=== PATIENT | female | born 1945 ===

== ENCOUNTER 2020-08-03 17:28 | Inpatient (IN) | payer OTHER, SELFPAY ==
[2020-08-03 17:53] VITALS: BP 141/88; PULSE 83; RESP 16; TEMP 37.1; O2SAT 96; BMI 37.5
--- NOTE | 2020-08-03 18:33 | CT_ITS ---
EXAMINATION: CT ABDOMEN AND PELVIS WITHOUT CONTRAST CLINICAL INFORMATION: Bilateral abdominal pain. History of small bowel obstruction, hernias, diverticulitis with perforation. COMPARISON: No recent priors. CT from 01/25/2009. TECHNIQUE: Multidetector volumetric imaging was performed from the superior aspect of the liver through the pubic symphysis. Sagittal and coronal reformatted images were obtained on the technologist's workstation. This CT examination was performed using dose optimization techniques as appropriate, variously including the following: *Automated exposure control *Adjustment of mA and/or kV according to patient size (this includes techniques or standardized protocols for targeted exams where dose is matched to indication/reason for exam; i.e. extremities or head) *Use of iterative reconstruction technique DLP: 839 mGy-cm FINDINGS: LUNG BASES: The lung bases are clear. The visualized cardiac structures are unremarkable. Small to moderate hiatal hernia. LIVER, GALLBLADDER, AND BILIARY TREE: The liver is normal in size, shape, and attenuation. No focal hepatic lesion or biliary ductal dilatation is present. The gallbladder is unremarkable with no evidence of radiopaque gallstones, gallbladder wall thickening, or obvious pericholecystic inflammatory changes. PANCREAS: Mild fatty atrophy of the pancreatic parenchyma. No focal abnormality. SPLEEN: Unremarkable. ADRENAL GLANDS: Unremarkable. KIDNEYS AND URETERS: The kidneys are normal in size, shape, and attenuation. No hydronephrosis, hydroureter, or calculi seen. No perinephric stranding. Lower pole exophytic renal cyst which measures 5.4 cm. BLADDER: Decompressed with no gross abnormality. GASTROINTESTINAL TRACT: Small to moderate hiatal hernia. There is mild fluid-filled prominence of the proximal small bowel. Dilated small bowel extends into the pelvis and right lower quadrant with gradual transition to decompressed small bowel in the right lower quadrant. The distal small bowel is normal in caliber. No colonic wall thickening or inflammatory change. Colonic diverticulosis noted without diverticulitis. There is a normal volume of stool throughout the colon. No free air. No free fluid. ABDOMINAL WALL: Multiple abdominal wall hernia repairs are noted. Small area of fluid at the ventral abdominal wall as seen on series 3 image 46 measuring 3.6 x 1.2 x 2 cm. LYMPH NODES: Normal. VASCULAR: Normal caliber aorta with mild atherosclerotic calcification. PELVIC VISCERA: The uterus and adnexa are unremarkable. OSSEOUS STRUCTURES: No acute or suspicious osseous abnormality. Mild degenerative changes in the hips. There is grade 1 anterolisthesis of L5 on S1 with disc space narrowing. Diffuse vacuum disc phenomenon with endplate osteophyte formation. CT/CT abdomen pelvis wo con IMPRESSION: Small bowel fluid-filled dilatation involving the proximal small bowel through the right lower quadrant where there is gradual transition to normal caliber small bowel. With this appearance this could represent a partial obstruction or ileus. This is not the appearance for high-grade obstruction. Small to moderate hiatal hernia.
--- NOTE | 2020-08-03 18:53 | ED_ITS ---
HPI - Abdominal Pain General Chief Complaint: Abdominal Pain Stated Complaint: abdominal pain,vomiting Time Seen by Provider: 08/03/20 18:23 Source: patient Mode of arrival: ambulatory Limitations: no limitations History of Present Illness HPI narrative: Patient comes to emergency room complaining of abdominal pain and vomiting and diarrhea. Patient states it has been ongoing for approximately 20 hours now. Yesterday, patient ate a salad that had been for a few days, patient ate it anyways. The patient states that soon after she started feeling abdominal pain, had 2 episodes of vomiting, and has been having loose stool. Patient states most of the pain is in the bilateral upper part of her abdomen. Patient states that she has history of small-bowel obstructions and is concerned that she may have a small bowel obstruction Related Data Allergies Allergy/AdvReac Type Severity Reaction Status Date / Time sulfamethoxazole Allergy Mild RASH Unverified 05/03/20 14:49 [From Bactrim] trimethoprim [From Bactrim] Allergy Mild RASH Unverified 05/03/20 14:49 Sulfa (Sulfonamide Allergy Unknown rash Verified 04/05/20 00:00 Antibiotics) amoxicillin AdvReac Unknown nausea and Verified 04/05/20 00:00 vomiting lisinopril AdvReac Unknown cough Verified 04/05/20 00:00 bactrim Allergy Unknown hives Uncoded 04/20/12 00:00 Review of Systems Review of Systems Constitutional : No Weight loss, No Fever, No Chills, No Night Sweats, No Fatigue, No Malaise ENT/Mouth : No Hearing loss, No Ear Pain, No Nasal Congestion, No Sinus Pain, No Hoarseness, No sore throat, No Rhinorrhea, No Swallowing Difficulty Eyes: No Eye Pain, No Swelling, No Redness, No Foreign Body, No Discharge, No Vision Changes Cardiovascular : No Chest Pain, No SOB, No Dyspnea on Exertion, No Orthopnea, No Edema, No Palpitations Respiratory : No Cough, No Sputum, No Wheezing, No Smoke Exposure, No Dyspnea Gastrointestinal : Patient complaining of nausea, vomiting, loose stools No Constipation, complaining of right upper and left upper abdominal pain, No Hematochezia, No Melena Genitourinary : no irregular bleeding, No Dysuria, No Urinary Frequency, No Hematuria, No Urinary Incontinence, No Urgency, No Flank Pain, No Urinary Flow Changes, No Hesitancy Musculoskeletal : No joint pain, No Myalgias, No Joint Swelling Skin : No Skin Lesions, No rash Neuro : No Weakness, No Numbness, No Paresthesias, No Loss of Consciousness, No Dizziness, No Headache Psych : No Anxiety/Panic, No Depression, No SI/HI/AH/VH, No Social Issues, Heme/Lymph: No Bruising, No Bleeding,No Lymphadenopathy Endocrine : No Polyuria, No Polydipsia, No Temperature Intolerance Physical Exam Vital Signs: Vital Signs: Last Vital Signs Temp 98.7 F 08/03/20 17:53 Pulse 83 08/03/20 17:53 Resp 16 08/03/20 17:53 BP 141/88 H 08/03/20 17:53 Pulse Ox 96 08/03/20 17:53 Body Mass Index 37.5 Appearance: Alert. Oriented X3. No acute distress. Well-appearing Eyes: Pupils equal, round and reactive to light. ENT: Pharynx normal. Neck: Normal inspection. Neck supple. No lymph nodes noted. No crepitus CVS: Normal heart rate and rhythm. Pulses normal. Normal S1 and S2 Respiratory: No respiratory distress. Breath sounds normal. No Wheezing. No rales Abdomen: Soft and mildly tender to palpation in bilateral upper quadrant, No rigidity. No distention. Skin: Skin warm and dry. Normal skin color. Normal skin turgor. Extremities: No lower extremity edema. No lower extremity edema. No Lacerations. No Rash Neuro: Oriented X 3. No motor deficit. No sensory deficit. Moving all extermities. No slurred speech. Course Course Course Narrative: I discussed the CT scan with Dr. Castro, at this time it does not seem that the patient will need surgery, he will be the consulting physician. Dr. Anurag Shaffer will be admitting the patient. At this time, unclear if this is ileus versus SBO. MDM - Abdominal Pain Lab Data Result diagrams: 08/03/20 19:08 08/03/20 19:08 Labs: Lab Results 08/03/20 08/03/20 08/03/20 Range/Units 19:08 19:08 19:08 WBC 11.5 H (4.8-10.8) X10*3/uL RBC 5.12 (4.20-5.50) X10*6/uL Hgb 15.8 (12.0-16.0) g/dl Hct 47.8 H (37-47) % MCV 93.4 (80-98) fL MCH 30.9 (27.0-33.0) pg MCHC 33.1 (31.0-35.0) g/dl RDW 13.4 (11.0-16.0) % Plt Count 266 (160-400) X10*3/uL MPV 11.4 (9.4-12.3) fL Immature Gran % (Auto) 0.3 (0.0-0.4) % Neut % (Auto) 79.4 H (45-73) % Lymph % (Auto) 12.2 L (20-40) % [place] % (Auto) 6.4 (2-11) % Eos % (Auto) 1.4 (0-4) % Baso % (Auto) 0.3 (0-2) % Lymph # (Auto) 1.4 (1.2-4.9) X10*3/uL [place] # (Auto) 0.7 (0.1-1.2) X10*3/uL Eos # (Auto) 0.2 (0.0-0.4) X10*3/uL Baso # (Auto) 0.0 (0.0-0.2) X10*3/uL Abs Immat Gran (auto) 0.04 H (0.00-0.03) X10*3/uL Absolute Neuts (auto) 9.1 H (2.0-8.3) X10*3/uL Absolute Nucleated RBC 0.000 (0.0-0.012) X10*3/uL Nucleated RBC % (auto) 0.0 (0.0-0.2) /100WBC Sodium 141 (135-145) mmol/L Potassium 4.1 (3.3-5.1) mmol/l Chloride 104 (96-108) mmol/L Carbon Dioxide 30 H (22-29) mmol/L Anion Gap 11 L (12-20) BUN 14 (9-16) mg/dL Creatinine 0.79 (0.5-1.4) mg/dL Estim Creat Clear Calc 72.6 Estimated GFR > 60 Random Glucose 117 H (60-115) mg/dL Calcium 9.4 (8.4-10.2) mg/dL Total Bilirubin 0.8 Cancelled (0.0-1.0) mg/dL Direct Bilirubin 0.3 Cancelled (0.0-0.5) mg/dL AST 16 Cancelled (5-31) U/L ALT 17 Cancelled (0-31) U/L Alkaline Phosphatase 93 Cancelled (39-117) U/L Total Protein 6.4 L Cancelled (6.5-8.0) g/dL Albumin 3.8 Cancelled (3.5-5.0) g/dL Lipase 20 Cancelled (8-78) U/L Imaging Data CT scan - abdomen: Radiologist's impression: FINDINGS: LUNG BASES: The lung bases are clear. The visualized cardiac structures are unremarkable. Small to moderate hiatal hernia. LIVER, GALLBLADDER, AND BILIARY TREE: The liver is normal in size, shape, and attenuation. No focal hepatic lesion or biliary ductal dilatation is present. The gallbladder is unremarkable with no evidence of radiopaque gallstones, gallbladder wall thickening, or obvious pericholecystic inflammatory changes. PANCREAS: Mild fatty atrophy of the pancreatic parenchyma. No focal abnormality. SPLEEN: Unremarkable. ADRENAL GLANDS: Unremarkable. KIDNEYS AND URETERS: The kidneys are normal in size, shape, and attenuation. No hydronephrosis, hydroureter, or calculi seen. No perinephric stranding. Lower pole exophytic renal cyst which measures 5.4 cm. BLADDER: Decompressed with no gross abnormality. GASTROINTESTINAL TRACT: Small to moderate hiatal hernia. There is mild fluid-filled prominence of the proximal small bowel. Dilated small bowel extends into the pelvis and right lower quadrant with gradual transition to decompressed small bowel in the right lower quadrant. The distal small bowel is normal in caliber. No colonic wall thickening or inflammatory change. Colonic diverticulosis noted without diverticulitis. There is a normal volume of stool throughout the colon. No free air. No free fluid. ABDOMINAL WALL: Multiple abdominal wall hernia repairs are noted. Small area of fluid at the ventral abdominal wall as seen on series 3 image 46 measuring 3.6 x 1.2 x 2 cm. LYMPH NODES: Normal. VASCULAR: Normal caliber aorta with mild atherosclerotic calcification. PELVIC VISCERA: The uterus and adnexa are unremarkable. OSSEOUS STRUCTURES: No acute or suspicious osseous abnormality. Mild degenerative changes in the hips. There is grade 1 anterolisthesis of L5 on S1 with disc space narrowing. Diffuse vacuum disc phenomenon with endplate osteophyte formation. CT/CT abdomen pelvis wo con IMPRESSION: Small bowel fluid-filled dilatation involving the proximal small bowel through the right lower quadrant where there is gradual transition to normal caliber small bowel. With this appearance this could represent a partial obstruction or ileus. This is not the appearance for high-grade obstruction. Small to moderate hiatal hernia. Discharge Plan Discharge Clinical Impression: Ileus Patient Disposition: Admitted As Inpatient [facility] Past Medical History Medical History Atrial fibrillation COPD, mild Migraine Morbid obesity Social History Social History Alcohol intake: never Use of substances other than those prescribed or required for medical reasons: No Advance Directives: No Advance Directives Information Provided: No
[2020-08-03] MEDS: 0.9 % Sodium Chloride 1,000 ML 999 ML IVCONT (19:10)
[2020-08-03] MEDS: ondansetron HCL 4 MG/2 ML VIAL IVPUSH (19:11)
[2020-08-03 19:14] LABS: MANUAL DIFF FLAG NO
[2020-08-03 19:17] LABS: Basophils Percent Auto 0.3 % (0-2); Eosinophils Absolute Auto 0.2 X10*3/uL (0.0-0.4); Eosinophils Percent Auto 1.4 % (0-4); Hematocrit 47.8 % (37-47); Hemoglobin 15.8 g/dl (12.0-16.0); Imm Gran Abs Auto 0.04 X10*3/uL (0.00-0.03); Imm Gran Pct Auto 0.3 % (0.0-0.4); Lymphocytes Absolute Auto 1.4 X10*3/uL (1.2-4.9); Lymphocytes Percent Auto 12.2 % (20-40); Mean Corpuscular HGB Conc 33.1 g/dl (31.0-35.0); Mean Corpuscular Hemoglobin 30.9 pg (27.0-33.0); Mean Corpuscular Volume 93.4 fL (80-98); Mean Platelet Volume 11.4 fL (9.4-12.3); Monocytes Absolute Auto 0.7 X10*3/uL (0.1-1.2); Monocytes Percent Auto 6.4 % (2-11); Neutrophils Absolute Auto 9.1 X10*3/uL (2.0-8.3); Neutrophils Percent Auto 79.4 % (45-73); Platelet Count 266 X10*3/uL (160-400); Red Blood Count 5.12 X10*6/uL (4.20-5.50); Red Cell Distribution Width 13.4 % (11.0-16.0); White Blood Count 11.5 X10*3/uL (4.8-10.8)
[2020-08-03 20:16] LABS: Alanine Aminotransferase 17 U/L (0-31); Albumin Level 3.8 g/dL (3.5-5.0); Alkaline Phosphatase 93 U/L (39-117); Anion Gap 11 (12-20); Aspartate Amino Transferase 16 U/L (5-31); Bilirubin Direct 0.3 mg/dL (0.0-0.5); Bilirubin Total 0.8 mg/dL (0.0-1.0); Blood Urea Nitrogen 14 mg/dL (9-16); Calcium 9.4 mg/dL (8.4-10.2); Carbon Dioxide 30 mmol/L (22-29); Chloride 104 mmol/L (96-108); Creatinine Clr Calc Pharmacy 72.6; Estimated Glomerular Filt Rate > 60; Glucose Random 117 mg/dL (60-115); Lipase 20 U/L (8-78); Potassium 4.1 mmol/l (3.3-5.1); Sodium 141 mmol/L (135-145); Total Protein 6.4 g/dL (6.5-8.0)
[2020-08-03] MEDS: Ketorolac Tromethamine 30 MG/ML VIAL IVPUSH (21:13)
[2020-08-03 22:07] VITALS: PULSE 73; RESP 16; TEMP 37.1; O2SAT 95
--- NOTE | 2020-08-03 23:51 | PM.IMHP ---
History of Present Illness Date of Service: 08/03/20 Chief Complaint: Abdominal pain 74 y/o with PmHX of HTN, Asthma, afib? and multiple intrabadominal surgeries who presented from home due to abdominal pain/Nausea/Vomiting. Per history provided by the patient, yesterday afternoon had an epigastric discomfort lasting several minutes associated with nausea and vomiting x 1. Today patient reports that symptoms returned for what decided to come to the ED. Patient has a strong hx of multiple intra abdominal surgeries including Large bowel perforation repair and hernia repair. On presentation to the ED patient is found to be hemodynamically stable, WBC of 11.5, CT abdomen showing partial obstruction or ileus. General surgery was made aware and Decision was given to medicine for admission. Patient seen and examined at the bedside, laying down in bed in no acute distress. ROS as above otherwise negative. Physical exam unremarkable. PMHX; HTN, Asthma, Large bowel perforation s/p repair and Hernia repair, Afib? PSX: as above Toxic habits: No hx of alcohol abuse, smoking or IVDA Review of Systems Constitutional: Constitutional: Reports as per [facility] Medical History Atrial fibrillation COPD, mild Migraine Morbid obesity Functional capacity: independent ambulation Social History Alcohol intake: never Use of substances other than those prescribed or required for medical reasons: No Advance Directives: No Advance Directives Information Provided: No Meds Allergies Allergy/AdvReac Type Severity Reaction Status Date / Time sulfamethoxazole Allergy Mild RASH Unverified 05/03/20 14:49 [From Bactrim] trimethoprim [From Bactrim] Allergy Mild RASH Unverified 05/03/20 14:49 Sulfa (Sulfonamide Allergy Unknown rash Verified 04/05/20 00:00 Antibiotics) amoxicillin AdvReac Unknown nausea and Verified 04/05/20 00:00 vomiting lisinopril AdvReac Unknown cough Verified 04/05/20 00:00 bactrim Allergy Unknown hives Uncoded 04/20/12 00:00 Home Medications Medication Instructions Recorded Confirmed Type Vitamin D (with calcium) 1 tab PO DAILY 08/03/20 08/03/20 History fluticasone furoate-vilanterol 2 inh INHALATION DAILY 08/03/20 08/03/20 History [Juanjo Parrish] metoprolol succinate 1 tab PO DAILY 08/03/20 08/03/20 History Physical Exam Vital Signs and Narrative: Vital Signs: Last Vital Signs Temp 98.8 F 08/03/20 22:07 Pulse 73 08/03/20 22:07 Resp 16 08/03/20 22:07 BP 141/88 H 08/03/20 17:53 Pulse Ox 95 08/03/20 22:07 Body Mass Index 37.5 Const: General: cooperative, comfortable and no acute distress HENMT: Head: Yes normal to inspection Eyes: General: appearance normal, both eyes and all related structures Neck: Yes normal visual inspection Chest: Chest palpation & inspection: normal inspection of the chest Resp: Effort & Inspection: normal respiratory effort Auscultation: clear to auscultation bilaterally Cardio: Jugular venous distension: no JVD Rate: regular rate Rhythm: regular rhythm Heart sounds: S1 normal heart sound present and S2 normal heart sound present GI: Inspection: Yes normal to inspection Percussion: Yes normal to percussion Skin: General skin exam: no rashes or lesions noted Results Labs CBC and Chem 7: 08/03/20 19:08 08/03/20 19:08 Labs: Laboratory Results - last 24 hr 08/03/20 08/03/20 08/03/20 19:08 19:08 19:08 MCV 93.4 MCH 30.9 MCHC 33.1 RDW 13.4 Plt Count 266 MPV 11.4 Immature Gran % (Auto) 0.3 Neut % (Auto) 79.4 H Lymph % (Auto) 12.2 L [place] % (Auto) 6.4 Eos % (Auto) 1.4 Baso % (Auto) 0.3 Lymph # (Auto) 1.4 [place] # (Auto) 0.7 Eos # (Auto) 0.2 Baso # (Auto) 0.0 Abs Immat Gran (auto) 0.04 H Absolute Neuts (auto) 9.1 H Absolute Nucleated RBC 0.000 Nucleated RBC % (auto) 0.0 Anion Gap 11 L Estim Creat Clear Calc 72.6 Estimated GFR > 60 Random Glucose 117 H Calcium 9.4 Total Bilirubin 0.8 Cancelled Direct Bilirubin 0.3 Cancelled AST 16 Cancelled ALT 17 Cancelled Alkaline Phosphatase 93 Cancelled Total Protein 6.4 L Cancelled Albumin 3.8 Cancelled Lipase 20 Cancelled Imaging Radiologist's Impressions: Impressions Abdomen/Pelvis CT 08/03/20 18:33 IMPRESSION: Small bowel fluid-filled dilatation involving the proximal small bowel through the right lower quadrant where there is gradual transition to normal caliber small bowel. With this appearance this could represent a partial obstruction or ileus. This is not the appearance for high-grade obstruction. Small to moderate hiatal hernia. Assessment and Plan (1) SBO (small bowel obstruction): Status: Acute Serial abdominal exams Keep K >4 and Mg >2 IV hydration Pain control General Surgery (2) Hypertension: Status: Acute continue with home BP meds (3) Asthma: Status: Acute continue with inhaler home dose
[2020-08-04] VITALS: BP 164/89; PULSE 75; RESP 15; TEMP 36.3; O2SAT 95
[2020-08-04 00:37] LABS: COVID-19 Test Negative (Negative)
[2020-08-04] MEDS: 0.9 % Sodium Chloride 1,000 ML 75 ML IVCONT (01:56)
[2020-08-04] MEDS: 0.9 % Sodium Chloride Flush 3 ML SYRINGE IVFLUSH (01:57)
[2020-08-04 06:30] LABS: MANUAL DIFF FLAG NO
[2020-08-04 06:55] LABS: Basophils Percent Auto 0.4 % (0-2); Eosinophils Absolute Auto 0.4 X10*3/uL (0.0-0.4); Hematocrit 40.4 % (37-47); Hemoglobin 12.9 g/dl (12.0-16.0); Imm Gran Abs Auto 0.04 X10*3/uL (0.00-0.03); Imm Gran Pct Auto 0.6 % (0.0-0.4); Lymphocytes Absolute Auto 1.9 X10*3/uL (1.2-4.9); Mean Corpuscular HGB Conc 31.9 g/dl (31.0-35.0); Mean Corpuscular Hemoglobin 30.4 pg (27.0-33.0); Mean Corpuscular Volume 95.3 fL (80-98); Mean Platelet Volume 11.8 fL (9.4-12.3); Monocytes Absolute Auto 0.6 X10*3/uL (0.1-1.2); Monocytes Percent Auto 8.6 % (2-11); Neutrophils Absolute Auto 3.8 X10*3/uL (2.0-8.3); Neutrophils Percent Auto 56.4 % (45-73); Platelet Count 220 X10*3/uL (160-400); Red Blood Count 4.24 X10*6/uL (4.20-5.50); Red Cell Distribution Width 13.5 % (11.0-16.0); White Blood Count 6.7 X10*3/uL (4.8-10.8)
[2020-08-04 07:11] LABS: Anion Gap 11 (12-20); Blood Urea Nitrogen 14 mg/dL (9-16); Calcium 8.5 mg/dL (8.4-10.2); Carbon Dioxide 26 mmol/L (22-29); Chloride 108 mmol/L (96-108); Creatinine Clr Calc Pharmacy 72.6; Estimated Glomerular Filt Rate > 60; Glucose Random 90 mg/dL (60-115); Potassium 4.2 mmol/l (3.3-5.1); Sodium 141 mmol/L (135-145)
[2020-08-04 08:00] VITALS: BP 129/80; PULSE 74; RESP 20; TEMP 36.9; O2SAT 95
[2020-08-04] MEDS: Fluticasone/Vilanterol 100/25 BLST.W.DEV 2 PUFF INHALE (08:02)
--- NOTE | 2020-08-04 09:58 | P.CONGS_ITS ---
History of Present Illness Consult details Consult date: 08/04/20 Narrative: 74F admitted last night for abdominal pain. She describes having upper abdominal pain starting the evening of . This persisted yesterday, become diffuse. She says she had 2 episodes of emesis at home. She says she had a lot of reflux as well. She came to the ED last night. A CT scan done showed some dilated small bowel loops suggesting partinal SBO vs. ileus. She feels much better today and stated she wants to sign out. She has had multiple abdl surgeries, including colon resection for perforated d iverticulitis(?), and incisional hernia repairs with mesh. Review of Systems Constitutional: Constitutional: Denies chills and Denies fever(s) Cardiovascular: Cardiovascular: Denies chest pain, Denies dyspnea and Denies dyspnea on exertion Respiratory: Respiratory: Denies cough, Denies dyspnea and Denies dyspnea on exertion Gastrointestinal: Gastrointestinal: Denies hematochezia and Denies change in bowel habits Genitourinary: Genitourinary: Denies hematuria Musculoskeletal: Musculoskeletal: Denies back pain and Denies limited range of motion Neurologic: Denies focal weakness and Denies convulsions Psychiatric: Psychiatric: Denies depression and Denies mood swings PMFSH Past Medical History Medical History Atrial fibrillation COPD, mild Migraine Morbid obesity Functional capacity: independent ambulation Surgical History Surgical History (Updated 08/04/20 @ 10:02 by Bertrand Castro MD) History of incisional hernia repair S/P colon resection Social History Social History Household Members: Other Housing: House Do you presently have visiting nurse or other home services: No Alcohol intake: never Smoking Status: Former smoker Tobacco Type: Cigarette Use of substances other than those prescribed or required for medical reasons: No Have you been hit, kicked, punched, or otherwise hurt by someone within the past year? If so, by whom?: No Do you feel safe in your current relationship?: Yes Is there a partner from a previous relationship who is making you feel unsafe now?: No Are you made to feel afraid or neglected: No Advance Directives: No Advance Directives Information Provided: No Do you have thoughts of harming others: None Do you have a plan to hurt others: No Plan Recently lost weight without trying: Yes Meds Allergies Allergy/AdvReac Type Severity Reaction Status Date / Time sulfamethoxazole Allergy Mild RASH Verified 08/04/20 01:46 [From Bactrim] trimethoprim [From Bactrim] Allergy Mild RASH Verified 08/04/20 01:46 Sulfa (Sulfonamide Allergy Unknown rash Verified 08/04/20 01:46 Antibiotics) amoxicillin AdvReac Unknown nausea and Verified 08/04/20 01:46 vomiting lisinopril AdvReac Unknown cough Verified 08/04/20 01:46 bactrim Allergy Unknown hives Uncoded 08/04/20 01:46 Home Medications Medication Instructions Recorded Confirmed Type Vitamin D (with calcium) 1 tab PO DAILY 08/03/20 08/03/20 History fluticasone furoate-vilanterol 2 inh INHALATION DAILY 08/03/20 08/03/20 History [Breo Ellipta] metoprolol succinate 1 tab PO DAILY 08/03/20 08/03/20 History Physical Exam Vital Signs: Vital Signs: Last Vital Signs Temp 98.4 F 08/04/20 08:00 Pulse 74 08/04/20 08:00 Resp 20 08/04/20 08:00 BP 129/80 08/04/20 08:00 Pulse Ox 95 08/04/20 08:00 Body Mass Index 37.5 Const: Other: obese General: comfortable and no acute distress Orientation/consciousness: patient oriented x3 Neck: Neck: Yes no lymphadenopathy Resp: Auscultation: clear to auscultation bilaterally Cardio: Rhythm: regular rhythm GI: Palpation (GI): Soft to palpation, nontender and no guarding Neuro: General: patient oriented x3 Results Labs Result diagrams: 08/04/20 05:56 08/04/20 05:56 Labs: Abnormal lab results 08/03/20 08/03/20 08/04/20 Range/Units 19:08 19:08 05:56 WBC 11.5 H (4.8-10.8) X10*3/uL Hct 47.8 H (37-47) % Immature Gran % (Auto) 0.6 H (0.0-0.4) % Neut % (Auto) 79.4 H (45-73) % Lymph % (Auto) 12.2 L (20-40) % Eos % (Auto) 6.0 H (0-4) % Abs Immat Gran (auto) 0.04 H 0.04 H (0.00-0.03) X10*3/uL Absolute Neuts (auto) 9.1 H (2.0-8.3) X10*3/uL Carbon Dioxide 30 H (22-29) mmol/L Anion Gap 11 L (12-20) Random Glucose 117 H (60-115) mg/dL Total Protein 6.4 L (6.5-8.0) g/dL 08/04/20 Range/Units 05:56 WBC (4.8-10.8) X10*3/uL Hct (37-47) % Immature Gran % (Auto) (0.0-0.4) % Neut % (Auto) (45-73) % Lymph % (Auto) (20-40) % Eos % (Auto) (0-4) % Abs Immat Gran (auto) (0.00-0.03) X10*3/uL Absolute Neuts (auto) (2.0-8.3) X10*3/uL Carbon Dioxide (22-29) mmol/L Anion Gap 11 L (12-20) Random Glucose (60-115) mg/dL Total Protein (6.5-8.0) g/dL Short CBC 08/03/20 08/04/20 Range/Units 19:08 05:56 WBC 11.5 H 6.7 (4.8-10.8) X10*3/uL Hgb 15.8 12.9 (12.0-16.0) g/dl Hct 47.8 H 40.4 (37-47) % Plt Count 266 220 (160-400) X10*3/uL BMP 08/03/20 08/04/20 19:08 05:56 Sodium 141 141 Potassium 4.1 4.2 Chloride 104 108 Carbon Dioxide 30 H 26 BUN 14 14 Creatinine 0.79 0.79 Calcium 9.4 8.5 D Liver Function 08/03/20 08/03/20 Range/Units 19:08 19:08 Total Bilirubin 0.8 Cancelled (0.0-1.0) mg/dL Direct Bilirubin 0.3 Cancelled (0.0-0.5) mg/dL AST 16 Cancelled (5-31) U/L ALT 17 Cancelled (0-31) U/L Alkaline Phosphatase 93 Cancelled (39-117) U/L Albumin 3.8 Cancelled (3.5-5.0) g/dL All other labs normal. Assessment and Plan (1) SBO (small bowel obstruction): Status: Acute I have reviewed her CT scan images and this shows mild small bowel dilatation proximally, tapering in the pelvis. In view of her multiple surgeries, this likely represents early partial SBO, although an ileus is also a differential. She feels much better and states she is passing flatus. She has had no vomitting overnight. I explained to her that I would recommend starting her on clear liquids and we can advance her diet as tolerated. She says she is signing out against medical advice. She understands the possible consequences, including recurrence of symptoms, and even aspiration with vomitting. She does have a very benign exam.
--- NOTE | 2020-08-04 10:50 | MHC.CM.PN ---
PATIENT IS LEAVING AMA. SHE DOES NOT WISH TO PARTICIPATE IN CASE MANAGEMENT ASSESSMENT. PATIENT DENIES NEED FOR HCP COMPLETION. RN AWARE OF PLAN.
--- NOTE | 2020-08-04 11:11 | PC.NURSE ---
PT ADAMANT ABOUT LEAVING SINCE LAST NIGHT. SEEN BY BOTH DR GARCIAS AND DR PULIDO. IV REMOVED, SIGNED SELF OUT AMA
--- NOTE | 2020-08-04 11:42 | PM.DS ---
DS: Providers Provider Date of admission: 08/03/20 23:49 Primary care physician: Gogo Grier MD Consults: 08/03/20 23:49 Consult to General Surgery Routine Consulting Provider: [facility] General Surgeons Reason for consultation: SBO Has provider been notified: No DS: Diagnosis Discharge Diagnosis (1) SBO (small bowel obstruction): Status: Acute DS: Medications Discharge Medications Home Medications: Home Medications Medication Instructions Recorded Confirmed Vitamin D (with calcium) 1 tab PO DAILY 08/03/20 08/03/20 fluticasone furoate-vilanterol 2 inh INHALATION DAILY 08/03/20 08/03/20 [Breo Ellipta] metoprolol succinate 1 tab PO DAILY 08/03/20 08/03/20 DS: Summary Hospital Course Hospital Course: 74-year-old female with history of previous abdominal surgeries admitted with partial obstruction versus ileus , patient was kept NPO, General surgery was consulted, patient refused to stay in the hospital and refused further treatment, explained to patient risk of not getting treatment including worsening obstruction and patient understands the risk but still refused to stay and left against medical advice Time Spent with Patient Time attestation: Total time spent providing and/or coordinating discharge services: Physical Exam Vital Signs: Vital Signs: Last Vital Signs Temp 98.4 F 08/04/20 08:00 Pulse 74 08/04/20 08:00 Resp 20 08/04/20 08:00 BP 129/80 08/04/20 08:00 Pulse Ox 95 08/04/20 08:00 Body Mass Index 37.5 DS: Data Data Completed and Pending Labs on day of discharge: 08/03/20 18:33 CT abdomen pelvis wo con Stat 08/03/20 18:34 ondansetron HCL [Zofran] 4 mg IVPUSH ONCE ONE 08/03/20 18:35 0.9 % Sodium Chloride [Ns] 1,000 ml IVCONT 999 mls/hr 08/03/20 19:08 Basic Metabolic Panel Stat Complete Blood Count Auto Diff Stat Lipase Stat Liver Panel Stat 08/03/20 20:54 Ketorolac Tromethamine [Toradol] 30 mg IVPUSH ONCE ONE 08/03/20 23:47 Code Status Routine Transfer Order Routine 08/03/20 23:49 0.9 % Sodium Chloride [Ns] 1,000 ml IVCONT 75 mls/hr Heparin Sodium,Porcine 5,000 unit SUBCUT Q8H 08/03/20 23:49 Ambulate QSHIFT WHILE AWAKE IV insert/maintain Q4HR Intake and Output QSHIFTE Vital Signs QSHIFT 08/04/20 00:00 COVID-19 ID NOW (Mathew) Stat 0.9 % Sodium Chloride Flush [NS Flush] 3 ml IVFLUSH QSHIFT 08/04/20 05:56 Basic Metabolic Panel Routine Complete Blood Count Auto Diff Routine 08/04/20 09:00 Fluticasone/Vilanterol 100/25 [Breo Ellipta 100/25] 2 puff INHALE DAILY Metoprolol Succinate ER [Toprol XL] 100 mg PO DAILY Laboratory Last Values WBC 6.7 X10*3/uL (4.8-10.8) 08/04/20 05:56 RBC 4.24 X10*6/uL (4.20-5.50) 08/04/20 05:56 Hgb 12.9 g/dl (12.0-16.0) 08/04/20 05:56 Hct 40.4 % (37-47) 08/04/20 05:56 MCV 95.3 fL (80-98) 08/04/20 05:56 MCH 30.4 pg (27.0-33.0) 08/04/20 05:56 MCHC 31.9 g/dl (31.0-35.0) 08/04/20 05:56 RDW 13.5 % (11.0-16.0) 08/04/20 05:56 Plt Count 220 X10*3/uL (160-400) 08/04/20 05:56 MPV 11.8 fL (9.4-12.3) 08/04/20 05:56 Immature Gran % (Auto) 0.6 % (0.0-0.4) H 08/04/20 05:56 Neut % (Auto) 56.4 % (45-73) 08/04/20 05:56 Lymph % (Auto) 28.0 % (20-40) 08/04/20 05:56 [place] % (Auto) 8.6 % (2-11) 08/04/20 05:56 Eos % (Auto) 6.0 % (0-4) H 08/04/20 05:56 Baso % (Auto) 0.4 % (0-2) 08/04/20 05:56 Lymph # (Auto) 1.9 X10*3/uL (1.2-4.9) 08/04/20 05:56 [place] # (Auto) 0.6 X10*3/uL (0.1-1.2) 08/04/20 05:56 Eos # (Auto) 0.4 X10*3/uL (0.0-0.4) 08/04/20 05:56 Baso # (Auto) 0.0 X10*3/uL (0.0-0.2) 08/04/20 05:56 Abs Immat Gran (auto) 0.04 X10*3/uL (0.00-0.03) H 08/04/20 05:56 Absolute Neuts (auto) 3.8 X10*3/uL (2.0-8.3) 08/04/20 05:56 Absolute Nucleated RBC 0.000 X10*3/uL (0.0-0.012) 08/04/20 05:56 Nucleated RBC % (auto) 0.0 /100WBC (0.0-0.2) 08/04/20 05:56 Sodium 141 mmol/L (135-145) 08/04/20 05:56 Potassium 4.2 mmol/l (3.3-5.1) 08/04/20 05:56 Chloride 108 mmol/L (96-108) 08/04/20 05:56 Carbon Dioxide 26 mmol/L (22-29) 08/04/20 05:56 Anion Gap 11 (12-20) L 08/04/20 05:56 BUN 14 mg/dL (9-16) 08/04/20 05:56 Creatinine 0.79 mg/dL (0.5-1.4) 08/04/20 05:56 Estim Creat Clear Calc 72.6 08/04/20 05:56 Estimated GFR > 60 08/04/20 05:56 Random Glucose 90 mg/dL (60-115) 08/04/20 05:56 Calcium 8.5 mg/dL (8.4-10.2) D 08/04/20 05:56 Total Bilirubin 0.8 mg/dL (0.0-1.0) 08/03/20 19:08 Total Bilirubin Cancelled 08/03/20 19:08 Direct Bilirubin 0.3 mg/dL (0.0-0.5) 08/03/20 19:08 Direct Bilirubin Cancelled 08/03/20 19:08 AST 16 U/L (5-31) 08/03/20 19:08 AST Cancelled 08/03/20 19:08 ALT 17 U/L (0-31) 08/03/20 19:08 ALT Cancelled 08/03/20 19:08 Alkaline Phosphatase 93 U/L (39-117) 08/03/20 19:08 Alkaline Phosphatase Cancelled 08/03/20 19:08 Total Protein 6.4 g/dL (6.5-8.0) L 08/03/20 19:08 Total Protein Cancelled 08/03/20 19:08 Albumin 3.8 g/dL (3.5-5.0) 08/03/20 19:08 Albumin Cancelled 08/03/20 19:08 Lipase 20 U/L (8-78) 08/03/20 19:08 Lipase Cancelled 08/03/20 19:08 COVID-19 (BILL) Negative (Negative) 08/04/20 00:00 COVID-19 Clin Com See Note 08/04/20 00:00 Discharge Plan Discharge Patient Disposition: Left Against Medical Advice Referrals: Gogo Grier MD [Primary Care Provider] - Discharge Medications: No Action metoprolol succinate 100 mg tablet extended release 24 hr 1 tab PO DAILY RF: 0 Breo Ellipta 100-25 mcg/dose blister with device 2 inh inhalation DAILY RF: 0 Vitamin D (with calcium) 1 tab PO DAILY RF: 0 Discharge Orders: Discharge Order (Routine); Ordered 08/24/20 Ordered By: Hector Reeder Discharge Date/Time: 08/04/20 11:03
== END 2020-08-04 11:03 | disposition left against medical advice (07) | DRG 247 ==
LOC: HO.ED 21:53 → HO.S3 08-04 00:50
PROVIDERS: Admitting Provider Internal Medicine; Emergency Provider Emergency Medicine; PCP Internal Medicine; Visit Provider Internal Medicine
DX: K56.609 Unspecified intestinal obstruction, unspecified as to partial versus complete obstruction (principal); E66.01 Morbid (severe) obesity due to excess calories; I48.91 Unspecified atrial fibrillation; I10 Essential (primary) hypertension; J45.909 Unspecified asthma, uncomplicated; Z20.828 Contact with and (suspected) exposure to other viral communicable diseases; Z68.37 Body mass index [BMI] 37.0-37.9, adult; Z88.0 Allergy status to penicillin; Z88.2 Allergy status to sulfonamides; Z79.51 Long term (current) use of inhaled steroids; Z79.899 Other long term (current) drug therapy
CPT/HCPCS: 36415; 74176; 80048; 80076; 83690; 85025; 87635; 96361; 96374; 96375; 99285; J1885; J2405

== ENCOUNTER 2021-02-16 08:55 | Outpatient (REF) | payer OTHER, SELFPAY ==
[2021-02-16 10:08] LABS: Alanine Aminotransferase 19 U/L (0-31); Albumin Level 4.1 g/dL (3.5-5.0); Alkaline Phosphatase 100 U/L (39-117); Anion Gap 16 (12-20); Aspartate Amino Transferase 19 U/L (5-31); Bilirubin Total 0.6 mg/dL (0.0-1.0); Blood Urea Nitrogen 21 mg/dL (9-16); Calcium 9.7 mg/dL (8.4-10.2); Carbon Dioxide 24 mmol/L (22-29); Chloride 107 mmol/L (96-108); Cholesterol 224 mg/dL; Estimated Glomerular Filt Rate > 60; Glucose Fasting 100 mg/dL (60-99); HDL Cholesterol 47 mg/dL; LDL Cholesterol Calculated 145 mg/dl; Potassium 4.7 mmol/L (3.3-5.1); Sodium 142 mmol/L (135-145); Total Protein 7.1 g/dL (6.5-8.0); Triglycerides 162 mg/dL
== END 2021-02-16 08:56 | disposition home or self-care (01) ==
LOC: HO.LAB 08:55
PROVIDERS: PCP Internal Medicine; Visit Provider Internal Medicine
DX: Z00.00 Encounter for general adult medical examination without abnormal findings (principal); R73.9 Hyperglycemia, unspecified; J45.909 Unspecified asthma, uncomplicated; E78.5 Hyperlipidemia, unspecified; I10 Essential (primary) hypertension
CPT/HCPCS: 36415; 80053; 80061

== ENCOUNTER 2022-02-04 10:34 | Outpatient (REF) | payer OTHER, SELFPAY ==
[2022-02-04 10:49] LABS: MANUAL DIFF FLAG NO
[2022-02-04 11:50] LABS: Basophils Absolute Auto 0.1 X10*3/uL (0.0-0.2); Basophils Percent Auto 0.9 % (0-2); Eosinophils Absolute Auto 0.6 X10*3/uL (0.0-0.4); Eosinophils Percent Auto 9.1 % (0-4); Hematocrit 45.2 % (37.0-47.0); Hemoglobin 14.4 g/dl (12.0-16.0); Imm Gran Abs Auto 0.08 X10*3/uL (0.00-0.03); Imm Gran Pct Auto 1.3 % (0.0-0.4); Lymphocytes Absolute Auto 1.4 X10*3/uL (1.2-4.9); Lymphocytes Percent Auto 21.6 % (20-40); Mean Corpuscular HGB Conc 31.9 g/dl (31.0-35.0); Mean Corpuscular Hemoglobin 30.4 pg (27.0-33.0); Mean Corpuscular Volume 95.6 fL (80.0-98.0); Mean Platelet Volume 11.5 fL (9.4-12.3); Monocytes Absolute Auto 0.5 X10*3/uL (0.1-1.2); Monocytes Percent Auto 7.2 % (2-11); Neutrophils Absolute Auto 3.8 x10*3/uL (2.0-8.3); Neutrophils Percent Auto 59.9 % (45-73); Platelet Count 280 X10*3/uL (160-400); Red Blood Count 4.73 X10*6/uL (4.20-5.50); Red Cell Distribution Width 13.7 % (11.0-16.0); White Blood Count 6.4 X10*3/uL (4.8-10.8)
[2022-02-04 12:33] LABS: TSH reflex Free T4 2.73 uIU/mL (0.32-4.0); Vitamin D 25-OH Total 31.9 ng/mL (>30)
[2022-02-04 13:18] LABS: Alanine Aminotransferase 19 U/L (0-31); Alkaline Phosphatase 101 U/L (39-117); Anion Gap 15 (12-20); Aspartate Amino Transferase 19 U/L (5-31); Bilirubin Total 0.7 mg/dL (0.0-1.0); Blood Urea Nitrogen 17 mg/dL (9-16); Calcium 9.3 mg/dL (8.4-10.2); Carbon Dioxide 24 mmol/L (22-29); Chloride 106 mmol/L (96-108); Cholesterol 211 mg/dL; Estimated Glomerular Filt Rate > 60; Glucose Fasting 97 mg/dL (60-99); HDL Cholesterol 49 mg/dL; LDL Cholesterol Calculated 137 mg/dl; Potassium 4.7 mmol/L (3.3-5.1); Sodium 140 mmol/L (135-145); Triglycerides 126 mg/dL
[2022-02-04 13:22] LABS: Folate 9.7 ng/mL (> or = 4.0); Vitamin B12 168 pg/mL (200-900)
== END 2022-02-04 10:35 | disposition home or self-care (01) ==
LOC: HO.LAB 10:34
PROVIDERS: Absent Provider Internal Medicine Cardiovascular Disease; PCP Internal Medicine; Visit Provider Internal Medicine
DX: I48.91 Unspecified atrial fibrillation (principal); E78.5 Hyperlipidemia, unspecified; R73.9 Hyperglycemia, unspecified; I10 Essential (primary) hypertension
CPT/HCPCS: 36415; 80053; 80061; 82306; 82607; 82746; 84443; 85025

== ENCOUNTER 2022-10-23 09:44 | Outpatient (REF) | payer OTHER, SELFPAY ==
--- NOTE | ~2022-10-23 | XR_ITS ---
EXAMINATION: XR CHEST CLINICAL INFORMATION: Cough COMPARISON: 08/29/2019 TECHNIQUE: 2 views of the chest were obtained. FINDINGS: Heart size normal. No evidence of CHF. There is a new area of consolidation present in the right mid lung. Heart size normal. Again noted is a hiatal hernia. The left lung is clear. No pleural effusions. There is evidence of prior abdominal wall/hernia repairs. XR/XR chest 2V IMPRESSION: New area of consolidation right midlung consistent with pneumonia. Repeat imaging after treatment is recommended to document clearing.
[2022-10-23 14:22] LABS: Influenza A PCR NEGATIVE (Negative); Influenza B PCR NEGATIVE (Negative); Resp Syncy Virus RNA Qual PCR NEGATIVE (Negative); SARS COV2 PCR INHOUSE NEGATIVE (Negative)
== END 2022-10-23 09:45 | disposition home or self-care (01) ==
LOC: HO.HMGCX 09:44
PROVIDERS: PCP Internal Medicine; Visit Provider Nurse Practitioner Family
DX: Z20.822 Contact with and (suspected) exposure to COVID-19 (principal); R05.9 Cough, unspecified; R09.89 Other specified symptoms and signs involving the circulatory and respiratory systems; J06.9 Acute upper respiratory infection, unspecified
CPT/HCPCS: 0241U; 71046

== ENCOUNTER → 2022-12-17 15:01 | Outpatient (BNVA) | payer OTHER, SELFPAY | PROVIDERS: PCP Internal Medicine; Visit Provider Physician Assistant Medical | DX: S76.311A Strain of muscle, fascia and tendon of the posterior muscle group at thigh level, right thigh, initial encounter (principal); S80.212A Abrasion, left knee, initial encounter; W18.30XA Fall on same level, unspecified, initial encounter | CPT/HCPCS: 73502; 99204 ==

== ENCOUNTER → 2022-12-24 14:59 | Outpatient (BNVA) | payer OTHER, SELFPAY | PROVIDERS: PCP Internal Medicine; Visit Provider Physician Assistant | DX: S76.311A Strain of muscle, fascia and tendon of the posterior muscle group at thigh level, right thigh, initial encounter (principal); S80.212A Abrasion, left knee, initial encounter; W18.30XA Fall on same level, unspecified, initial encounter | CPT/HCPCS: 99214 ==

== ENCOUNTER → 2023-01-01 15:00 | Outpatient (BNVA) | payer OTHER, SELFPAY | PROVIDERS: PCP Internal Medicine; Visit Provider Physician Assistant | DX: S76.311A Strain of muscle, fascia and tendon of the posterior muscle group at thigh level, right thigh, initial encounter (principal); W18.30XA Fall on same level, unspecified, initial encounter; R60.0 Localized edema | CPT/HCPCS: 99214 ==

== ENCOUNTER 2023-01-01 15:28 | Emergency (ER) | payer OTHER, SELFPAY ==
--- NOTE | ~2023-01-01 | US_ITS ---
EXAMINATION: US VENOUS ULTRASOUND WITH DOPPLER LOWER EXTREMITY, RIGHT CLINICAL INFORMATION: Right lower extremity edema COMPARISON: None available. TECHNIQUE: Ultrasound of the deep veins is performed from the hip to the calf with compression sonography and color and pulse Doppler assessment. Spectral analysis with color-flow imaging is performed. FINDINGS: There is normal venous compression and respiratory variation and augmented flow. The visualized common femoral vein, superficial femoral vein, profunda femoral vein, popliteal vein, and the trifurcation region shows no evidence of deep venous thrombosis. The proximal posterior tibial veins and peroneal veins are not well visualized. There is no significant popliteal fossa cyst. If the patient's symptoms persist, followup ultrasound in 5 days 7 days might be of value to exclude proximal propagation from a non-visualized calf vein. US/US venous duplex LE RT IMPRESSION: No DVT demonstrated in the right lower extremity.
--- NOTE | 2023-01-01 15:35 | ED_ITS ---
HPI - General Adult General Chief complaint: Extremity Problem Stated complaint: Possible blood clot inner side of right knee Time Seen by Provider: 01/01/23 16:55 Source: patient Limitations: no limitations History of Present Illness HPI narrative: 77-year-old female who states she tore her right hamstring on December 19 after a fall at work. Patient was seen by [employer] had multiple x-rays done that were all negative. Patient has longstanding history of peripheral vascular lesion lower extremities and has been seen by vascular surgeon in the past. Patient has history of hyperlipidemia, hypertension, asthma vitamin B12 defici ency. Patient seen by Dr. Belcher views done vein work on the right lower leg in the past. Patient presented the ER today with worsening swelling and ecchymosis to the right lower leg into the calf region. There were concerns for DVT so was sent in for duplex ultrasound. Patient states she usually wears compression stockings but has had difficulty putting them on. Patient denies shortness of breath fever chills. Related Data Home Medications Medication Instructions Recorded Confirmed Vitamin D (with calcium) 1 tab PO DAILY 08/03/20 10/29/22 metoprolol succinate 100 mg 1 tab PO DAILY 08/03/20 10/29/22 tablet,extended release 24 hr Previous Rx's Medication Instructions Recorded sumatriptan 20 mg/actuation nasal 20 mg intranasal Q2H PRN migraine 11/15/20 spray (Imitrex) headache #1 ea estradiol 0.01% (0.1 mg/gram) 0.25 appful vaginal 3XW #42.5 grams 02/22/21 vaginal cream (Estrace) cyanocobalamin (vitamin B-12) 1,000 mcg PO DAILY #90 caps 02/05/22 1,000 mcg capsule fluticasone furoate 100 2 inh inhalation DAILY #180 ea 09/24/22 mcg-vilanterol 25 mcg/dose inhalation powder (Breo Ellipta) hydrocodone 10 mg-chlorpheniramine 5 ml PO Q12H PRN cold symptoms #70 10/24/22 8 mg/5 mL oral susp extend.rel 12hr mL ibuprofen 800 mg tablet 800 mg PO Q8H PRN pain #30 tabs 01/01/23 Allergies Allergy/AdvReac Type Severity Reaction Status Date / Time sulfamethoxazole Allergy Mild RASH Verified 10/29/22 11:35 [From Bactrim] trimethoprim [From Bactrim] Allergy Mild RASH Verified 10/29/22 11:35 Sulfa (Sulfonamide Allergy Unknown rash Verified 10/29/22 11:35 Antibiotics) amoxicillin AdvReac Unknown nausea and Verified 10/29/22 11:35 vomiting lisinopril AdvReac Unknown cough Verified 10/29/22 11:35 Review of Systems Review of Systems: General: No fever, no chills ENT: No sore throat, no ear pain Cardiovascular: No chest pain, no peripheral edema, no shortness of breath Respiratory: No dyspnea, no sputum production, no cough Muscle skeletal: Right leg pain GI: No abdominal pain: no nausea vomiting, no diarrhea Psychiatric: No depression, no suicidal ideation, no homicidal ideation Skin: Positive swelling ecchymosis erythema right lower extremity Immunology: No immunocompromised Hematology: No bleeding, no bruising PMFSH Past Medical History Attestation statement: The following information was validated with the patient. Medical History Annual physical exam Atrial fibrillation COPD, mild Hyperglycemia Hyperlipidemia Migraine Morbid obesity Surgical History History of section History of incisional hernia repair S/P colon resection Family History Family History Father CHF (congestive heart failure) Mother No problems noted. Son No problems noted. Son No problems noted. Social History Social History Household Members: Other Housing: House Do you presently have visiting nurse or other home services: No Alcohol intake: never Patient Tobacco Use Status: Former Tobacco user Quit Date: 40 years ago e-Cigarette/Vaping Use: Never Used Advance Directives: No Advance Directives Information Provided: No service: No Current occupational status: employed Cognitive needs: No Hearing needs: No Vision needs: Yes Physical Exam ED Vital Signs: Vital Signs - 24 hr 01/01/23 15:36 Temperature 98.1 F Pulse Rate 81 Respiratory Rate 18 Blood Pressure 174/92 H Pulse Oximetry 97 Oxygen Delivery Method Room Air BMI result Body Mass Index 41.2 General appearance: Awake, alert, cooperative, in no acute distress Skin: Right lower extremity areas of erythema ecchymosis upper calf medial aspect versus hematoma positive tenderness Eyes: PERRL, EOMI, no icterus ENT: Oropharynx normal, uvula midline Neck: Soft supple full range of motion Pulmonary: Breath sounds clear to auscultation bilaterally, no accessory muscle use Cardiovascular: Regular rate and rhythm, no murmurs and rub Extremities: Positive edema in tenderness the right lower leg extending into the calf and hamstring. Sensations intact pulses intact Neuro: Alert oriented x3, no focal deficit Psych: Normal affect Course Course Course Narrative: 77-year-old female presents with concerns blood clot to right lower extremity, reports injury of torn hamstring few weeks ago, and now think she has a clot reports pain to R. lateral knee region. Was sent here from the [facility]. Hx of clots. Not on blood thinners. PE benign Plan- venous duplex Medical Decision Making Medical Decision Making [facility] Narrative: Right leg DVT Peripheral vascular disease Right leg hematoma Dependent swelling right lower extremity Compartment syndrome 77-year-old female with extensive past medical history known venous deficiency peripheral vascular disease Injury originally occurred on December 19 swelling ecchymosis has continued she was told that she tore her hamstring muscle. Case discussed with Dr. Holcomb who recommends a CT scan of the lower extremity with IV contrast to evaluate for hematoma versus large amounts of blood in the right lower extremity. Patient has refused CT scan of the lower extremity and IV contrast would rather go home at this time. Plans to continue to follow up labs and ultrasound reviewed at length with patient. The concerns for compartment syndrome explained at length to the patient patient is still refusing CT scan at this time. Positive pulses in the right lower extremity Patient requests a prescription strength Motrin at this time. Lab Data 01/01/23 15:53 01/01/23 15:53 Labs: Lab Results 01/01/23 01/01/23 01/01/23 Range/Units 15:53 15:53 15:53 WBC 6.5 (4.8-10.8) X10*3/uL RBC 4.01 L (4.20-5.50) X10*6/uL Hgb 12.2 (12.0-16.0) g/dl Hct 38.7 (37.0-47.0) % MCV 96.5 (80.0-98.0) fL MCH 30.4 (27.0-33.0) pg MCHC 31.5 (31.0-35.0) g/dl RDW 15.2 (11.0-16.0) % Plt Count 327 (160-400) X10*3/uL MPV 10.6 (9.4-12.3) fL Immature Gran % (Auto) 0.5 H (0.0-0.4) % Neut % (Auto) 59.5 (45-73) % Lymph % (Auto) 20.5 (20-40) % [place] % (Auto) 8.3 (2-11) % Eos % (Auto) 10.3 H (0-4) % Baso % (Auto) 0.9 (0-2) % Lymph # (Auto) 1.3 (1.2-4.9) X10*3/uL [place] # (Auto) 0.5 (0.1-1.2) X10*3/uL Eos # (Auto) 0.7 H (0.0-0.4) X10*3/uL Baso # (Auto) 0.1 (0.0-0.2) X10*3/uL Abs Immat Gran (auto) 0.03 (0.00-0.03) X10*3/uL Absolute Neuts (auto) 3.9 (2.0-8.3) x10*3/uL Absolute Nucleated RBC 0.000 (0.0-0.012) X10*3/uL Nucleated RBC % (auto) 0.0 (0.0-0.2) /100WBC PT 11.1 (10.0-13.1) SEC INR 1.0 (0.9-1.1) Sodium 144 (135-145) mmol/L Potassium 4.4 (3.3-5.1) mmol/L Chloride 107 (96-108) mmol/L Carbon Dioxide 26 (22-29) mmol/L Anion Gap 15 (12-20) BUN 18 H (9-16) mg/dL Creatinine 0.82 (0.5-1.4) mg/dL Estim Creat Clear Calc 70.3 Estimated GFR > 60 Random Glucose 93 (60-115) mg/dL Calcium 9.7 (8.4-10.2) mg/dL Magnesium 2.3 (1.6-2.6) mg/dL Total Bilirubin 0.7 (0.0-1.0) mg/dL AST 15 (5-31) U/L ALT 12 (0-31) U/L Alkaline Phosphatase 102 (39-117) U/L Total Protein 6.5 (6.5-8.0) g/dL Albumin 3.7 (3.5-5.0) g/dL Radiology Impression Discussion of test interpretation with radiology: I have reviewed the radiologist's reading. Radiologist Impression: [address] [id number] ReportSigned Patient: Marija Tompkins FMR#: [id number]: 7Acct:[id number]/Sex: 77 / FADM Date: 01/01/23Loc: EDAttending Dr: Ordering Physician: Mckinley Oliveira Date of Service: 01/01/23 Procedure(s): US venous duplex LE RT Accession Number(s): [id number] cc: Mckinley Oliveira~ EXAMINATION: US VENOUS ULTRASOUND WITH DOPPLER LOWER EXTREMITY, RIGHT CLINICAL INFORMATION: Right lower extremity edema COMPARISON: None available. TECHNIQUE: Ultrasound of the deep veins is performed from the hip to the calf with compression sonography and color and pulse Doppler assessment. Spectral analysis with color-flow imaging is performed. FINDINGS: There is normal venous compression and respiratory variation and augmented flow. The visualized common femoral vein, superficial femoral vein, profunda femoral vein, popliteal vein, and the trifurcation region shows no evidence of deep venous thrombosis. The proximal posterior tibial veins and peroneal veins are not well visualized. There is no significant popliteal fossa cyst. If the patient's symptoms persist, followup ultrasound in 5 days 7 days might be of value to exclude proximal propagation from a non-visualized calf vein. US/US venous duplex LE RT IMPRESSION: No DVT demonstrated in the right lower extremity. Dictated By:Zac Moore MDSigned By:<Electronically signed by Zac Moore MD in [place]>01/01/23 1647 DD/ 1621TD/TT: Tile Grinder: Discharge Plan Discharge Clinical Impression: Hematoma of right lower extremity, Hamstring tear Patient Disposition: Home, Self-Care Instructions: Hamstring Injury (ED) Additional Instructions: Ultrasound of the right lower leg showed no signs of a DVT Do your best to elevate extremity use compression stockings Motrin for pain return if symptoms worsen Patient may return to work tomorrow Prescriptions: New ibuprofen 800 mg tablet 800 mg PO Q8H PRN (Reason: pain) Qty: 30 0RF No Action estradiol [Estrace] 0.01 % (0.1 mg/gram) cream 0.25 appful vaginal 3XW Qty: 42.5 3RF cyanocobalamin (vitamin B-12) 1,000 mcg capsule 1,000 mcg PO DAILY Qty: 90 1RF Breo Ellipta 100-25 mcg/dose blister with device 2 inh inhalation DAILY Qty: 180 3RF hydrocodone-chlorpheniramine 10-8 mg/5 mL suspension,extended rel 12 hr 5 ml PO Q12H PRN (Reason: cold symptoms) Qty: 70 0RF Rx Instructions: Partial Fill upon patient request. metoprolol succinate 100 mg tablet extended release 24 hr 1 tab PO DAILY Vitamin D (with calcium) 1 tab PO DAILY sumatriptan [Imitrex] 20 mg/actuation spray,non-aerosol 20 mg intranasal Q2H PRN (Reason: migraine headache) Qty: 1 0RF Rx Instructions: administer into one nostril as a single dose; if 2nd dose needed,administer into other nostril after at least 2 hrs, NTE 2 doses (40 mg) per episode Stand Alone Forms: Work/School Release
[2023-01-01 15:36] VITALS: BP 174/92; PULSE 81; RESP 18; TEMP 36.7; O2SAT 97; BMI 41.2
[2023-01-01 15:58] LABS: MANUAL DIFF FLAG NO
[2023-01-01 15:59] LABS: Basophils Absolute Auto 0.1 X10*3/uL (0.0-0.2); Basophils Percent Auto 0.9 % (0-2); Eosinophils Absolute Auto 0.7 X10*3/uL (0.0-0.4); Eosinophils Percent Auto 10.3 % (0-4); Hematocrit 38.7 % (37.0-47.0); Hemoglobin 12.2 g/dl (12.0-16.0); Imm Gran Abs Auto 0.03 X10*3/uL (0.00-0.03); Imm Gran Pct Auto 0.5 % (0.0-0.4); Lymphocytes Absolute Auto 1.3 X10*3/uL (1.2-4.9); Lymphocytes Percent Auto 20.5 % (20-40); Mean Corpuscular HGB Conc 31.5 g/dl (31.0-35.0); Mean Corpuscular Hemoglobin 30.4 pg (27.0-33.0); Mean Corpuscular Volume 96.5 fL (80.0-98.0); Mean Platelet Volume 10.6 fL (9.4-12.3); Monocytes Absolute Auto 0.5 X10*3/uL (0.1-1.2); Monocytes Percent Auto 8.3 % (2-11); Neutrophils Absolute Auto 3.9 x10*3/uL (2.0-8.3); Neutrophils Percent Auto 59.5 % (45-73); Platelet Count 327 X10*3/uL (160-400); Red Blood Count 4.01 X10*6/uL (4.20-5.50); Red Cell Distribution Width 15.2 % (11.0-16.0); White Blood Count 6.5 X10*3/uL (4.8-10.8)
[2023-01-01 16:07] LABS: Prothrombin Time 11.1 SEC (10.0-13.1)
[2023-01-01 16:16] LABS: Alanine Aminotransferase 12 U/L (0-31); Albumin Level 3.7 g/dL (3.5-5.0); Alkaline Phosphatase 102 U/L (39-117); Anion Gap 15 (12-20); Aspartate Amino Transferase 15 U/L (5-31); Bilirubin Total 0.7 mg/dL (0.0-1.0); Blood Urea Nitrogen 18 mg/dL (9-16); Calcium 9.7 mg/dL (8.4-10.2); Carbon Dioxide 26 mmol/L (22-29); Chloride 107 mmol/L (96-108); Creatinine Clr Calc Pharmacy 70.3; Estimated Glomerular Filt Rate > 60; Glucose Random 93 mg/dL (60-115); Magnesium 2.3 mg/dL (1.6-2.6); Potassium 4.4 mmol/L (3.3-5.1); Sodium 144 mmol/L (135-145); Total Protein 6.5 g/dL (6.5-8.0)
--- NOTE | 2023-01-01 17:23 | PC.NURSE ---
Provider at bedside explaining to patient the need for a CT with with IV contrast and indications for it- patient refusing CT.
--- NOTE | 2023-01-01 17:40 | PC.NURSE ---
pedal pulses palpable bilaterally as well as audible bilaterally via doppler.
[2023-01-01 17:51] VITALS: BP 214/97; PULSE 80; RESP 18; TEMP 37.1; O2SAT 97
--- NOTE | 2023-01-01 17:56 | MHC.EDTECH ---
I obtained patients blood pressure, Left arm was 201/100, right arm 214/97. I spoke with the Dr. the patient stated to the , Nurse, and myself she is on Metoprolol for A fib for years and does not want her medication adjusted for blood pressure. 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 SG
--- NOTE | 2023-01-01 17:58 | PC.NURSE ---
patient noted to be hypertensive- provider aware. patient refusing meds, states she is ready to leave and that she will follow up with her PCP and have the school nurse check her BP. Patient aware of reasons to seek prompt medical attention
== END 2023-01-01 18:00 | disposition home or self-care (01) ==
PROVIDERS: Physician Assistant; Emergency Provider Emergency Medicine
DX: Z04.2 Encounter for examination and observation following work accident (principal); S76.311A Strain of muscle, fascia and tendon of the posterior muscle group at thigh level, right thigh, initial encounter; S80.11XD Contusion of right lower leg, subsequent encounter; W19.XXXD Unspecified fall, subsequent encounter; M79.604 Pain in right leg; I10 Essential (primary) hypertension; E78.5 Hyperlipidemia, unspecified; R60.0 Localized edema
CPT/HCPCS: 36415; 80053; 83735; 85025; 85610; 93971; 99283; 99284

== ENCOUNTER → 2023-01-07 15:20 | Outpatient (BNVA) | payer OTHER, SELFPAY | PROVIDERS: Visit Provider Physician Assistant | DX: S86.111A Strain of other muscle(s) and tendon(s) of posterior muscle group at lower leg level, right leg, initial encounter (principal); S80.212A Abrasion, left knee, initial encounter; W18.30XA Fall on same level, unspecified, initial encounter; R60.1 Generalized edema | CPT/HCPCS: 99214 ==

== ENCOUNTER 2023-02-12 09:00 | Outpatient (RCR) | payer OTHER, SELFPAY ==
--- NOTE | 2023-01-02 11:52 | MHC.PT.EP ---
[facility] [place] Office [place] Office [place] Office [address] Rima Naqvi [address] [phone] F: [phone] F: [phone] F: [phone] F: [phone] Physical Therapy Plan of Care Date of Evaluation: Date of Surgery: n/a Diagnosis: R hamstring tear, LBP Assessment: Patient is a 77 year old female presenting to PT with complaints of pain in her low back and R hamstring. Pt reports onset of pain began 12/19/2022 due to slipping and falling on water at work. She presents today with impairments in pain, swelling, knee ROM, strength, gait. 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 Pt expresses terminal carman goal of returning to [employer], and is motivated to work towards this in PT. Clinical presentation today is most consistent with signs and sx associated with R hamstring tear however she is demonstrating sx of compartment syndrome although this has not been ruled out at this time as pt refused CT scan in ED yesterday. Pt will benefit from skilled PT 1 week x 4 weeks to address the following problems and impairments noted upon evaluation: pain, swelling, knee ROM, strength, gait. These problems limit the patient with the following functional activities: ADLs, ambulating, sitting, work. The prescribed treatment plan of care is medically necessary. Co-morbidities of afib, hx DVT, vascular disease, ED concern for compartment syndrome which was not ruled out as pt refused CT were identified and taken into considerations of plan of care. Pt was educated on HEP, role of PT, prognosis, POC. Educated her on elevating with legs above the heart to help with swelling in leg vs with leg below the hear. Extensive discussion today regarding ED concern for compartment syndrome. She is demonstrating sx of compartment syndrome here today as outlined above (tingling, pain, swelling, redness, shininess). Educated her that if CT was recommended it was for a good reason and she should consider having this completed due to the dangers of compartment syndrome and the fact that she is currently demonstrating multiple sx of this. She is seeing her vascular doctor next week so recommend not following up with us in PT until after that appointment. Advised pt that I feel a CT scan is a good idea as well. Frequency and Duration: The patient will be seen 1 x week x 4 weeks Short Term Goals: Pt will attend appointment with vascular doctor next week. Pt will be compliant with elevating her leg above the heart to help with swelling in 1 week. Pt will demonstrate improved knee ROM to equal B in 2 weeks. Pt will demonstrate improved RLE swelling by 2 cm in 2 weeks. Gluer Machine Setup Operator Goals: Pt will demonstrate improved LEFI score by 9 points in 4 weeks for improved functional mobility. Pt will demonstrate ability to ambulate with min to no pain in 4 weeks for improved tolerance to ADLs and work. Treatment Plan: Modalities to reduce pain, spasms and effusion. Manual therapy to restore motion and function. Therapeutic exercise to improve strength and flexibility. Neuromuscular re-education for posture and balance. Therapeutic activities to return to functional activities of daily living. Electronically signed by: Palma Rodríguez, PT, DPT, ATC Please sign and return to therapist. Thank you for your referral.
--- NOTE | 2023-02-12 09:50 | MHC.PT.DC ---
[facility] [place] Office [place] Office [place] Office [address] Rima Naqvi [address] [phone] F: [phone] F: [phone] F: [phone] F: [phone] Physical Therapy Discharge Report Diagnosis: R hamstring tear, LBP Date of Surgery: n/a Date of Evaluation: 01/02/23 Date of Discharge: 02/12/23 Treatments to Date: 7 Cancellations to Date: 1 No Shows to Date: 0 Discharge Status: Achieved Goals Improved Function Independent with HEP Discharge Summary: 02/12/2023: Pt has made progress in her hs pain and limitations since start of care. Her continued impairments are in relation to the continued excessive swelling in her RLE since the injury. She does have vascular problems and this is likely correlated to those issues. She has seen and will be following up with the vascular doctor to monitor this. At this point we have maximized all we can for her hs and really her only continued limitation is swelling below the knee. We discussed that this will likely take quite some time to resolve and discussed ways she can assist it with things like elevating and her current HEP. She demonstrates understanding. Skilled PT is no longer indicated at this time and pt is in agreement with d/c today. Electronically signed by: Palma Rodríguez, PT, DPT, ATC Please sign and return to therapist. Thank you for your referral.
== END 2023-02-12 09:50 | disposition home or self-care (01) ==
LOC: HO.PTCHIC 09:00
PROVIDERS: PCP Internal Medicine; Visit Provider Physician Assistant
DX: S76.911D Strain of unspecified muscles, fascia and tendons at thigh level, right thigh, subsequent encounter (principal); M54.50 Low back pain, unspecified
CPT/HCPCS: 97110; 97162

== ENCOUNTER 2024-01-08 11:56 | Outpatient (AMB) | payer OTHER, SELFPAY ==
--- NOTE | 2024-01-08 12:06 | A.OFFPC_ITS ---
Vital Signs 01/08/24 12:07 Height 5 ft 4 in BMI Reason not done Patient refused/unable BP 134/82 Blood Pressure Location Lt brachial Position Sitting Pulse 69 Pulse Source Pulse Oximeter Pulse Oximetry (%) 96 Oxygen Delivery Method Room Air Intake Visit Reasons: Annual PE Over due Intake Note: Pt is here today for PE. Allergies sulfamethoxazole [From Bactrim] Allergy (Mild, Verified 01/08/24 12:09) RASH trimethoprim [From Bactrim] Allergy (Mild, Verified 01/08/24 12:09) RASH Sulfa (Sulfonamide Antibiotics) Allergy (Unknown, Verified 01/08/24 12:09) rash amoxicillin Adverse Reaction (Unknown, Verified 01/08/24 12:09) nausea and vomiting lisinopril Adverse Reaction (Unknown, Verified 01/08/24 12:09) cough Medication List - Last Reconciled 01/08/24 by Gogo Grier MD cyanocobalamin (vitamin B-12) 1,000 mcg PO DAILY estradiol 0.01%(0.1mg/gram) (Estrace) 0.25 appful vaginal 3XW fluticasone furoate-vilanterol 100-25 mcg/dose (Breo Ellipta) 2 inhalations inhalation DAILY hydrocodone-chlorpheniramine 10-8 mg/5 mL 5 mL PO Q12H PRN ibuprofen 800 mg PO Q8H PRN metoprolol succinate ER 1 tab PO DAILY sumatriptan 20 mg/actuation (Imitrex) 20 mg intranasal Q2H PRN [Vitamin D (with calcium) 1 tab PO DAILY] Tobacco use date assessed: 01/08/24 Fall risk assessment: No Falls in past year Last assessed Fall Risk: 01/08/24 Dental Screening Dental Screen Date: 01/08/24 Did you have a dental visit in the last 12 months?: Yes Did you have a dental problem in the last 6 months where you did not have access to dental care?: No Was dental information given to patient?: Patient has dentist HPI Annual PE Over due HPI Details Pt presents for PE. [facility] Medical History (Updated 01/08/24 @ 12:59 by Gogo Grier MD) Annual physical exam Hyperglycemia Hyperlipidemia Morbid obesity Atrial fibrillation Migraine Surgical History History of section History of incisional hernia repair S/P colon resection Family History Father CHF (congestive heart failure) Mother No problems noted. Son No problems noted. Son No problems noted. Social History Household Members: Other Housing: House Do you presently have visiting nurse or other home services: No Alcohol intake: never Patient Tobacco Use Status: Never used Tobacco e-Cigarette/Vaping Use: Never Used service: No Current occupational status: employed Cognitive needs: No Hearing needs: No Vision needs: Yes Questionnaire PHQ-9 Over the last 2 weeks, how often have you been bothered by any of the following problems? 1. Little interest or pleasure in doing things: not at all 2. Feeling down, depressed, or hopeless: not at all 3. Trouble falling or staying asleep, or sleeping too much: not at all 4. Feeling tired or having little energy: not at all 5. Poor appetite or overeating: not at all 6. Feeling bad about yourself - or that you are a failure or have let yourself or your family down: not at all 7. Trouble concentrating on things, such as reading the newspaper or watching television: not at all 8. Moving or speaking so slowly that other people could have noticed. Or the opposite - being so fidgety or restless that you have been moving around a lot more than usual: not at all 9. Thoughts that you would be better off or of hurting yourself in some way: not at all Total score: 0 Depression Screening Interpretation: Negative Depression Screening Done: Yes Source: Developed by Drs. González Rubi, Tuyet Cabello, Constantine Bernal and colleagues, with an educational yesica from [employer]. Thrive Questionnaire Date Thrive assessed: 01/08/24 I am a: Patient What is your living situation today?: I have a steady place to live Within the past 12 months, did the food you bought not last and you didn't have the money to get more?: Never true Within the past 12 months, did you worry whether your food would run out before you got money to buy more?: Never true Do you have trouble paying for medicines?: No Do you have trouble getting transportation to medical appointments?: No Do you have trouble paying your heating and electricity bill?: No Do you have trouble taking care of your child, family member or friend?: No Do you have trouble with day-to-day activities such as bathing, preparing meals, shopping, managing finances, etc.?: No Are you currently unemployed and looking for a job?: No Are you interested in more education?: No Please select the resources that you would like help with: None THRIVE Score: 0 AUDIT C Alcohol Use Questionnaire (AUDIT-C) 1. How often do you have a drink containing alcohol?: 2-4 times a month 2. How many drinks containing alcohol do you have on a typical day when you are drinking?: 1 or 2 3. How often do you have six or more drinks on one occasion?: Never Total Score: 2 HE-7 AMB Questionnaire HE-7 Date HE - 7 assessed: 01/08/24 Feeling nervous, anxious, or on edge: 0 = Not at all Not being able to stop or control worryin = Not at all Worrying too much about different things: 0 = Not at all Trouble relaxin = Not at all Being so restless that it is hard to sit still: 0 = Not at all Becoming easily annoyed or irritable: 0 = Not at all Feeling afraid as if something awful might happen: 0 = Not at all Total HE-7 score (0-4 normal; 5-9 mild; 10-14 moderate; 15-21 severe): 0 Source: Developed by Drs. González Rubi, Tuyet Cabello, Constantine Bernal and colleagues, with an educational yesica from [employer]. Review of Systems Const All systems reviewed & are unremarkable except as noted in HPI and below Eyes Reports no additional complaints ENT Reports no additional complaints Card Reports no additional complaints Resp Reports no additional complaints GI Reports no additional complaints Reports no additional complaints Musc Reports no additional complaints Physical exam (Primary Care) Vital Signs: Last Vital Signs Pulse 69 01/08/24 12:07 BP 134/82 01/08/24 12:07 Pulse Ox 96 01/08/24 12:07 Oxygen Delivery Method Room Air 01/08/24 12:07 Tobacco/Smoking Status: Tobacco use Status Tobacco use date assessed 01/08/24 01/08/24 12:15 Patient Tobacco Use Status Never used Tobacco 01/08/24 12:15 e-Cigarette/Vaping Use Never Used 01/08/24 12:07 PHQ-9: PHQ-9 Score PHQ-9: Total score 0 01/08/24 12:27 Depression Screening Interpretation: Negative Thrive Assessment: Date of Thrive Assessment Date Thrive assessed 01/08/24 01/08/24 12:19 Const General: no acute distress HENMT Ears: hearing grossly normal bilaterally Face and sinus: Yes normal facial exam Mouth: Normal oral and palatal mucosa present Throat: Yes posterior oropharynx normal Eyes General: appearance normal, both eyes and all related structures Neck Neck: Yes supple Resp Effort & Inspection: normal respiratory effort Auscultation: clear to auscultation bilaterally Cardio Rhythm: regular rhythm Heart sounds: S1 normal heart sound present and S2 normal heart sound present GI Inspection: Yes normal to inspection Palpation (GI): Soft to palpation Percussion: Yes normal to percussion Auscultation: normal bowel sounds Results AMB Hemoglobin A1c AMB Hemoglobin A1c 5.6 % Last Edit by OBDULIA Barreto on 01/08/24 12:2 7 Results Reviewed Results Reviewed: Laboratory Last Values Hgb A1c (Clinic) 5.6 % (4.0-6.0) 01/08/24 12:19 Assessment and Plan Assessment & Plan (1) Hyperglycemia: Code(s): R73.9 - Hyperglycemia, unspecified Plan: A1C is 5.6, ADA diet, increase exercise, discussed (2) Hyperlipidemia: Comment: refuses meds 01/2022 Code(s): E78.5 - Hyperlipidemia, unspecified Plan: cont low cholesterol diet (3) Hypertension: Code(s): I10 - Essential (primary) hypertension Plan: cont Metoprolol (4) Annual physical exam: Comment: Patient refused colonoscopy mammogram and Pap smear Code(s): Z00.00 - Encounter for general adult medical examination without abnormal findings Plan: well balanced diet, regular exercise, weight loss discussed. (5) Atrial fibrillation: Comment: f/u Dr. Mandujano, pt declined anticoagulation Code(s): I48.91 - Unspecified atrial fibrillation Plan: cont Metoprolol (6) Asthma: Code(s): J45.909 - Unspecified asthma, uncomplicated Plan: cont Breo Ellipta (7) Morbid obesity: Code(s): E66.01 - Morbid (severe) obesity due to excess calories Plan: Weight loss discussed with the patient Orders: Orders AMB Hemoglobin A1c Today Z13.9 - Encounter for screening, unspecified Comprehensive [place]. Panel Fast Today E78.5 - Hyperlipidemia, unspecified, I10 - Essential (primary) hypertension, R73.9 - Hyperglycemia, unspecified TSH reflex Free T4 Today E78.5 - Hyperlipidemia, unspecified, I10 - Essential (primary) hypertension, R73.9 - Hyperglycemia, unspecified Vitamin D 25-OH (D2 and D3) Today E78.5 - Hyperlipidemia, unspecified, I10 - Essential (primary) hypertension, R73.9 - Hyperglycemia, unspecified Complete Blood Count Auto Diff Today E78.5 - Hyperlipidemia, unspecified, I10 - Essential (primary) hypertension, R73.9 - Hyperglycemia, unspecified Lipid Panel Today E78.5 - Hyperlipidemia, unspecified, I10 - Essential (primary) hypertension, R73.9 - Hyperglycemia, unspecified UA w Microscopic Today E78.5 - Hyperlipidemia, unspecified, I10 - Essential (primary) hypertension, R73.9 - Hyperglycemia, unspecified Medications: Changed From metoprolol succinate ER 1 tab PO DAILY To metoprolol succinate ER 100 mg PO DAILY 90 tabs 0RF Refilled hydrocodone-chlorpheniramine 10-8 mg/5 mL Partial Fill upon patient request. 5 mL PO Q12H PRN 70 mL 0RF cold symptoms fluticasone furoate-vilanterol 100-25 mcg/dose (Breo Ellipta) 2 inhalations inhalation DAILY 180 ea 3RF sumatriptan 20 mg/actuation (Imitrex) administer into one nostril as a single dose; if 2nd dose needed,administer into other nostril after at least 2 hrs, NTE 2 doses (40 mg) per episode 20 mg intranasal Q2H PRN 1 ea 0RF migraine headache Discontinued estradiol 0.01%(0.1mg/gram) (Estrace) Discontinued Reason: Doctor's Order 0.25 appful vaginal 3XW 42.5 grams 3RF cyanocobalamin (vitamin B-12) Discontinued Reason: Doctor's Order 1,000 mcg PO DAILY 90 caps 1RF Coding Level of Care Code Est Pt Prev Care >65y(58058) Diagnoses Hyperglycemia R73.9 Hyperlipidemia E78.5 Hypertension I10 Annual physical exam Z00.00 Atrial fibrillation I48.91 Asthma J45.909 Morbid obesity E66.01
[2024-01-08 12:07] VITALS: BP 134/82; PULSE 69; O2SAT 96
== END 2024-01-08 13:00 | disposition home or self-care (01) ==
PROVIDERS: PCP Internal Medicine; Visit Provider Internal Medicine
DX: Z00.00 Encounter for general adult medical examination without abnormal findings (principal); I48.91 Unspecified atrial fibrillation; E66.01 Morbid (severe) obesity due to excess calories; R73.9 Hyperglycemia, unspecified; E78.5 Hyperlipidemia, unspecified; I10 Essential (primary) hypertension; J45.909 Unspecified asthma, uncomplicated
CPT/HCPCS: 83036; 99397

== ENCOUNTER 2024-01-09 10:54 | Outpatient (REF) | payer OTHER, SELFPAY ==
[2024-01-09 13:39] LABS: MANUAL DIFF FLAG NO
[2024-01-09 13:42] LABS: Basophils Absolute Auto 0.1 X10*3/uL (0.0-0.2); Basophils Percent Auto 0.9 % (0-2); Eosinophils Absolute Auto 0.5 X10*3/uL (0.0-0.4); Eosinophils Percent Auto 7.7 % (0-4); Hematocrit 44.4 % (37.0-47.0); Hemoglobin 14.5 g/dl (12.0-16.0); Imm Gran Abs Auto 0.04 X10*3/uL (0.00-0.03); Imm Gran Pct Auto 0.7 % (0.0-0.4); Lymphocytes Absolute Auto 1.4 X10*3/uL (1.2-4.9); Lymphocytes Percent Auto 23.8 % (20-40); Mean Corpuscular HGB Conc 32.7 g/dl (31.0-35.0); Mean Corpuscular Hemoglobin 31.2 pg (27.0-33.0); Mean Corpuscular Volume 95.5 fL (80.0-98.0); Mean Platelet Volume 11.7 fL (9.4-12.3); Monocytes Absolute Auto 0.4 X10*3/uL (0.1-1.2); Monocytes Percent Auto 6.7 % (2-11); Neutrophils Absolute Auto 3.5 x10*3/uL (2.0-8.3); Neutrophils Percent Auto 60.2 % (45-73); Platelet Count 234 X10*3/uL (160-400); Red Blood Count 4.65 X10*6/uL (4.20-5.50); Red Cell Distribution Width 13.7 % (11.0-16.0); White Blood Count 5.8 X10*3/uL (4.8-10.8)
[2024-01-09 13:45] LABS: Appearance Urine Cloudy; Color Urine Yellow; Glucose Urine UA Negative (Negative); Leukocyte Esterase Urine Moderate (2+) (Negative); Nitrite Urine Negative (Negative); PH 8.5 (5.0-9.0); Specific Gravity - Urine 1.015 (1.005-1.025); UMIC TRIGGER UA YES; Urine Blood Negative (Negative); Urine Ketones Negative (Negative); Urine Protein Negative (Neg-Trace)
[2024-01-09 13:48] LABS: Bacteria Urine 3+ (None Seen); Hyaline Casts Urine 0-2 /LPF (0-2); RBC Urine 0-2 /HPF (0-2); WBC Urine 21-50 /HPF (0-5)
[2024-01-09 14:10] LABS: Alanine Aminotransferase 18 U/L (0-31); Albumin Level 3.9 g/dL (3.5-5.0); Alkaline Phosphatase 93 U/L (39-117); Anion Gap 14 (12-20); Aspartate Amino Transferase 18 U/L (5-31); Bilirubin Total 0.7 mg/dL (0.0-1.0); Blood Urea Nitrogen 18 mg/dL (9-16); Carbon Dioxide 29 mmol/L (22-29); Chloride 105 mmol/L (96-108); Cholesterol 203 mg/dL (<200); Estimated Glomerular Filt Rate > 60; Glucose Fasting 92 mg/dL (60-99); HDL Cholesterol 48 mg/dL (>40); LDL Cholesterol Calculated 130 mg/dL (<100); Potassium 4.2 mmol/L (3.3-5.1); Sodium 144 mmol/L (135-145); Triglycerides 129 mg/dL (<150)
[2024-01-09 14:24] LABS: TSH reflex Free T4 1.43 uIU/mL (0.32-4.0)
[2024-01-14 15:34] LABS: Vitamin D 25-OH, D2 <4 ng/mL; Vitamin D 25-OH, D3 30 ng/mL; Vitamin D 25-OH, Total 30 ng/mL (30-100)
== END 2024-01-09 10:55 | disposition home or self-care (01) ==
LOC: HO.HMGCLDS 10:54
PROVIDERS: PCP Internal Medicine; Visit Provider Internal Medicine
DX: R73.9 Hyperglycemia, unspecified (principal); E78.5 Hyperlipidemia, unspecified; I10 Essential (primary) hypertension
CPT/HCPCS: 36415; 80053; 80061; 81001; 82306; 84443; 85025

== ENCOUNTER 2024-03-15 14:31 | Outpatient (REF) | payer BC, SELFPAY ==
[2024-03-15 16:04] LABS: Appearance Urine Clear; Color Urine Yellow; Glucose Urine UA Negative (Negative); Leukocyte Esterase Urine Small (1+) (Negative); Nitrite Urine Negative (Negative); PH 5.5 (5.0-9.0); UMIC TRIGGER UA YES; Urine Blood Negative (Negative); Urine Ketones Negative (Negative); Urine Protein Negative (Neg-Trace)
[2024-03-15 16:11] LABS: Bacteria Urine 3+ (None Seen); Hyaline Casts Urine 0-2 /LPF (0-2); RBC Urine 0-2 /HPF (0-2)
== END 2024-03-15 14:32 | disposition home or self-care (01) ==
LOC: HO.HMGCLDS 14:31
PROVIDERS: PCP Internal Medicine; Visit Provider Internal Medicine
DX: R30.0 Dysuria (principal)
CPT/HCPCS: 81001; 87086

== ENCOUNTER 2024-03-23 12:34 | Outpatient (AMB) | payer BC, SELFPAY ==
[2024-03-23 12:36] VITALS: BP 126/80; PULSE 64; O2SAT 96
--- NOTE | 2024-03-23 12:36 | MHC.PC.OV ---
Vital Signs 03/23/24 12:36 Height 5 ft 4 in BMI Reason not done Patient refused/unable BP 126/80 Blood Pressure Location Lt brachial Position Sitting Pulse 64 Pulse Source Pulse Oximeter Pulse Oximetry (%) 96 Oxygen Delivery Method Room Air Intake Visit Reasons: Talk to PCP Allergies sulfamethoxazole [From Bactrim] Allergy (Mild, Verified 03/23/24 12:47) RASH trimethoprim [From Bactrim] Allergy (Mild, Verified 03/23/24 12:47) RASH Sulfa (Sulfonamide Antibiotics) Allergy (Unknown, Verified 03/23/24 12:47) rash amoxicillin Adverse Reaction (Unknown, Verified 03/23/24 12:47) nausea and vomiting lisinopril Adverse Reaction (Unknown, Verified 03/23/24 12:47) cough Medication List - Last Reconciled 03/23/24 by Gogo Grier MD fluticasone furoate-vilanterol 100-25 mcg/dose (Breo Ellipta) 2 inhalations inhalation DAILY hydrocodone-chlorpheniramine 10-8 mg/5 mL 5 mL PO Q12H PRN ibuprofen 800 mg PO Q8H PRN metoprolol succinate ER 100 mg PO DAILY sumatriptan 20 mg/actuation (Imitrex) 20 mg intranasal Q2H PRN [Vitamin D (with calcium) 1 tab PO DAILY] Tobacco use date assessed: 03/23/24 Dental Screening Dental Screen Date: 01/08/24 HPI Talk to PCP HPI Details Pt presents c/o BLANCHARD after walking up stairs for 10 years getting worse over the last year. Pt denies palp, exertional CP, PND, orthopnea. Pt f/u with Dr. Mandujano for hx of A fib and has not episodes for a few years. Pt has been using Breo with good relief for a few years but her insurance doesn't cover it. Pt reports postnasal drip but no coughing or wheezing. [facility] Medical History Annual physical exam Hyperglycemia Hyperlipidemia Morbid obesity Atrial fibrillation Migraine Surgical History History of section History of incisional hernia repair S/P colon resection Family History Father CHF (congestive heart failure) Mother No problems noted. Son No problems noted. Son No problems noted. Social History Household Members: Other Housing: House Do you presently have visiting nurse or other home services: No Alcohol intake: never Patient Tobacco Use Status: Never used Tobacco e-Cigarette/Vaping Use: Never Used service: No Current occupational status: employed Cognitive needs: No Hearing needs: No Vision needs: Yes Questionnaire Thrive Questionnaire Date Thrive assessed: 01/08/24 HE-7 AMB Questionnaire HE-7 Date HE - 7 assessed: 01/08/24 Source: Developed by Drs. González Rubi, Tuyet Cabello, Constantine Bernal and colleagues, with an educational yesica from [employer]. Review of Systems Const All systems reviewed & are unremarkable except as noted in HPI and below Eyes Reports no additional complaints ENT Reports no additional complaints Card Reports no additional complaints Resp Reports no additional complaints GI Reports no additional complaints Reports no additional complaints Physical exam (Primary Care) Vital Signs: Last Vital Signs Pulse 64 03/23/24 12:36 BP 126/80 03/23/24 12:36 Pulse Ox 96 03/23/24 12:36 Oxygen Delivery Method Room Air 03/23/24 12:36 Tobacco/Smoking Status: Tobacco use Status Tobacco use date assessed 03/23/24 03/23/24 12:49 Patient Tobacco Use Status Never used Tobacco 03/23/24 12:37 e-Cigarette/Vaping Use Never Used 03/23/24 12:37 Thrive Assessment: Date of Thrive Assessment Date Thrive assessed 01/08/24 03/23/24 12:37 Const General: no acute distress HENMT Head: Yes normal to inspection Face and sinus: Yes normal facial exam Mouth: Normal oral and palatal mucosa present Throat: Yes posterior oropharynx normal Neck Neck: Yes supple Resp Effort & Inspection: normal respiratory effort Auscultation: clear to auscultation bilaterally Cardio Rhythm: regular rhythm Heart sounds: S1 normal heart sound present and S2 normal heart sound present Results AMB Hemoglobin A1c AMB Hemoglobin A1c 5.6 % Last Edit by OBDULIA Barreto on 03/23/24 13:21 Results Reviewed Results Reviewed: Laboratory Last Values Hgb A1c (Clinic) 5.6 % (4.0-6.0) 03/23/24 12:59 Assessment and Plan Assessment & Plan (1) BLANCHARD (dyspnea on exertion): Code(s): R06.09 - Other forms of dyspnea Plan: For chronic dyspnea on exertion pulmonary function test echocardiogram Holter monitor to rule out paroxysmal AFib will be obtained. (2) Asthma: Comment: Patient's insurance does not cover Breo inhaler Code(s): J45.909 - Unspecified asthma, uncomplicated Plan: Flovent 100 mcg 2 puffs twice a day will be tried instead of Breo (3) Atrial fibrillation: Comment: f/u Dr. Mandujano, pt declined anticoagulation Code(s): I48.91 - Unspecified atrial fibrillation Plan: Controlled on metoprolol follow-up with Cardiology, obtain Holter monitor Orders: Orders CA echo transthoracic complete Today I48.91 - Unspecified atrial fibrillation, R06.09 - Other forms of dyspnea PFT pulmonary function test Today J45.909 - Unspecified asthma, uncomplicated, R06.09 - Other forms of dyspnea AMB Hemoglobin A1c Today Z13.9 - Encounter for screening, unspecified XR chest 1V Today R06.09 - Other forms of dyspnea ECG holter monitor 48 hour Today I48.91 - Unspecified atrial fibrillation, R06.09 - Other forms of dyspnea Medications: New fluticasone propionate 100 mcg/actuation 2 inhalations inhalation BID 60 ea 0RF Discontinued hydrocodone-chlorpheniramine 10-8 mg/5 mL Partial Fill upon patient request. Discontinued Reason: Doctor's Order 5 mL PO Q12H PRN 70 mL 0RF cold symptoms Coding Level of Care Code Est Pt Level 4 (31231) Diagnoses BLANCHARD (dyspnea on exertion) R06.09 Asthma J45.909 Atrial fibrillation I48.91
== END 2024-03-23 14:36 | disposition home or self-care (01) ==
PROVIDERS: PCP Internal Medicine; Visit Provider Internal Medicine
DX: R06.09 Other forms of dyspnea (principal); J45.909 Unspecified asthma, uncomplicated; I48.91 Unspecified atrial fibrillation; R73.9 Hyperglycemia, unspecified
CPT/HCPCS: 83036; 99214

== ENCOUNTER 2024-03-23 13:54 | Outpatient (REF) | payer BC, SELFPAY ==
--- NOTE | ~2024-03-23 | XR_ITS ---
EXAMINATION: XR CHEST CLINICAL INFORMATION: Dyspnea COMPARISON: Chest radiograph 10/23/2022 TECHNIQUE: Frontal view of the chest was obtained. FINDINGS: The lungs are adequately expanded. No focal consolidation. No pleural effusions, overt edema or pneumothorax. The cardiac silhouette is mildly enlarged and unchanged. Tortuous thoracic aorta. Hiatal hernia. Surgical clips in the left abdomen. XR/XR chest 1V IMPRESSION: No focal consolidation. Stable mildly enlarged cardiac silhouette. Hiatal hernia. Electronically signed by: Herberth Grant MD 04/22/2024 08:46 AM EDT
== END 2024-03-23 13:55 | disposition home or self-care (01) ==
LOC: HO.HMGCX 13:54
PROVIDERS: PCP Internal Medicine; Visit Provider Internal Medicine
DX: R06.09 Other forms of dyspnea (principal)
CPT/HCPCS: 71045

== ENCOUNTER → 2024-05-03 13:15 | Outpatient (BNVA) | payer OTHER, SELFPAY | PROVIDERS: PCP Internal Medicine; Visit Provider Physician Assistant Medical | DX: S00.83XA Contusion of other part of head, initial encounter (principal); S63.698A Other sprain of other finger, initial encounter; S63.612A Unspecified sprain of right middle finger, initial encounter; W01.0XXA Fall on same level from slipping, tripping and stumbling without subsequent striking against object, initial encounter | CPT/HCPCS: 73110; 73130; 99203 ==

== ENCOUNTER → 2024-05-04 13:51 | Outpatient (BNVA) | payer OTHER, SELFPAY | PROVIDERS: PCP Internal Medicine; Visit Provider Physician Assistant Medical | DX: S43.81XA Sprain of other specified parts of right shoulder girdle, initial encounter (principal); S63.698A Other sprain of other finger, initial encounter; S63.612A Unspecified sprain of right middle finger, initial encounter; S00.83XA Contusion of other part of head, initial encounter; W18.30XA Fall on same level, unspecified, initial encounter | CPT/HCPCS: 99213 ==

== ENCOUNTER 2024-05-04 15:39 | Emergency (ER) | payer BC, SELFPAY ==
--- NOTE | ~2024-05-04 | CT_ITS ---
CT HEAD WITHOUT IV CONTRAST CT MAXILLOFACIAL WITHOUT IV CONTRAST INDICATION: Fall COMPARISON: None TECHNIQUE: Multidetector CT acquisitions of the head, maxillofacial region, and cervical spine were obtained without IV contrast. Multiplanar reformats were acquired and utilized for image interpretation. DLP: 578 and 410 mGy-cm FINDINGS: HEAD: There is no intracranial hemorrhage or extra-axial fluid collection. The ventricles are unremarkable without hydrocephalus. No midline shift or mass effect. Lewis to white matter differentiation is diffusely maintained without evidence of an evolved acute territorial infarct. The basilar cisterns are preserved. Subcortical and periventricular white matter hypoattenuation is suggestive of [] small vessel ischemic disease. No soft tissue or osseous abnormality. The mastoid air cells and paranasal sinuses are well-aerated. MAXILLOFACIAL: The mandible, maxilla, pterygoid plates, nasal bones, zygomatic arches, paranasal sinus bower, and bony orbits are intact. No acute osseous abnormality within the maxillofacial region. The paranasal sinuses and mastoid air cells remain well-aerated. The globes and extra-ocular musculature is intact. No significant soft tissue findings. The visualized lung apices are clear. CT/CT facial bones wo IV con IMPRESSION: 1. No acute intracranial abnormality. 2. No acute osseous abnormality within the maxillofacial region. Electronically signed by: Maverick Belcher MD 05/04/2024 08:17 PM EDT
--- NOTE | ~2024-05-04 | CT_ITS ---
CT HEAD WITHOUT IV CONTRAST CT MAXILLOFACIAL WITHOUT IV CONTRAST INDICATION: Fall COMPARISON: None TECHNIQUE: Multidetector CT acquisitions of the head, maxillofacial region, and cervical spine were obtained without IV contrast. Multiplanar reformats were acquired and utilized for image interpretation. DLP: 578 and 410 mGy-cm FINDINGS: HEAD: There is no intracranial hemorrhage or extra-axial fluid collection. The ventricles are unremarkable without hydrocephalus. No midline shift or mass effect. Lewis to white matter differentiation is diffusely maintained without evidence of an evolved acute territorial infarct. The basilar cisterns are preserved. Subcortical and periventricular white matter hypoattenuation is suggestive of [] small vessel ischemic disease. No soft tissue or osseous abnormality. The mastoid air cells and paranasal sinuses are well-aerated. MAXILLOFACIAL: The mandible, maxilla, pterygoid plates, nasal bones, zygomatic arches, paranasal sinus bower, and bony orbits are intact. No acute osseous abnormality within the maxillofacial region. The paranasal sinuses and mastoid air cells remain well-aerated. The globes and extra-ocular musculature is intact. No significant soft tissue findings. The visualized lung apices are clear. CT/CT head/brain wo IV con IMPRESSION: 1. No acute intracranial abnormality. 2. No acute osseous abnormality within the maxillofacial region. Electronically signed by: Maverick Belcher MD 05/04/2024 08:17 PM EDT
--- NOTE | ~2024-05-04 | XR_ITS ---
EXAMINATION: XR KNEE, RIGHT CLINICAL INFORMATION: Fall, swelling COMPARISON: None available. TECHNIQUE: Four views of the right knee. FINDINGS: Severe medial compartment arthritis. Mild lateral compartment arthritis. Suspected arthritis in the patellofemoral compartment, as seen on the lateral view. There is anterior soft tissue swelling overlying the patella and the patellar tendon. No acute fracture is identified. Trace suprapatellar joint fluid. XR/XR knee RT 4V IMPRESSION: Prominent anterior soft tissue swelling overlying the patella and the patellar tendon. This could represent a soft tissue hematoma. No radiographically evident acute fracture seen. Trace joint fluid. 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 Electronically signed by: Hector Herron MD 05/04/2024 06:11 PM EDT
[2024-05-04 16:04] VITALS: BP 0/0; PULSE 73; RESP 18; TEMP 36.8; O2SAT 98; BMI 34.3
[2024-05-04 16:10] VITALS: BP 132/88; PULSE 82; O2SAT 98
--- NOTE | 2024-05-04 16:46 | PC.NURSE ---
pt arrives to dept s/p fall from work connection. on arrival pt refusing to have BP taken. minimally contributory when providing details of fall- per EMS pt refused spinal immobilization. PA aware
--- NOTE | 2024-05-04 16:47 | PC.NURSE ---
per Phu in CT scan pt refusing imaging until she gets some crackers explained importance of being NPO during eval. pt insists on eating- PA aware. crackers provided
--- NOTE | 2024-05-04 17:36 | PC.NURSE ---
PT aware that CT scan would come pick her up soon, pt said she's not waiting longer than [address] scan results I'll just go home and they can call me with my results. pt education provided on how the results work patient verbalizes understanding.
--- NOTE | 2024-05-04 18:18 | PC.NURSE ---
CT notified pt is ready for scan- pt speaking in clear, full sentences.
--- NOTE | 2024-05-04 18:30 | ED_ITS ---
HPI - General Adult General Chief complaint: Head Injury Stated complaint: witnessed fall,-loc, + headstrike Time Seen by Provider: 05/04/24 15:50 Source: patient, RN notes reviewed and old records reviewed History of Present Illness ED Provider: Shraddha Mcallister PA-C HPI narrative: 78-year-old female with a past medical history of migraines, HLD, obesity, AFib not on anticoagulation, presenting to the ED complaining of facial injury/nasal pain and right knee pain s/p mechanical trip and fall while leaving work connection [employer]. Patient states she tripped on uneven sidewalk, denies symptoms prior to fall, denies LOC. denies vision change/loss, neck/back pain, CP/SOB Related Data Home Medications ?Medication ?Instructions ?Recorded ?Confirmed Vitamin D (with calcium) 1 tab PO DAILY 08/03/20 03/23/24 Previous Rx's ?Medication ?Instructions ?Recorded ibuprofen 800 mg tablet 800 mg PO Q8H PRN pain #30 tabs 01/01/23 metoprolol succinate 100 mg 100 mg PO DAILY #90 tabs 01/08/24 tablet,extended release 24 hr sumatriptan 20 mg/actuation nasal 20 mg intranasal Q2H PRN migraine 01/08/24 spray (Imitrex) headache #1 ea fluticasone furoate 100 2 inh inhalation DAILY #180 ea 01/28/24 mcg-vilanterol 25 mcg/dose inhalation powder (Breo Ellipta) fluticasone propionate 100 2 inh inhalation .qd #60 ea 03/28/24 mcg/actuation blister powder for inhalation Allergies Allergy/AdvReac Type Severity Reaction Status Date / Time sulfamethoxazole Allergy Mild RASH Verified 05/04/24 16:09 [From Bactrim] trimethoprim [From Bactrim] Allergy Mild RASH Verified 05/04/24 16:09 Sulfa (Sulfonamide Allergy Unknown rash Verified 05/04/24 16:09 Antibiotics) amoxicillin AdvReac Unknown nausea and Verified 05/04/24 16:09 vomiting lisinopril AdvReac Unknown cough Verified 05/04/24 16:09 Review of Systems Review of Systems: Yes all other systems are reviewed and are negative Constitutional: Constitutional: Reports as per HPI Neurologic: Denies Abnormal speech present PMFSH Past Medical History Attestation statement: The following information was validated with the patient. Source: old records reviewed Medical History Annual physical exam Hyperglycemia Hyperlipidemia Morbid obesity Atrial fibrillation Migraine Surgical History History of section History of incisional hernia repair S/P colon resection Family History Family History Father CHF (congestive heart failure) Mother No problems noted. Son No problems noted. Son No problems noted. Social History Social History Household Members: Other Housing: House Do you presently have visiting nurse or other home services: No Alcohol intake: never Patient Tobacco Use Status: Never used Tobacco e-Cigarette/Vaping Use: Never Used Advance Directives: No Advance Directives Information Provided: No Do you have a plan to hurt others: No Plan service: No Current occupational status: employed Cognitive needs: No Hearing needs: No Vision needs: Yes Physical Exam ED Vital Signs: Vital Signs - 24 hr 05/04/24 16:04 05/04/24 20:17 Temperature 98.2 F 97.5 F Pulse Rate 73 59 Respiratory Rate 18 20 Blood Pressure 0/0 L 202/92 H Pulse Oximetry 98 97 Oxygen Delivery Method Room Air Room Air BMI result Body Mass Index 34.3 Const General: cooperative, healthy appearing and no acute distress Orientation/consciousness: patient oriented x3 Limitations: no limitations HENMT Other: Healing ecchymosis noted to right forehead (old per patient) + nasal swelling and abrasion. No active epistaxis. No septal hematoma. Tender to palpation Head: Yes normal to inspection and Yes atraumatic Ears: hearing grossly normal bilaterally General nose exam: Normal external nose present Face and sinus: Yes normal facial exam Mouth: Normal oral and palatal mucosa present and no drooling Throat: Yes posterior oropharynx normal Eyes General: appearance normal, both eyes and all related structures Pupils: Equal, round and reactive pupils present EOM: EOMs intact bilaterally Neck Neck: Yes normal visual inspection and Yes no meningeal signs Resp Effort & Inspection: normal respiratory effort and no respiratory distress Auscultation: clear to auscultation bilaterally Cardio Rate: regular rate Heart sounds: S1 normal heart sound present and S2 normal heart sound present Back/Spine/Pelvis Other: No midline cervical/thoracic/lumbar spinous tenderness/step-off or deformity Skin Rashes: no rashes Neuro General: patient oriented x3, gait normal, tone normal, moves all extremities, no meningeal signs, no focal motor deficits and CN's II-XI intact bilaterally Cranial nerves: Yes CN's II-XII intact bilaterally, Yes Equal, round and reactive pupils present and Yes Bilaterally intact EOM present Cognition (Neuro): normal cognition Speech: No Abnormal speech present Gait exam (Neuro): Normal gait present Motor exam (neuro): 5/5 motor strength present throughout Extrem Other: Right knee with appreciable hematoma, swelling and ecchymosis. Tender to palpation. ROM intact with discomfort. Neurovascular intact distally Finger splint and velcro splint intact to LUE (from old injury per patient) Course Course Course Narrative: XR knee RT 4V IMPRESSION: Prominent anterior soft tissue swelling overlying the patella and the patellar tendon. This could represent a soft tissue hematoma. No radiographically evident acute fracture seen. Trace joint fluid. 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 > Pepe wrap applied -1900--ED care transferred to [facility] pending CT and dispo per results Reevaluation(s) Reevaluation #1: CT/CT facial bones wo IV con IMPRESSION: 1. No acute intracranial abnormality. 2. No acute osseous abnormality within the maxillofacial region. Findings were reviewed with patient, provided with return precautions outpatient follow-up with primary care doctor. Time: 20:47 Medical Decision Making Medical Decision Making MDM Narrative: 78-year-old female with a past medical history of migraines, HLD, obesity, AFib not on anticoagulation, presenting to the ED complaining of facial injury/nasal pain and right knee pain s/p mechanical trip and fall while leaving work connection [employer]. On exam vital signs stable, NAD, nontoxic appearing. Please refer to physical exam. Concern for ICH vs fractures and hematoma. Low suspicion for ACS Patient with evidence of old injury however will not elaborate/tell details to why she is wearing splint to LUE or previous forehead injury Plan: X-ray, CT Please refer to course for remaining clinical decision making, interpretation of labs/imaging results, and discussions with consultants and/or family members. Differential Diagnosis Differential Diagnoses: The differential diagnosis associated with the presentation includes As above Admission/Observation Consideration of admission/observation: Escalation of care including admission/observation considered Independent Interpretation I performed an independent interpretation of an: Plain X-Ray and CT Scan Radiology Impression Discussion of test interpretation with radiology: I have reviewed the radiologist's reading. External Record Review External record reviewed: Inpatient record, Office record, Outpatient record, Prior outpatient labs, Prior outpatient radiology, Primary care record and Outside ED record Tests considered The following testing was considered but not selected: As above Chronic Conditions Patient?s care impacted by: Other Discharge Plan Discharge Clinical Impression: Traumatic hematoma of right knee, Facial injury, Fall Patient Disposition: Home, Self-Care Additional Instructions: Ice and elevate your knee Your x-ray shows soft tissue swelling over the patella and patellar tendon, suggestive of hematoma. Please wear Pepe wrap. CT scan of your head and facial bones does not show evidence of fracture or bleeding. Please follow-up closely with your primary care doctor. Return to emergency department any new or worsening symptoms or concerns. Prescriptions: No Action fluticasone furoate-vilanterol [Breo Ellipta] 100-25 mcg/dose blister with device 2 inh inhalation DAILY Qty: 180 3RF fluticasone propionate 100 mcg/actuation blister with device 2 inh inhalation .qd Qty: 60 0RF Vitamin D (with calcium) 1 tab PO DAILY ibuprofen 800 mg tablet 800 mg PO Q8H PRN (Reason: pain) Qty: 30 0RF metoprolol succinate 100 mg tablet extended release 24 hr 100 mg PO DAILY Qty: 90 0RF sumatriptan [Imitrex] 20 mg/actuation spray,non-aerosol 20 mg intranasal Q2H PRN (Reason: migraine headache) Qty: 1 0RF Rx Instructions: administer into one nostril as a single dose; if 2nd dose needed,administer into other nostril after at least 2 hrs, NTE 2 doses (40 mg) per episode Referrals: [facility] [place] Group] [facility] [Outside] Gogo Grier MD [Primary Care Provider] - Khris Childs [Physician] - Print Language: Spanish
[2024-05-04 20:17] VITALS: BP 202/92; PULSE 59; RESP 20; TEMP 36.4; O2SAT 97
[2024-05-04 21:05] VITALS: BP 202/92; PULSE 59; RESP 20; TEMP 36.4; O2SAT 97
== END 2024-05-04 21:06 | disposition home or self-care (01) ==
PROVIDERS: Emergency Provider Emergency Medicine; PCP Internal Medicine
DX: S09.93XA Unspecified injury of face, initial encounter (principal); S80.01XA Contusion of right knee, initial encounter; W01.0XXA Fall on same level from slipping, tripping and stumbling without subsequent striking against object, initial encounter; Y92.480 Sidewalk as the place of occurrence of the external cause; Y93.89 Activity, other specified; Y99.9 Unspecified external cause status
CPT/HCPCS: 70450; 70486; 73564; 99284

== ENCOUNTER → 2024-05-10 15:45 | Outpatient (BNVA) | payer OTHER, SELFPAY | PROVIDERS: PCP Internal Medicine; Visit Provider Physician Assistant Medical | DX: S00.83XA Contusion of other part of head, initial encounter (principal); S63.612A Unspecified sprain of right middle finger, initial encounter; S63.698A Other sprain of other finger, initial encounter; W01.0XXA Fall on same level from slipping, tripping and stumbling without subsequent striking against object, initial encounter | CPT/HCPCS: 99213 ==

== ENCOUNTER 2024-05-11 08:33 | Outpatient (AMB) | payer BC, SELFPAY ==
[2024-05-11 08:34] VITALS: BP 132/86; PULSE 67; O2SAT 99
--- NOTE | 2024-05-11 08:34 | MHC.PC.OV ---
Vital Signs 05/11/24 08:34 Height 5 ft 4 in BMI Reason not done Patient refused/unable BP 132/86 Blood Pressure Location Rt brachial Position Sitting Pulse 67 Pulse Source Pulse Oximeter Pulse Oximetry (%) 99 Oxygen Delivery Method Room Air Intake Visit Reasons: Follow up Intake Note: Pt is here today for a follow up visit. Pt states that she feel twice in a week.Pt states that she was in the hospital. Allergies sulfamethoxazole [From Bactrim] Allergy (Mild, Verified 05/11/24 08:35) RASH trimethoprim [From Bactrim] Allergy (Mild, Verified 05/11/24 08:35) RASH Sulfa (Sulfonamide Antibiotics) Allergy (Unknown, Verified 05/11/24 08:35) rash amoxicillin Adverse Reaction (Unknown, Verified 05/11/24 08:35) nausea and vomiting lisinopril Adverse Reaction (Unknown, Verified 05/11/24 08:35) cough Medication List - Last Reconciled 05/11/24 by Gogo Grier MD fluticasone furoate-vilanterol 100-25 mcg/dose (Breo Ellipta) 2 inhalations inhalation DAILY fluticasone propionate 100 mcg/actuation 2 inhalations inhalation .qd ibuprofen 800 mg PO Q8H PRN metoprolol succinate ER 100 mg PO DAILY sumatriptan 20 mg/actuation (Imitrex) 20 mg intranasal Q2H PRN [Vitamin D (with calcium) 1 tab PO DAILY] Tobacco use date assessed: 05/11/24 Fall risk assessment: 2 + Falls in past year Last assessed Fall Risk: 05/11/24 Dental Screening Dental Screen Date: 01/08/24 HPI Follow up HPI Details Patient presents for the follow-up visit of mechanical fall and right knee and face injury. X-rays were negative. Patient complains of persistent stiffness and pain in her right knee when walking. Hypertension and paroxysmal AFib are stable on metoprolol. patient denies head trauma loss of consciousness chest pain or palpitations [facility] Medical History Annual physical exam Hyperglycemia Hyperlipidemia Morbid obesity Atrial fibrillation Migraine Surgical History History of section History of incisional hernia repair S/P colon resection Family History Father CHF (congestive heart failure) Mother No problems noted. Son No problems noted. Son No problems noted. Social History Household Members: Other Housing: House Do you presently have visiting nurse or other home services: No Alcohol intake: never Patient Tobacco Use Status: Never used Tobacco e-Cigarette/Vaping Use: Never Used service: No Current occupational status: employed Cognitive needs: No Hearing needs: No Vision needs: Yes Questionnaire Thrive Questionnaire Date Thrive assessed: 05/08/24 I am a: Patient What is your living situation today?: I choose not to answer this question Within the past 12 months, did the food you bought not last and you didn't have the money to get more?: I choose not to answer this question Within the past 12 months, did you worry whether your food would run out before you got money to buy more?: I choose not to answer this question Do you have trouble paying for medicines?: I choose not to answer this question Do you have trouble getting transportation to medical appointments?: I choose not to answer this question Do you have trouble paying your heating and electricity bill?: I choose not to answer this question Do you have trouble taking care of your child, family member or friend?: I choose not to answer this question Do you have trouble with day-to-day activities such as bathing, preparing meals, shopping, managing finances, etc.?: I choose not to answer this question Are you interested in more education?: No Please select the resources that you would like help with: None THRIVE Score: 0 HE-7 AMB Questionnaire HE-7 Date HE - 7 assessed: 01/08/24 Source: Developed by Drs. González Rubi, Tuyet Cabello, Constantine Bernal and colleagues, with an educational yesica from [employer]. Review of Systems Const All systems reviewed & are unremarkable except as noted in HPI and below ENT Reports no additional complaints Card Reports no additional complaints Resp Reports no additional complaints GI Reports no additional complaints Reports no additional complaints Physical exam (Primary Care) Vital Signs: Last Vital Signs Pulse 67 05/11/24 08:34 BP 132/86 05/11/24 08:34 Pulse Ox 99 05/11/24 08:34 Oxygen Delivery Method Room Air 05/11/24 08:34 Tobacco/Smoking Status: Tobacco use Status Tobacco use date assessed 05/11/24 05/11/24 08:40 Patient Tobacco Use Status Never used Tobacco 05/11/24 08:40 e-Cigarette/Vaping Use Never Used 05/11/24 08:40 Thrive Assessment: Date of Thrive Assessment Date Thrive assessed 05/08/24 05/11/24 08:40 Const General: no acute distress HENMT Other: Periorbital ecchymosis bilaterally Resp Effort & Inspection: normal respiratory effort Auscultation: clear to auscultation bilaterally Cardio Rhythm: regular rhythm Heart sounds: S1 normal heart sound present and S2 normal heart sound present GI Inspection: Yes normal to inspection Palpation (GI): Soft to palpation Percussion: Yes normal to percussion Auscultation: normal bowel sounds Extrem Other: There is subcutaneous hematoma and right knee swelling decreased range of motion and tenderness Assessment and Plan Assessment & Plan (1) Right knee injury: Code(s): S89.91XA - Unspecified injury of right lower leg, initial encounter Plan: Supportive care discussed with the patient. She will be referred to physical therapy (2) Morbid obesity: Code(s): E66.01 - Morbid (severe) obesity due to excess calories Plan: Weight loss discussed with the patient (3) Atrial fibrillation: Comment: f/u Dr. Mandujano, pt declined anticoagulation Code(s): I48.91 - Unspecified atrial fibrillation Plan: Continue metoprolol (4) Asthma: Comment: Patient's insurance does not cover Breo inhaler Code(s): J45.909 - Unspecified asthma, uncomplicated Plan: Continue Breo (5) Hypertension: Code(s): I10 - Essential (primary) hypertension Plan: Continue metoprolol Orders: Orders PT Evaluation and Treatment Today S89.91XA - Unspecified injury of right lower leg, initial encounter Coding Level of Care Code Est Pt Level 4 (66432) Diagnoses Right knee injury S89.91XA Morbid obesity E66.01 Atrial fibrillation I48.91 Asthma J45.909 Hypertension I10
== END 2024-05-11 09:14 | disposition home or self-care (01) ==
PROVIDERS: PCP Internal Medicine; Visit Provider Internal Medicine
DX: S89.91XA Unspecified injury of right lower leg, initial encounter (principal); E66.01 Morbid (severe) obesity due to excess calories; I48.91 Unspecified atrial fibrillation; J45.909 Unspecified asthma, uncomplicated; I10 Essential (primary) hypertension

== ENCOUNTER 2024-07-28 09:45 | Outpatient (AMB) | payer BC, SELFPAY ==
--- OUTSIDE RECORDS SUMMARY | 2024-07-28 09:48 | XMS_ITS | Patient Health Record ---
Author Organization [facility] [place] Address [address] [place] [address] Care Team Providers Care Sound Printer Name Role Phone Gogo Grier MD Primary Care Provider Shahla Burkett Unavailable [phone] Allergies Allergen (clinical drug ingredient) Drug/Non Drug Allergy documented on EMR Reaction Allergy Type Onset Date Status sulfamethoxazole / trimethoprim Bactrim hives Drug Allergy Active Reason For Referral No Information Medications Medication SIG (Take, Route, Frequency, Duration) Notes Start Date End Date Status Breo Ellipta 100-25 MCG/INH Inhalation for 90 Active Metoprolol Succinate 100 MG 1 capsule Or ally Once a day for 30 day(s) Active Excedrin Extra Strength Active Imitrex 25 MG 1 tablet as needed Orally Twice a day PRN Active Ventolin HFA 108 (90 Base) MCG/ACT Inhalation for 30 Not-Taking methylPREDNISolone 4 MG Oral for 6 Not-Taking Azithromycin 250 MG Oral for 5 Not-Taking predniSONE 50 MG Oral for 5 No t-Taking Voltaren 1 % Transdermal for 7 Not-Taking ZyrTEC Allergy 10 MG 1 capsule Orally Once a day for 30 day(s) Active Losartan Potassium 50 MG Oral for 90 Not-Taking Immunizations Vaccine Route Administration Date Status Comme nts COVID-19 Vasyl & Vasyl/Ramu Unknown 11/14/2020 Administered First Dose: 10/16 Social History Tobacco Use: Social History Observation Description Date Details (start date - stop date) Former Smoker NA - NA Tobacco Use/Smoking Question Answer Notes Are you a: former smoker Additional Findings: Tobacco Non-User Cu rrent non-smoker,Ex-cigarette smoker amount unknown Alcohol Screen Question Answer Notes Did you have a drink contain ing alcohol in the past year? Yes How often did you have a dri nk containing alcohol in the past year? Monthly or less (1 point) Points 1 Interpretation Negative Tobacco use other than smoking: Question Answer Notes Are you an other tobacco user? No Problems Problem Type SNOMED Code ICD Code Onset Dates Problem Status W/U Status Risk Notes Problem Plantar wart (08703926) Plantar wart (B07.0) Active confirmed Problem [id number] Hammer toe of left foot (M20.42) Active confirmed Vital Signs Height 5 ft 5 in in 09/25/2023 Weight 200 lbs 09/25/2023 BMI 33.28 kg/m2 09/25/2023 Encounters Encounter Location Date Provider Diagnosis [facility] [place] [address] 09/25/2023 Shahla Guevara Right foot pain M79.671 ; Plantar wart B07.0 and Left foot pain M79.672 Assessments Encounter Date Diagnosis (ICD Code) Assessment Notes Treatment Notes Treatment Clinical Notes Section Notes 09/25/2023 Right foot pain (ICD-10 - M79.671) 09/25/2023 Plantar wart (ICD-10 - B07.0) 09/25/2023 Left foot pain (ICD-10 - M79.672) Plan Of Treatment Pending Test Test Name Order Date X ray : Foot, left 3V 03/31/2018 [id number] Plate 03/31/2018 Insurance Providers Payer Name Payer Address Payer Phone Subscriber Number Group Number Insured Name Patient Relationship to Insured Coverage Start Date Coverage End Date [facility] [address] [place] [id number] Marija Tompkins Self - patient is the insured Medical (General) History Medical History History ICD Code Arthritis asthma Back,Hip,and Knee pain Headaches/Migraines High blood pressure Sciatica Vascular phlebitis (clots) Surgical History Surgery Date(Month/Year) Hospitalization History Reason Date(Month/Year) [facility] Afib 04/2018
--- OUTSIDE RECORDS SUMMARY | 2024-07-28 09:48 | XMS_ITS | Continuity of Care Document ---
Author Organization [facility] Address [address] [place] [address] Phone Care Team Providers Care Test Engineering Technician Name Role Phone Ye SCOTT FACS RVT [...] E&M Established 15 Mins [facility], [address], [place], [id number], [place] tel:[phone] CVR - [facility] Chronic venous htn w oth comp of bilateral low extrm 3 Ye SCOTT FACS Scot Thurston. [address], [address], [place], [address], [place]. tel:[phone] Referring Provider: Gogo Grier MD S, [address] [place] [address], [place], [address]. tel:[phone] Office/Outpt E&M Established 15 Mins [facility], [address] [place] [address] [address] Jeffrey [address], [id number], [place] tel:[phone] CVR - [facility] Chronic venous htn w oth comp of bilateral low extrm 3 Ye SCOTT FACS Scot Thurston. [address], [address] [facility], [place], [address], [place]. tel:[phone] Referring Provider: Gogo Grier MD S, [address] [place] [address], [place], [address]. tel:[phone] Office/Outpt E&M Established 15 Mins [facility], [address] [place] [address] [address], [id number], [place] tel:[phone] CVR - [facility] Venous insufficiency (chronic) (peripheral) 3 Ye SCOTT FACS Scot Thurston. [address] [place] [address], Suite [facility], [place], [address], [place]. [phone] Referring Provider: Gogo Grier MD S, [address] [place] [address], [place], [address]. tel:[phone] [facility], [address] [place] [address] [address], [id number], [place] tel:[phone] CVR - [facility] Venous insufficiency (chronic) (peripheral)Zbigniew n in right legPain in left leg 3 Ye SCOTT FACS Scot Thurston. [address], [address], [place], [address], [place]. tel:[phone] Referring Provider: Gogo Grier MD S, [address] [place] [address] Drive, [place], [address]. tel:[phone] Offic Cons New/estab Mod-hi [address] [facility], [address], [place], [id number], [place] tel:[phone] CVR - [facility] Essential (primary) hypertensionPru ritus, unspecifiedVeno us insufficiency (chronic) (peripheral)Loc alized edema 3 Ye SCOTT FACS RVT RP Emanuel Thurston. [address], [address], [place], [address], [place]. tel:[phone] Referring Provider: Gogo Grier MD S, [address] [place] [address], [place], [address]. tel:[phone] Family History Family Member Type Diagnosis Age At Onset No Information Payers Payer name Insurance type Covered democrat [facility] [id number] Social History Type Description Quantity Date Captured [...]
--- OUTSIDE RECORDS SUMMARY | 2024-07-28 09:48 | XMS_ITS ---
Author Organization [facility] Address [address] [facility] [place] [address] Care Team Providers Care Team Foreman Name Role Phone Gogo Grier MD Primary Care Provider Shahla Burkett Unavailable [phone] Allergies Allergen (clinical drug ingredient) Drug/Non Drug Allergy documented on EMR Reaction Allergy Type Onset Date Status sulfamethoxazole / trimethoprim Bactrim hives Drug Allergy Active REASON FOR VISIT Wart(s) Medications Medication SIG (Take, Route, Frequency, Duration) Notes Start Date End Date Status Excedrin Extra Strength Active Ventolin HFA 108 (90 Base) MCG/ACT Inhalation for 30 Not-Taking methylPREDNISolone 4 MG Oral for 6 Not-Taking Azithromycin 250 MG Oral for 5 Not-Taking Voltaren 1 % Transdermal for 7 Not-Taking Breo Ellipta 100-25 MCG/INH Inhalation for 90 Active Metoprolol Succinate 100 MG 1 capsule Or ally Once a day for 30 day(s) Active predniSONE 50 MG Oral for 5 No t-Taking ZyrTEC Allergy 10 MG 1 capsule Orally Once a day for 30 day(s) Active Losartan Potassium 50 MG Oral for 90 Not-Taking Imitrex 25 MG 1 tablet as needed Orally Twice a day PRN Active Social History Tobacco Use: Social History Observation [...] Are you an other tobacco user? No Vital Signs Height 5 ft 5 in in 09/25/2023 Weight 200 lbs 09/25/2023 BMI 33.28 kg/m2 09/25/2023 Encounters Encounter Location Date Provider Diagnosis [facility] [place] [address] [place] [address] 09/25/2023 Shahla Guevara Right foot pain M79.671 ; Plantar wart B07.0 and Left foot pain M79.672 Assessments Encounter Date Diagnosis (ICD Code) Assessment Notes Treatment Notes Treatment Clinical Notes Section Notes 09/25/2023 Right foot pain (ICD-10 - M79.671) 09/25/2023 Plantar wart (ICD-10 - B07.0) 09/25/2023 Left foot pain (ICD-10 - M79.672) Plan Of Treatment Next Appt Details Follow Up: prn, Reason: Procedure Notes * Category Sub-Category Detail Notes Wart Treatment Procedure Verrucae were de brided to pin-point bleeding margins with sterile 15 surgical blade, silver nitrate chemocautery applied, recomm. immune-boosting meds such as zinc, recomm. follow up with topical chemosurgical agents, Pt defers any other forms of tx (00762) Progress Notes * Blanca TOMPKINSB: (77 yo F)Acc No.[id number]:09/25/2023 Progress Note Patient:?Marija Tompkins Provider:?Shahla Guevara DPM :1945???Age:77 Y???Sex:Female D ate:09/25/2023 Address:[address] [place], [place] [id number] Pcp:Gogo Grier MD Subjective: * Chief Complaints: * ???Wart(s) * HPI: ???Skin problems:?Pt States PCP Visit: ?DATE?08/18/2023 * ROS:?General/Constitutional:?Nausea?denies.?Vomiting?denies.?Hunger Thirst?denies.?Loss appetite?denies.?Chills?denies.?Fatigue?denies.?Fever?denies.?Night Sweats?denies.?Unexplained weight loss?denies.?Unexplained weight gain?denies.?HEENTM:?Dentures?denies.?Dizziness?denies.?Glasses/contacts?admits.?Retinopathy?de nies.?Blurred/double vision?denies.?TMJ?denies.?Discharge/drainage?denies.?Implants?denies.?Sore throat?denies.?Dental implants?denies.?Hard of hearing ?denies.?Difficulty chewing/swallowing/speaking?denies.?Nose bleeds?denies.?Sore mouth?denies.?Respiratory:?On Oxygen?denies.?Pneumonia/pleurisy?denies.?Bronchitis?denies.?Emphysema?denies.?C oughing?denies.?Cough blood?denies.?Shortness of breath?denies.?Wheezing?denies.?Cardiovascular:?Pacemaker?denies.?MVP?denies.?WPW?denies.?CHF?denies.?Heart attack?denies.?Septal defect?denies.?Rapid beat?denies.?Chest pain ?denies.?Atrial Fib.?denies.?Murmur/Palpitations?denies.?Gastrointestinal:?Hemorrhoids?denies.?Stomach/Abdominal pain?denies.?Dark blood stool?denies.?Irritable bowel ?denies.?Constipation?denies.?Diarrhea?denies.?Hematology:?Swelling?denies.?Clots?denies.?Varicose Veins?denies.?Bruising?denies.?Bleeding problem?denies.?Genitourinary:?Blood urine?denies.?Frequent/Painfu/urination/bladder control?denies.?Kidney stones?denies.?Infection (UTI)?denies.?Nephropathy?denies.?sex trans dis (STD)?denies.?Prostate?denies.?Musculoskeletal:?Hammertoes?denies.?Bunions?denies.?Back Pain?denies.?Muscle Cramps/ Resting?denies.?Muscle cramps / walking?denies.?Generalized aches and pains?denies.?Weakness?denies.?Integ.:?Gambino?denies.?Scars?denies.?Corns/calluses?admits.?Ingrown nails?denies.?Painful nails?denies.?Open Sores?denies.?Rashes?denies.?Neurologic:?Difficulty sleeping?denies.?Brain disorder?denies.?Numbness?denies.?Balance trouble?denies.?Confusion?denies.?Fainting/blackouts?denies.?Tingling?denies.?Tr emors?denies.? * Medical History:? * Surgical History:?No Surgica l History documented. * Hospitalization/Major Diagno stic Procedure:?[facility] 04/2018 * Family History:?Mother: dece ased, diagnosed with Family history of arthritis, Other malignant neoplasm of unspecified site.?Father: .?Children: diagnosed with Diabetic - NIDDM.? * Social History:?Tobacco Use:?Tobacco Use/Smoking?Are you a:?former smoker ?Additional Findings: Tobacco Non-User?Current non-smoker,Ex-cigarette smoker amount unknown ?Tobacco use other than smoking?Are you an other tobacco user??No ???Drugs/Alcohol:?Drugs?Have you used drugs other than those for medical reasons in the past 12 months??No ?Alcohol Screen?Did you have a drink containing alcohol in the past year??Yes ?How often did you have a drink containing alcohol in the past year??Monthly or less (1 point) ?Points?1 ?Interpretation?Negative ???Miscellaneous:?Caffeine: yes, Varies tea. ?Children: yes, 2. ?Exercise: yes, walking. ?Marital status: . 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 * Medications:?TakingExcedrin Extra Strength Imitrex 25 MG Tablet 1 tablet as needed Orally Twice a day, Notes: PRNBreo Ellipta 100-25 MCG/INH Aerosol Powder Breath Activated Inhalation Metoprolol Succinate 100 MG Capsule ER 24 Hour Sprinkle 1 capsule Orally Once a dayZyrTEC Allergy 10 MG Capsule 1 capsule Orally Once a dayTaking Excedrin Extra Strength Taking Imitrex 25 MG Tablet 1 tablet as needed Orally Twice a day, Notes: PRNTaking Breo Ellipta 100-25 MCG/INH Aerosol Powder Breath Activated Inhalation Taking Metoprolol Succinate 100 MG Capsule ER 24 Hour Sprinkle 1 capsule Orally Once a dayTaking ZyrTEC Allergy 10 MG Capsule 1 capsule Orally Once a dayNot-Taking/PRNLosartan Potassium 50 MG Tablet Oral predniSONE 50 MG Tablet Oral Voltaren 1 % Gel Transdermal Azithromycin 250 MG Tablet Oral Ventolin HFA 108 (90 Base) MCG/ACT Aerosol Solution Inhalation methylPREDNISolone 4 MG Tablet Therapy Pack Oral Medication List reviewed and reconciled with the patientNot-Taking/PRN Losartan Potassium 50 MG Tablet Oral Not-Taking/PRN predniSONE 50 MG Tablet Oral Not-Taking/PRN Voltaren 1 % Gel Transdermal Not-Taking/PRN Azithromycin 250 MG Tablet Oral Not-Taking/PRN Ventolin HFA 108 (90 Base) MCG/ACT Aerosol Solution Inhalation Not-Taking/PRN methylPREDNISolone 4 MG Tablet Therapy Pack Oral Medication List reviewed and reconciled with the patient * Allergies:?Bactrim: hivesyes [Allergies Verified] Objective: * Vitals:?Ht: 5 ft 5 in, Wt:20 0, BMI:33.28, Shoe size:8.5. * Examination: ???Dermatologic: ?VERRUCA:?Reveals Multiple ( 2 ), multi-loculated , mosaic-patterned, round, raised, flat-topped, petechial bleeding papule(s), with cauliflower appearance and interruption of skin lines, with pain to lateral compression, and size estimated at 3 mm diameter , plantar Forefoot , B/L.? Assessment: * Assessment: 1.?Right foot pain - M79.671 ?2.?Plantar wart - B07.0 (Primary)?3.?Left foot pain - M79.672? Plan: * Treatment: * Procedures:?Wart Treatment:?Procedure?Verrucae were debrided to pin-point bleeding margins with sterile 15 surgical blade, silver nitrate chemocautery applied, recomm. immune-boosting meds such as zinc, recomm. follow up with topical chemosurgical agents, Pt defers any other forms of tx (02200).? * Procedure Codes:?11435 Wart Destruction, 1-14, Modifiers: XS * Follow Up:?prn * Images: * Sign off status: Completed true * Provider:?Shahla Guevara DPM Date:?04/2024 Generated for Fabiana kline/Dieudonne/Daphne on:?07/28/2024 09:47 AM EST History and Physical Notes * HPI (History of Present Illness) Category Sub-Category Detail Notes Category Not es Skin problems Pt States PCP Visit: DATE: 08/18/2023 Examination Category Sub-Category Detail Notes Category Not es Dermatologic VERRUCA: Reveals Multiple ( 2 ), multi-loculated , mosaic-patterned, round, raised, flat-topped, petechial bleeding papule(s), with cauliflower appearance and interruption of skin lines, with pain to lateral compression, and size estimated at 3 mm diameter , plantar Forefoot , B/L
--- OUTSIDE RECORDS SUMMARY | 2024-07-28 09:48 | XMS_ITS ---
Author Organization [facility] Address [address] [facility] [place] [address] Care Team Providers Care Web Press Roll Tender Name Role Phone Gogo Grier MD Primary Care Provider Shahla Burkett Unavailable [phone] Allergies Allergen (clinical drug ingredient) Drug/Non Drug Allergy documented on EMR Reaction Allergy Type Onset Date Status sulfamethoxazole / trimethoprim Bactrim hives Drug Allergy Active REASON FOR VISIT Pcp- 07/2022, Warmary(s) Medications Medication SIG (Take, Route, Frequency, Duration) Notes Start Date End Date Status Azithromycin 250 MG Oral for 5 Not-Taking Ventolin HFA 108 (90 Base) MCG/ACT Inhalation for 30 Not-Taking predniSONE 50 MG Oral for 5 No t-Taking Voltaren 1 % Transdermal for 7 Not-Taking methylPREDNISolone 4 MG Oral for 6 Not-Taking Imitrex 25 MG 1 tablet as needed Orally Twice a day Active ZyrTEC Allergy 10 MG 1 capsule Orally Once a day for 30 day(s) Active Losartan Potassium 50 MG Oral for 90 Not-Taking Breo Ellipta 100-25 MCG/INH Inhalation for 90 Active Metoprolol Succinate 100 MG 1 capsule Or ally Once a day for 30 day(s) Active Social History Tobacco Use: Social History [...] Signs Height 5 ft 5 in in 02/10/2023 Weight 200 lbs 02/10/2023 BMI 33.28 kg/m2 02/10/2023 Encounters Encounter Location Date Provider Diagnosis [facility] [place] [address] [place] [address] 02/10/2023 Shahla Guevara Plantar wart B07.0 and Pain in right foot M79.671 Assessments Encounter Date Diagnosis (ICD Code) Assessment Notes Treatment Notes Treatment Clinical Notes Section Notes 02/10/2023 Plantar wart (ICD-10 - B07.0) 02/10/2023 Pain in right foot (ICD-10 - M79.671) Plan Of Treatment Next Appt Details Follow Up: prn, Reason: Procedure Notes * Category Sub-Category Detail Notes Wart Treatment Procedure Verrucae were de brided to pin-point bleeding margins with sterile 15 surgical blade, silver nitrate chemocautery applied, recomm. immune-boosting meds such as zinc, recomm. follow up with topical chemosurgical agents, Pt defers any other forms of tx (59905) Progress Notes * Blanca TOMPKINSB: 7 (77 yo F)Acc No.[id number]:02/10/2023 Progress Note Patient:?González Tompkinsa Provider:?Shahla Guevara DPM :1945???Age:77 Y???Sex:Female D ate:02/10/2023 Address:[address] [place], [place] [id number] Pcp:Gogo Grier MD Subjective: * Chief Complaints: * ???Pcp- 07/2022 Wart(s) * HPI: ???Skin problems:?Pt States PCP Visit: ?DATE?07/31/2022 * ROS:?General/Constitutional:?Nausea?denies.?Vomiting?denies.?Hunger Thirst?denies.?Loss appetite?denies.?Chills?denies.?Fatigue?denies.?Fever?denies.?Night Sweats?denies.?Unexplained weight loss?denies.?Unexplained weight gain?denies.?HEENTM:?Dentures?denies.?Dizziness?denies.?Glasses/contacts?admits.?Retinopathy?de nies.?Blurred/double vision?denies.?TMJ?denies.?Discharge/drainage?denies.?Implants?denies.?Sore throat?denies.?Dental implants?denies.?Hard of hearing ?denies.?Difficulty chewing/swallowing/speaking?denies.?Nose bleeds?denies.?Sore mouth?denies.?Respiratory:?On Oxygen?denies.?Pneumonia/pleurisy?denies.?Bronchitis?denies.?Emphysema?denies.?C oughing?denies.?Cough blood?denies.?Shortness of breath?denies.?Wheezing?denies.?Cardiovascular:?Pacemaker?denies.?MVP?denies.?WPW?denies.?CHF?denies.?Heart attack?denies.?Septal defect?denies.?Rapid beat?denies.?Chest pain ?denies.?Atrial Fib.?denies.?Murmur/Palpitations?denies.?Gastrointestinal:?Hemorrhoids?denies.?Stomach/Abdominal pain?denies.?Dark blood stool?denies.?Irritable bowel ?denies.?Constipation?denies.?Diarrhea?denies.?Hematology:?Swelling?denies.?Clots?denies.?Varicose Veins?denies.?Bruising?denies.?Bleeding problem?denies.?Genitourinary:?Blood urine?denies.?Frequent/Painfu/urination/bladder control?denies.?Kidney stones?denies.?Infection (UTI)?denies.?Nephropathy?denies.?sex trans dis (STD)?denies.?Prostate?denies.?Musculoskeletal:?Hammertoes?denies.?Bunions?denies.?Back Pain?denies.?Muscle Cramps/ Resting?denies.?Muscle cramps / walking?denies.?Generalized aches and pains?denies.?Weakness?denies.?Integ.:?Gambino?denies.?Scars?denies.?Corns/calluses?admits.?Ingrown nails?denies.?Painful nails?admits.?Open Sores?denies.?Rashes?denies.?Neurologic:?Difficulty sleeping?denies.?Brain disorder?denies.?Numbness?denies.?Balance trouble?denies.?Confusion?denies.?Fainting/blackouts?denies.?Tingling?denies.?Tr emors?denies.? * Medical History:? * Surgical History:?Densandra Morales t Surgical History * Hospitalization/Major Diagno stic Procedure:?[facility] 04/2018 [...] ???Miscellaneous:?Caffeine: yes, Varies tea. ?Children: yes, 2. ?no Exercise. ?Marital status: . 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 * Medications:?TakingImitrex 2 5 MG Tablet 1 tablet as needed Orally Twice a dayBreo Ellipta 100-25 MCG/INH Aerosol Powder Breath Activated Inhalation Metoprolol Succinate 100 MG Capsule ER 24 Hour Sprinkle 1 capsule Orally Once a dayZyrTEC Allergy 10 MG Capsule 1 capsule Orally Once a dayTaking Imitrex 25 MG Tablet 1 tablet as needed Orally Twice a dayTaking Breo Ellipta 100-25 MCG/INH Aerosol Powder Breath [...] BMI:33.28, Shoe size:8.5. * Examination: ???Dermatologic: ?VERRUCA:?Reveals a Single , multi-loculated , mosaically patterned, round, raised, flat-topped, petechial bleeding papule(s), with cauliflower appearance and interruption of skin lines, pain to lateral compression, and size estimated at 3mm diameter , plantar Midfoot , RIGHT.? Assessment: * Assessment: 1.?Plantar wart - B07.0 (Nimo zimmerman)?2.?Pain in right foot - M79.671? Plan: * Treatment: * Procedures:?Wart Treatment:?Procedure?Verrucae were debrided to pin-point bleeding margins with sterile 15 surgical blade, silver nitrate chemocautery applied, recomm. immune-boosting meds such as zinc, recomm. follow up with topical chemosurgical agents, Pt defers any other forms of tx (00202).? * Procedure Codes:?23991 Wart Destruction, 1-14, Modifiers: XS * Follow Up:?prn * Images: * Sign off status: Completed true * Provider:?Shahla Guevara DPM Date:? Generated for Fabiana kline/Dieudonne/eTsukhismitting on:?07/28/2024 09:48 AM EST History and Physical Notes * HPI (History of Present Illness) Category Sub-Category Detail Notes Category Not es Skin problems Pt States PCP Visit: DATE: 07/31/2022 Examination Category Sub-Category Detail Notes Category Not es Dermatologic VERRUCA: Reveals a Single , multi-loculated , mosaically patterned, round, raised, flat-topped, petechial bleeding papule(s), with cauliflower appearance and interruption of skin lines, pain to lateral compression, and size estimated at 3mm diameter , plantar Midfoot , RIGHT
[2024-07-28 09:50] VITALS: BP 118/82; PULSE 63; O2SAT 95
--- NOTE | 2024-07-28 09:50 | MHC.PC.OV ---
Vital Signs 07/28/24 09:50 Height 5 ft 4 in BMI Reason not done Patient refused/unable BP 118/82 Blood Pressure Location Lt brachial Position Sitting Pulse 63 Pulse Source Pulse Oximeter Pulse Oximetry (%) 95 Oxygen Delivery Method Room Air Intake Visit Reasons: Followup asthma Intake Note: Pt is here today for a follow up visit on asthma. Allergies sulfamethoxazole [From Bactrim] Allergy (Mild, Verified 07/28/24 09:51) RASH trimethoprim [From Bactrim] Allergy (Mild, Verified 07/28/24 09:51) RASH Sulfa (Sulfonamide Antibiotics) Allergy (Unknown, Verified 07/28/24 09:51) rash amoxicillin Adverse Reaction (Unknown, Verified 07/28/24 09:51) nausea and vomiting lisinopril Adverse Reaction (Unknown, Verified 07/28/24 09:51) cough Medication List - Last Reconciled 07/28/24 by Gogo Grier MD fluticasone propion-salmeterol 250-50 mcg/dose (Advair Diskus) 1 inh inhalation BID ibuprofen 800 mg PO Q8H PRN metoprolol succinate ER 100 mg PO DAILY sumatriptan 20 mg/actuation (Imitrex) 20 mg intranasal Q2H PRN [Vitamin D (with calcium) 1 tab PO DAILY] Tobacco use date assessed: 07/28/24 Dental Screening Dental Screen Date: 01/08/24 HPI Followup asthma HPI Details Patient presents for the follow-up of asthma. She has been taking fluticasone inhaler 100 mcg 2 puffs a day instead of Breo but reports worsening her asthma control. She reports having intermittent dry cough and wheezing at night. Paroxysmal AFib has been controlled on metoprolol. [facility] Medical History Annual physical exam Hyperglycemia Hyperlipidemia Morbid obesity Atrial fibrillation Migraine Surgical History History of section History of incisional hernia repair S/P colon resection Family History Father CHF (congestive heart failure) Mother No problems noted. Son No problems noted. Son No problems noted. Social History Household Members: Other Housing: House Do you presently have visiting nurse or other home services: No Alcohol intake: never Patient Tobacco Use Status: Never used Tobacco e-Cigarette/Vaping Use: Never Used service: No Current occupational status: employed Cognitive needs: No Hearing needs: No Vision needs: Yes Questionnaire Thrive Questionnaire Date Thrive assessed: 05/08/24 I am a: Patient What is your living situation today?: I choose not to answer this question Within the past 12 months, did the food you bought not last and you didn't have the money to get more?: I choose not to answer this question Within the past 12 months, did you worry whether your food would run out before you got money to buy more?: I choose not to answer this question Do you have trouble paying for medicines?: I choose not to answer this question Do you have trouble getting transportation to medical appointments?: I choose not to answer this question Do you have trouble paying your heating and electricity bill?: I choose not to answer this question Do you have trouble taking care of your child, family member or friend?: I choose not to answer this question Do you have trouble with day-to-day activities such as bathing, preparing meals, shopping, managing finances, etc.?: I choose not to answer this question Are you interested in more education?: No Please select the resources that you would like help with: None THRIVE Score: 0 HE-7 AMB Questionnaire HE-7 Date HE - 7 assessed: 01/08/24 Source: Developed by Drs. González Rubi, Tuyet Cabello, Constantine Bernal and colleagues, with an educational yesica from [employer]. Review of Systems Const All systems reviewed & are unremarkable except as noted in HPI and below Eyes Reports no additional complaints ENT Reports no additional complaints Card Reports no additional complaints Resp Reports no additional complaints GI Reports no additional complaints Reports no additional complaints Physical exam (Primary Care) Vital Signs: Last Vital Signs Pulse 63 07/28/24 09:50 BP 118/82 07/28/24 09:50 Pulse Ox 95 07/28/24 09:50 Oxygen Delivery Method Room Air 07/28/24 09:50 Tobacco/Smoking Status: Tobacco use Status Tobacco use date assessed 07/28/24 07/28/24 09:52 Patient Tobacco Use Status Never used Tobacco 07/28/24 09:52 e-Cigarette/Vaping Use Never Used 07/28/24 09:52 Thrive Assessment: Date of Thrive Assessment Date Thrive assessed 05/08/24 07/28/24 09:52 Const General: no acute distress HENMT Head: Yes normal to inspection Ears: hearing grossly normal bilaterally Mouth: Normal oral and palatal mucosa present Neck Neck: Yes supple Resp Effort & Inspection: normal respiratory effort Auscultation: diminished lung sounds Cardio Rhythm: regular rhythm Heart sounds: S1 normal heart sound present and S2 normal heart sound present Results AMB Hemoglobin A1c AMB Hemoglobin A1c 5.5 % Last Edit by OBDULIA Barreto on 07/28/24 10:47 Results Reviewed Results Reviewed: Laboratory Last Values Hgb A1c (Clinic) 5.5 % (4.0-6.0) 07/28/24 10:41 Coding Level of Care Code Est Pt Level 4 (75873) Diagnoses Hyperglycemia R73.9 Hyperlipidemia E78.5 Asthma J45.909 Assessment & Plan Assessment & Plan (1) Hyperglycemia: Code(s): R73.9 - Hyperglycemia, unspecified Category: Medical Plan: ADA diet regular physical activity discussed with the patient check A1c (2) Hyperlipidemia: Comment: refuses meds 01/2022 Code(s): E78.5 - Hyperlipidemia, unspecified Category: Medical Plan: Continue low-cholesterol diet (3) Asthma: Comment: Patient's insurance does not cover Breo inhaler Code(s): J45.909 - Unspecified asthma, uncomplicated Category: Medical Plan: Try Advair 250 1 puff twice a day instead of fluticasone and use albuterol as needed. Patient requested referral to electric motor analyst Dr. Pizarro Orders: Orders Comprehensive [place]. Panel Fast Today E78.5 - Hyperlipidemia, unspecified, I10 - Essential (primary) hypertension, R73.9 - Hyperglycemia, unspecified Complete Blood Count Auto Diff Today E78.5 - Hyperlipidemia, unspecified, I10 - Essential (primary) hypertension, R73.9 - Hyperglycemia, unspecified AMB Hemoglobin A1c Today Z13.9 - Encounter for screening, unspecified Hemoglobin A1c Today E78.5 - Hyperlipidemia, unspecified, I10 - Essential (primary) hypertension, R73.9 - Hyperglycemia, unspecified TSH reflex Free T4 Today E78.5 - Hyperlipidemia, unspecified, I10 - Essential (primary) hypertension, R73.9 - Hyperglycemia, unspecified Referrals Pulmonology Referral J45.876 - Unspecified asthma, uncomplicated Medications: New fluticasone propion-salmeterol 250-50 mcg/dose (Advair Diskus) 1 inh inhalation BID 180 ea 1RF Refilled metoprolol succinate ER 100 mg PO DAILY 90 tabs 3RF Discontinued fluticasone furoate-vilanterol 100-25 mcg/dose (Breo Ellipta) Discontinued Reason: Doctor's Order 2 inhalations inhalation DAILY 180 ea 3RF fluticasone propionate 100 mcg/actuation Discontinued Reason: Doctor's Order 2 inhalations inhalation DAILY 180 ea 0RF
== END 2024-07-28 11:58 | disposition home or self-care (01) ==
PROVIDERS: PCP Internal Medicine; Visit Provider Internal Medicine
DX: R73.9 Hyperglycemia, unspecified (principal); E78.5 Hyperlipidemia, unspecified; J45.909 Unspecified asthma, uncomplicated; Z13.9 Encounter for screening, unspecified

== ENCOUNTER → 2024-07-28 09:45 | Outpatient (BNVA) | payer BC, SELFPAY | PROVIDERS: PCP Internal Medicine; Visit Provider Internal Medicine | DX: R73.9 Hyperglycemia, unspecified (principal); E78.5 Hyperlipidemia, unspecified; J45.909 Unspecified asthma, uncomplicated | CPT/HCPCS: 83036 ==

== ENCOUNTER 2024-10-25 11:42 | Outpatient (AMB) | payer BC, SELFPAY ==
[2024-10-25 11:56] VITALS: BP 136/80; PULSE 86; TEMP 36.6; O2SAT 97
--- NOTE | 2024-10-25 11:56 | A.OFFPC_ITS ---
Vital Signs 10/25/24 11:56 Height 5 ft 4 in BMI Reason not done Patient refused/unable BP 136/80 Blood Pressure Location Lt brachial Position Sitting Pulse 86 Pulse Source Pulse Oximeter Temp 97.8 F Temp Source Oral Pulse Oximetry (%) 97 Oxygen Delivery Method Room Air Intake Visit Reasons: Cough, sinus infection Intake Note: Pt is here today for a sick visit. Pt c/o cough sinus pressure Allergies sulfamethoxazole [From Bactrim] Allergy (Mild, Verified 07/28/24 09:51) RASH trimethoprim [From Bactrim] Allergy (Mild, Verified 07/28/24 09:51) RASH Sulfa (Sulfonamide Antibiotics) Allergy (Unknown, Verified 07/28/24 09:51) rash amoxicillin Adverse Reaction (Unknown, Verified 07/28/24 09:51) nausea and vomiting lisinopril Adverse Reaction (Unknown, Verified 07/28/24 09:51) cough Medication List - Last Reconciled 10/25/24 by Gogo Grier MD ibuprofen 800 mg PO Q8H PRN levofloxacin 750 mg PO DAILY 7 days metoprolol succinate ER 100 mg PO DAILY prednisone Four tablets p.o. q.d. for 3 days then 3 tablets p.o. q.d. for 3 days then 2 tablets p.o. q.d. for 3 days then 1 tablet p.o. q.d. for 3 days sumatriptan 20 mg/actuation (Imitrex) 20 mg intranasal Q2H PRN [Vitamin D (with calcium) 1 tab PO DAILY] Tobacco use date assessed: 10/25/24 Fall risk assessment: No Falls in past year Last assessed Fall Risk: 10/25/24 Dental Screening Dental Screen Date: 10/25/24 Did you have a dental visit in the last 12 months?: Yes Did you have a dental problem in the last 6 months where you did not have access to dental care?: No Was dental information given to patient?: Patient has dentist HPI Cough, sinus infection HPI Details Pt presents c/o productive cough with green sputum, chest tightness general fatigue for 3 weeks. Patient took Z-Andrea last month for sinusitis felt better for 2 days and her symptoms worsen. She denies fever but reports having chills. Patient's insurance does not cover Breo and she refuses to use Wixela. COUNTS INCLUDE 234 BEDS AT THE [facility] Medical History Annual physical exam Hyperglycemia Hyperlipidemia Morbid obesity Atrial fibrillation Migraine Surgical History History of section History of incisional hernia repair S/P colon resection Family History Father CHF (congestive heart failure) Mother No problems noted. Son No problems noted. Son No problems noted. Social History Household Members: Other Housing: House Do you presently have visiting nurse or other home services: No Alcohol intake: never Patient Tobacco Use Status: Never used Tobacco e-Cigarette/Vaping Use: Never Used service: No Current occupational status: employed Cognitive needs: No Hearing needs: No Vision needs: Yes Questionnaire Thrive Questionnaire Date Thrive assessed: 10/25/24 HE-7 AMB Questionnaire HE-7 Date HE - 7 assessed: 01/08/24 Source: Developed by Drs. González Rubi, Tuyet Cabello, Constantine Bernal and colleagues, with an educational yesica from [employer]. Review of Systems Const All systems reviewed & are unremarkable except as noted in HPI and below Eyes Reports no additional complaints ENT Reports no additional complaints Card Reports no additional complaints Resp Reports no additional complaints GI Reports no additional complaints Reports no additional complaints Physical exam (Primary Care) Vital Signs: Last Vital Signs Temp 97.8 F 10/25/24 11:56 Pulse 86 10/25/24 11:56 BP 136/80 10/25/24 11:56 Pulse Ox 97 10/25/24 11:56 Oxygen Delivery Method Room Air 10/25/24 11:56 Tobacco/Smoking Status: Tobacco use Status Tobacco use date assessed 10/25/24 10/25/24 12:09 Patient Tobacco Use Status Never used Tobacco 10/25/24 11:57 e-Cigarette/Vaping Use Never Used 10/25/24 11:57 Thrive Assessment: Date of Thrive Assessment Date Thrive assessed 10/25/24 10/25/24 11:57 Const General: no acute distress HENMT Face and sinus: Yes normal facial exam Eyes General: appearance normal, both eyes and all related structures Neck Neck: Yes no lymphadenopathy and Yes supple Resp Effort & Inspection: normal respiratory effort Auscultation: rhonchi, wheezes and diminished lung sounds Cardio Rhythm: regular rhythm Heart sounds: S1 normal heart sound present and S2 normal heart sound present GI Inspection: Yes normal to inspection Coding Level of Care Code Est Pt Level 3 (15008) Diagnoses Cough R05.9 Asthma J45.909 Assessment & Plan Assessment & Plan (1) Cough: Code(s): R05.9 - Cough, unspecified Category: Medical Plan: Check chest x-ray Levaquin and prednisone taper as prescribed. Patient refused to use inhalers other than Breo (2) Asthma: Comment: Patient's insurance does not cover Breo inhaler Code(s): J45.909 - Unspecified asthma, uncomplicated Category: Medical Plan: Check PFTs Orders: Orders PFT pulmonary function test Today J45.909 - Unspecified asthma, uncomplicated XR chest 1V Today R05.9 - Cough, unspecified Medications: New levofloxacin 750 mg PO DAILY 7 days 7 tabs 0RF prednisone Four tablets p.o. q.d. for 3 days then 3 tablets p.o. q.d. for 3 days then 2 tablets p.o. q.d. for 3 days then 1 tablet p.o. q.d. for 3 days 30 tabs 0RF
--- OUTSIDE RECORDS SUMMARY | 2024-10-25 14:29 | XMS_ITS ---
Author Organization [facility] Address [address] [place] [address] Care Team Providers Care Jersey Knitter Name Role Phone Gogo Grier MD Primary Care Provider Shahla Burkett Unavailable [phone] Allergies Allergen (clinical drug ingredient) Drug/Non Drug Allergy documented on EMR Reaction Allergy Type Onset Date Status Bactrim hives Drug Allergy Active REASON FOR [...] 09/25/2023 Encounters Encounter Location Date Provider Diagnosis [facility] [address] [place] [address] 09/25/2023 Shahla Guevara Right foot pain M79.671 [...] Pt defers any other forms of tx (08631) Progress Notes * Blanca JEREZB: (77 yo F)Acc No.[id number]:09/25/2023 Progress Note Patient:?Turner Marija Provider:?Shahla Guevara DPM :1945???Age:77 Y???Sex:Female D ate:09/25/2023 Address:[address] [place] [address] [place], [place] Pcp:Gogo Grier MD Subjective: * Chief Complaints: [...] walking. ?Marital status: . 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 * Medications:?TakingExcedrin Extra Strength Imitrex 25 MG [...] Pt defers any other forms of tx (46552).? * Procedure Codes:?12728 Wart Destruction, 1-14, Modifiers: XS * Follow Up:?prn * Images: * Sign off status: Completed true * Provider:?Shahla Guevara DPM Date:?04/2024 Generated for Fabiana kline/Dieudonne/Daphne on:?10/25/2024 02:29 PM EDT History and Physical Notes * HPI (History [...]
--- OUTSIDE RECORDS SUMMARY | 2024-10-25 14:29 | XMS_ITS | Clinical Summary ---
Author Organization [facility] Address [address] [place] [address] Care Team Providers Care Central Processing Technician Name Role Phone Gogo Grier MD Primary Care Provider [phone] Allergies Active Allergy Reactions Criticality Noted Date Comments Amoxicillin 11/29/2020 Lisinopril 11/29/2020 Cough Sulfamethoxazole 11/29/2020 rash Trimethoprim 11/29/2020 Medications metoprolol succinate (TOPROL-XL) 100 mg 24 hr tablet Take 1 tablet (100 mg total) by mouth 1 (one) time each day. 01/04/2024 Active glucos sul 2KCl/msm/chond/C /Mn (GLUCOSAMINE CHONDROITIN ORAL) Take by mouth. Active fluticasone furoate-vilanter oL (BREO ELLIPTA) 100-25 mcg/dose inhaler Inhale into the lungs daily. Active ibuprofen (ADVIL,MOTRIN) 200 mg tablet Take 800 mg by mouth as needed. Active cetirizine (ZyrTEC) 10 mg capsule daily. 12/06/2017 Active aspirin/acetamin ophen/caffeine (EXCEDRIN MIGRAINE ORAL) Take 250 mg by mouth as needed. Active cholecalciferol (VITAMIN D-3) 50 mcg (2,000 unit) tablet Take 2,000 mg by mouth daily. Active Active Problems Problem Noted Date Diagnosed Date Dyspnea on exertion 12/03/2023 Obesity (BMI 35.0-39.9 without comorbidity) 09/2021 Afib 11/29/2020 DVT (deep venous thrombosis) 11/29/2020 Overview (09/09/2024): Factor II mutation with recurrent DVT Primary hypertension 11/29/2020 Surgical History Surgery Date Site/Laterality Comments SECTION PROCEDURE: AR DELIVERY ONLY HERNIA REPAIR PROCEDURE: AR REPAIR FIRST ABDOMINAL WALL HERNIA Social History Tobacco Use Types Packs/Day Years Used Date Smoking Tobacco: Former Cigarettes Q uit: 08/17/1979 Smokeless Tobacco: Never Alcohol Use Standard Drinks/Week Comments Not Currently 0 (1 standard drink = 0.6 oz pur e alcohol) Comments Unknown Sex and Gender Information Value Date Recorded Sex Assigned at Not on file Legal Sex Female 4:09 PM EST Gender Identity Not on file Sexual Orientation Not on file Obstetrics History Last Filed Vital Signs Vital Sign Reading Time Taken Comments Blood Pressure 172/101 04/05/2024 4:10 PM EDT Pulse 73 04/05/2024 4:10 PM EDT Temperature - - Respiratory Rate - - Oxygen Saturation - - Inhaled Oxygen Concentration - - Weight - - Height 160 cm (5' 3 ) 04/05/2024 4:10 PM EDT Body Mass Index - - Plan of Treatment Upcoming Encounters Date Type Department Care Team (Late st Contact Info) Description 11/28/2024 9:20 AM EDT Office Visit [facility] [address] [place] [address] Trent Mandujano MD [address] [place] [address] [address],[facility] [address] [place] [address] Health Maintenance Due Date Last Done Comments DTaP,Tdap,and Td Vaccines (1 - Tdap) 1965 Pneumococcal Vaccine: 50+ Ye ars (1 of 1 - PCV) 1996 Zoster Vaccines (1 of 2) 1996 RSV Immunization Patients 60 + Years Old (1 - 1-dose 75+ series) 2021 Cholesterol Screening (Lipid Panel) 07/26/2022 Depression Screening 07/26/2022 Falls Risk Assessment 07/26/2022 Hepatitis C Screening 07/26/2022 Osteoporosis Screening (Bone Density Screening) 07/26/2022 Social Influencers of Health Screening 07/26/2022 Hypertension/CHF/CAD Annual BMP Blood Test 07/27/2022 COVID-19 Vaccine (1 - 2023-2 5 season) 2024 Influenza Vaccine (#1) 2024 HIB Vaccines Aged Out No longer eligi ble based on patient's age to complete this topic HPV Vaccines Aged Out No longer eligi ble based on patient's age to complete this topic Hepatitis A Vaccines Aged Out No long er eligible based on patient's age to complete this topic Hepatitis B Vaccines Aged Out No long er eligible based on patient's age to complete this topic IPV Vaccines Aged Out No longer eligi ble based on patient's age to complete this topic MMR Vaccines Aged Out No longer eligi ble based on patient's age to complete this topic Meningococcal ACWY Vaccine Aged Out N o longer eligible based on patient's age to complete this topic Meningococcal B Vacine Aged Out No lo nger eligible based on patient's age to complete this topic RSV Immunization Patients Un han 20 months Aged Out No longer eligible b ased on patient's age to complete this topic Varicella Vaccines Aged Out No longer eligible based on patient's age to complete this topic Insurance [facility] Care Teams Central Processing Technician Relationship Specialty Start Date End Date Gogo Grier MD PCP - General 12/03/17
--- OUTSIDE RECORDS SUMMARY | 2024-10-25 14:29 | XMS_ITS | Data Portability ---
Author Organization [facility], [facility] Address [address] [place] [address] Care Team Providers Care Technology Assistant Name Role Phone SHEEBA RAMOS Application Trainer [phone] Assessment No assessment recorded. Plan of Treatment Reminders Order Date Submit Date Provider Last Modified By Organization Details Last Modified Time Details Appointments None recorded. Lab None recorded. Referral occupationa l therapist referral - Diagnosis:G rade 3 RCL MCP rt middle fingerCusto m molded hand base orthosis protecting rt middle finger MCP in mild flexion, prevent ulnar deviation 2023 024 [email or web address] Not available 13:28:13 Procedures None recorded. Surgeries None recorded. Imaging XR, hand, 3 or more view - 3v rt hand, radiography technician, rm 118 2023 024 [email or web address] [facility], [address], [address], [place], [address], 13:28:13 XR, wrist, 3 or more view - 3v rt wrist, radiography technician, rm 118 2023 024 [email or web address] [facility], [address], [address], [place], [address], 13:28:13 Medication Orders None recorded. Patient TargetsNo targets recorded. Patient Instructions Encounter Date Encounter Id Patient Instructions Last Modified By Organization Details Last Modified Time 05/16/2024 [id number] [facility] Custom Hand Orthosis Information Sheet [address] [place] [address] Name: Marija Tompkins Right Diagnosis: Middle finger MCP joint MCL ligament grade 3 sprain Orthosis Code: Finger Hand HFO L 3913 Orthosis Style: Hand-based MCP immobilization orthosis The PURPOSE for this custom orthosis is to: Provide stability and reduce movement at the middle finger MCP joint PRECAUTIONS to consider include: HEAT SOURCES: including, but not limited to, the building equipment operator, dryer, stove, furnace, heater, car (on a hot summer day). PETS: they like to chew the plastic. SKIN: watch for redness, blisters or any skin irritations. CLEANING: use warm soapy water, wipes or park interpretive specialist to keep the plastic clean, cotton socks and straps can be hand washed. The PLAN is to wear this brace: Nearly full-time. Wearing this daytime and nighttime removing for personal hygiene of the hand. Avoiding deviation and full gripping. For modifications to this custom piece please contact your hand therapy provider. If you have not been assigned to hand therapy please call this office to be seen for an adjustment. This orthosis is medically necessary for proper and appropriate treatment of the above noted diagnosis. This orthosis has been custom fabricated by: Ludmila DELEON/Santi, CHT I understand the purpose, precautions and plan for this custom orthosis Patient Signature: [email or web address] Not available 05/16/2024 12:06:16 Reason for Referral Occupational Therapist Refer ral for Injury of extensor tendon of hand Diagnosis:Grade 3 RCL MCP rt middle fingerCustom molded hand base orthosis protecting rt middle finger MCP in mild flexion, prevent ulnar deviation Referring Physician: Joshua Evans, Orthopedic Surgery, Encounter Date: 05/16/2024 Results Created Date Observation Date Name Description Value Unit Range Abnormal Flag Note LastModifiedBy Organization Detail LastModifiedTime 04/15/20 24 01/01/2023 imagi ng/di agnos tic resul t No observ ation record ed. [email or web address] Not Available 03/19 05:17:04 04/15/20 24 12/17/2022 imagi ng/di agnos tic resul t No observ ation record ed. [email or web address] Not Available 03/19 05:17:05 05/16/20 24 05/16/2024 XR, hand, 3 or more view [email or web address] ?Encry pted=s hAaTro YD8dLq bEUv6g %2BXZw aYqtaq 0bqfl% 2Fg9IQ a4ajBk vP9nXo QUaueC m3YtLR FvZlgJ JJ8mAn HZtai3 2w3998 AC0Kqa 32GV6e lKiQtr MwF INTERFACE [facility] [address], [place], [address], 05/16/2024 11:42:23 05/16/20 24 05/16/2024 XR, hand, 3 or more view [email or web address] ?Encry pted=s hAaTro YD8dLq bEUv6g %2BXZw aYqtaq 0bqfl% 2Fg9IQ a4ajBk vP9nXo QUaueC m3YtLR FvZlgJ JJ8mAn HZtai3 2u5246 AC0Kqa 32GV6e lKiQtr MwF INTERFACE [facility] [address], [place], [address], 05/16/2024 11:42:26 05/16/20 24 05/16/2024 XR, wrist , 3 or more view [email or web address] ?Encry pted=s hAaTro YD8dLq bEUv6g %2BXZw aYqtaq 0bqfl% 2Fg9IQ a4ajBk vP9nXo QUaueC m3YtLR FvZlgJ JJ8mAn HZtai3 7f8393 AC0Kqa 32GV6S mKiQtr MwF INTERFACE [facility] [address], [place], [address], 05/16/2024 11:46:09 05/16/20 24 05/16/2024 XR, wrist , 3 or more view [email or web address] ?Encry pted=s hAaTro YD8dLq bEUv6g %2BXZw aYqtaq 0bqfl% 2Fg9IQ a4ajBk vP9nXo QUaueC m3YtLR FvZlgJ JJ8mAn HZtai3 1b2988 AC0Kqa 32GV6S mKiQtr MwF INTERFACE [facility] [address], [place], [address], 05/16/2024 11:46:11 Result Notes None recorded. Procedures Surgical History None recorded. Imaging Results Imaging Date Name Status LastModified by Organiz ation Details LastModified Time 01/01/2023 imaging/diag nostic result completed Information not available 04/15/2024 05:17:04 12/17/2022 imaging/diag nostic result completed Information not available 04/15/2024 05:17:05 05/16/2024 XR, hand, 3 or more view completed INTERFACE [facility] [address], [place], [address], 05/16/2024 11:42:23 05/16/2024 XR, hand, 3 or more view completed INTERFACE [facility] [address], [place], [address], 05/16/2024 11:42:26 05/16/2024 XR, wrist, 3 or more view completed INTERFACE [facility] [address], [place], [address], 05/16/2024 11:46:09 05/16/2024 XR, wrist, 3 or more view completed INTERFACE [facility] [address], [place], [address], 05/16/2024 11:46:11 Procedure Notes None recorded. Medical Equipment None Reported. Allergies Allergen ID Allergen Name Allergen Category Reaction Reaction Severity Criticality Documentation Date Start Date Code Code System Note Provider Name and Address Organization Details Recorded Time 16946 Substance with sulfonami de structure and antibacte rial mechanism of action (substanc e) medicatio n Not available Not available Not available 10/19/20232005 39403 8003 SNOMED Aller gyRea ction : 'Skin React ion'; Not Available [facility] 4 13:51:52 39902 Bactrim medicatio n Not available Not available Not available 10/19/20232011 38284 9 RxNorm Aller gyRea ction : 'Skin React ion'; Not Available [facility] 4 13:51:52 Medications Name Sig Start Date Stop Date Status Note LastModified by Organization Details LastModified Time metoprolol succinate ER 100 mg tablet,exte nded release 24 hr TAKE 1 TABLET DAILY BY iCIMSUS active Not Available Not Available No t Available fluticasone propionate 100 mcg/actuati on blister powder for inhalation USE 2 INHALATIO NS ORALLY DAILY active Not Available Not Available No t Available metoprolol succinate active Not Available Not Available No t Available oxycodone HCl-oxycodo ne-ASA 1 tab po qid prn painDO NOT DRIVE WHILE ON THIS MEDICATIO N 06/28 completed Statu s: 'Curr ent'; Not Available Not Available Not Available Vitals Date Recorded Body height Provider Name an d Address Organization Details Last Updated DateTime 05/16/2024 162.56 [facility] 05/16/2024 13:30:15 Date Recorded Body height Provider Name an d Address Organization Details Last Updated DateTime 07/01/2024 162.56 cm YECENIA OHARA [facility] 07/01/2024 09:36:56 Date Recorded Body height Provider Name an d Address Organization Details Last Updated DateTime 08/19/2024 162.56 cm [facility] 08/19/2024 09:18:39 Social History None recorded. Functional Status None recorded. Mental Status None recorded. Family History Nothing Reported. Medical History No medical history recorded. Gynecological HistoryNo gynecological history recorded. Obstetrics History GPAL:G 0 P 0 0 0 0 Past Encounters Encounter ID Performer Location Encounter Start Date Encounter Closed Date Diagnosis/Indication Diagnosis SNOMED-CT Code Diagnosis ICD10 Code Diagnosis Note [id number] MD Humberto Johnson [address] [address] 05/16/2024 11:12:23 06/11/2024 06:39:21 Pain in right hand 6448565774 10415 M79.641 Pain of right wrist 3169 190632 22593 M25.531 Injury of extensor tendon of hand 567450189 S66.801A Sprain fin rea, metacarpophalangeal joint, radial collateral ligament 915857069 S63.652A [id number] Ludmila Leblanc OTR/L,CHT [facility] [address] [place] [address] 05/16/2024 12:00:33 05/16/2024 12:36:15 Injury of extensor tendon of hand 443117059 S66.801A Today to protect the injured finger and restrict joint motion, deviation and tendon glide, a and based finger immobiliza tion orthosis was fabricated . The purpose, precaution s and plan with this orthosis are reviewed with the patient who agrees to wear this full-time for removing it for hygiene and exercise The patient understand s that this is a custom orthosis made of low temp thermoplas tic. Any modificati ons to the orthosis should be done by a Certified Hand Therapist. The patient may call for an appointmen t with me in this office. Or if the patient is receiving hand therapy , the provider at that clinic may adjust the orthosis as needed. The orthosis fabricated today is the appropriat e style for the diagnosis and informatio n provided. A rigid style orthosis is needed to protect the injury / surgery site and maintain alignment of the involved structures . [id number] KAMLESH Greene [address] [place] [address] 07/01/2024 09:14:14 07/19/2024 14:13:14 Osteoarthritis of finger joint of right hand 0730440008 4551737 M19.723 [id number] Ludmila Leblanc OTR/L,CHT [facility] [address] [place] [address] 07/04/2024 10:17:16 07/04/2024 10:30:46 Sprain of ligament of metacarpophalangeal joint of right middle finger [id number] 7480879 S63.652D The previous custom orthosis that I had fabricated for this patient was assessed. Initially we had made a hand-based volar index finger and middle finger MCP extension orthosis that would maintain the 2 digits adducted together but allow for IP flexion for function. This orthosis has run its course and has been quite successful in allowing for the MCL ligament to heal. She has much less swelling between the 2 MCP joints. She has much less swelling of the P1 of the middle finger. She has proper alignment of her EDC tendon as noted dorsally with digit extension. These are all signs that the ligament has healed nicely. At this point in her recovery For prevention , abduction is still discourage d. Especially with gripping activities . For this reason jesús taping or maintainin g the P1 of the index and middle finger adducted is recommende d while at the same time allowing MCP flexion. The patient had been provided some Coban by the physician communications assistant. I have provided the patient today with a jesús loop that she could easily remove for hand hygiene and then reapplied. She finds this to be more comfortabl e than the Coban tape. With further discussion about her daily routine activities at home and after work. I am recommendi eliud that she begin to allow this right hand to participat e in many of the dexterity tasks. She no longer needs to wear the volar hand-based orthosis for day-to-day activities . However we do recognize that there is quite a bit of weakness of the digits and therefore a nighttime resting orthosis would be a nice option so that she could reset and maintain the digits in full extension. The patient agrees to a volar index finger and middle finger digit extension hand-based nighttime orthosis. This is fabricated today for her. Osteoarthr itis of finger joint of right hand [id number] 1346888 M15.1 Further discussion with this patient and an activity analysis reveals that she has had an increase in pain on the radial side of the DIP joint since this injury which has now been 6 weeks. She acknowledg es the osteoarthr itis of this joint along with the ulnar deviation shift which is typical for this diagnosis and symmetrica l with her other hand. However she does report that the pain in this joint is relatively recent and she does notice that the pain increases specifical ly with tripod pinch as in handwrdalia richter. The stacey richter anatomical analysis finds that with a tripod pinch there is pressure pushing the DIP into ulnar deviation which also transfers down to pressure at the MCL ligament of the MCP joint. To alleviate some of the pressure and maintain her function, she has been wrapping the DIP joint and a Band-Aid with the cushion side on the radial portion of the digit. She finds this is adequate for her functions at work and can be removed and discarded for hygiene purposes. The patient states that as part of her assessment today with the PA there was a recommenda tion for a digit silicone sleeve to protect the DIP joint. There may have also been some discussion about a full-lengt h sleeve to accommodat e both the PIP and DIP joints as there continues to be some increase in posttrauma tic swelling in this area. A full digit sleeve would terminate just distal to the MCP joint and I do not recommend this as it will create compressio n and make it quite difficult for edema to drain proximally . I would recommend a short DIP only That terminates at the P2 joint to be worn only for activities . With further discussion about these 2 options versus what she has currently been doing. The patient states that she will stay the course with a Band-Aid covering. We have also discussed some activity modificati ons for the workstatio n that would alleviate the ulnar stress on the middle finger and be protected for the diagnosis of osteoarthr itis. Such modificati ons would include a larger dining room coordinator pen. [id number] MD JULIEN Johnson [address] [place] [address] 08/19/2024 09:05:34 09/05/2024 14:48:53 Sprain of ligament of metacarpophalangeal joint of right middle finger [id number] 5463278 S63.652D Health Concerns Section Related Observation LastModified by Organization Rosales edouard LastModified Time None Recorded Concern Status LastModified by Organization Details LastModified Time None Recorded Advance Directives Directive None Recorded Payers Encounter Date Sequence Insurance Name Policy Number Policy Pope Covered Member ID Pope Member ID Guarantor Name 05/16/2024 [facility] - [facility] Marija Tompkins 07/01/2024 [facility] Marija Tompkins 07/01/2024 [facility] Marija Tompkins 08/19/2024 [facility] Marija Tompkins Notes Date Note Type Note Provider Name and Address Organization Details Recorded Time 05/16/2024 text/html Diagnosis: Grade 3 RCL injury MCP joint right middle -prbt-cuj female who injured her right hand when she fell at work on 05/02/24. She notes some numbness and tingling in her right middle finger which has resolved. She continues to have pain and swelling of her right middle finger. She has a pre-existing history of osteoarthritis in her hand.Past family, medical, social history and review of systems has been reviewed, updated and is located in the patient? s chart.Examination: Healthy appearing patient in no apparent distress. Alert and oriented. Swelling deformity right middle finger consistent with osteoarthritis. Limited motion of that finger. Provocative testing of her wrists reveal no instability. Provocative testing of her digits reveal laxity of the radial collateral ligament of the MCP joint of her right middle finger. No atrophy in either upper extremity. Brisk capillary refill in all digitsX-rays ordered, obtained, and reviewed today at [facility]: PA, lateral, oblique views of the right hand reveals some diffuse osteoarthritis. There appears to be an ossicle bone radial to the third MCP joint. There is some arthritic change in that joint. PA, lateral, oblique views of the right wrist reveal a mild scapholunate gap with normal articular alignment.Plan: The patient I discussed her situation at length. The swelling and deformity of her middle finger may jesús tape support difficult. I have recommended the fabrication of a hand-based splint protecting her middle finger MCP joint while her collateral ligament heals. I recommended she work aggressively on digital range of motion over the next 6 weeks with the exception of the MCP joint of the right middle finger. She will follow up as directed. Joshua Evans MD [address] [place], [place] [address] [address], [place], [address], [facility] 05/18/2024 08:00:37 05/16/2024 text/html recent fall at w ork injured right hand, saw Dr Evans today. This patient has a grade 3 MCL sprain of the MCP joint of the right middle finger Ludmila Leblanc, OTR/L,CHT [address] [facility] [address], [place], [address], [facility] - [facility] 05/16/2024 12:36:09 07/01/2024 text/html I am seeing the patient under the general supervision of Dr. Evans diagnosis: Grade 3 RCL injury MCP joint right middle finger May 02, 2024Severe DIP joint osteoarthritis right middle [id number]-ify female who injured her right hand when she fell at work on 05/02/24. She returns today for reexamination. She is in a yoke splint. She is complaining about the splint and fabrication of. It staying in her skin. Continues to complain of right middle finger pain worse in the DIP joint. She reports her MCP joint swelling has improved. Has a hard time grabbing a pen to write or type due to the pain. On occasion takes a Motrin for back pain but she is not sure if it helps her finger pain.Past family, medical, social history and review of systems has been reviewed, updated and is located in the patient? s chart.Examination: Alert and oriented x 3. No acute distress. Examination right middle finger reveals no swelling of the MCP joint. No tenderness over the radial collateral ligament or ulnar collateral ligament. No instability. Has excellent flexion and extension of the MCP joint. Examination of the DIP joint reveals swelling and ulnar angular deformity. She is diffusely tender. No signs of infection. 1+ cap refill 2+ radial pulse. Left hand reveals no soft tissue swelling, erythema or ecchymosis. Digital range of motion is full. Neurovascular intact.Plan:. Findings and the situation discussed. Her index and middle fingers were jesús taped. She continues to complain of DIP joint pain. She was prescribed a digital silicone sleeve to pad her DIP joint so we can relieve the pain when she writes. She was also offered a corticosteroid injection to the DIP joint but she declined. I offered to switch her Motrin to meloxicam but she declined. We also discussed the role of surgery possible DIP fusion. She will continue with her work restrictions. She will follow-up in 4 to 6 weeks for reexamination. Elan Hawkins PA-C [address], [place], [address], [facility] 07/01/2024 10:07:11 07/01/2024 text/html 05/02/24 fall at work injured right hand, saw Dr Evans 05/16/24 who diagnosed a grade 3 MCL sprain of the MCP joint of the right middle finger. Was referred for a custom orthosis to protect the ligament. pt returns to the office today to meet with the PA to assess the recovery at 6 weeks post injury . Subsequently, she is referred for DME for further consultation on the overall recovery to include the DIP joint pain as well. Ludmila Leblanc, OTR/L,CHT [address], [place], [address], [facility] 07/04/2024 10:30:29 08/19/2024 text/html Diagnosis:1. Sev ere osteoarthritis right hand 2. Grade 3 RCL injury right middle finger MCP joint resolved The patient presents at our request. She is continue describing pain in her finger secondary to arthritis. Past family, medical, social history and review of systems has been reviewed, updated and is located in the patient? s chart. Examination: Healthy appearing patient in no apparent distress. Alert and oriented. Gross deformity of multiple digits consistent with severe osteoarthritis. Well-preserved digital range of motion bilaterally. Her middle finger MCP joint RCL is intact. No atrophy in either upper extremity. Brisk capillary refill in all digits Plan: The patient and I discussed her situation at length. Although she is most bothered by the arthritic pain in her fingers she is not interested in changing her medication or considering surgical intervention. She will follow-up with me at her discretion. Joshua Evans MD [address], [place], [address], [facility] 08/19/2024 10:21:22 OBGyn Episode No OBEpisode recorded.
--- OUTSIDE RECORDS SUMMARY | 2024-10-25 14:29 | XMS_ITS | Patient Health Record ---
Author Organization [facility] Address [address] [facility] [place] [address] Care Team Providers Care Ui Software Developer Name Role Phone Gogo Grier MD Primary Care Provider Shahla Burkett Unavailable [phone] Allergies Allergen (clinical drug ingredient) Drug/Non Drug [...] W/U Status Risk Notes Problem Plantar wart ([id number]) Plantar wart (B07.0) Active confirmed Problem [id number] Hammer toe of left foot (M20.42) Active confirmed Plan Of Treatment Pending Test Test Name Order Date X ray : Foot, left 3V 03/31/2018 [id number] Plate 03/31/2018 Insurance Providers Payer Name Payer Address Payer Phone Subscriber Number Group Number Insured Name Patient Relationship to Insured Coverage Start Date Coverage End Date [facility] [address] [place] [address] [id number] Marija Tompkins Self - patient is the insured Medical (General) History Medical History History ICD Code Arthritis asthma Back,Hip,and Knee pain Headaches/Migraines High blood pressure Sciatica Vascular phlebitis (clots) Surgical History Surgery Date(Month/Year) Hospitalization History Reason Date(Month/Year) [facility] 04/2018
== END 2024-10-25 12:55 | disposition home or self-care (01) ==
LOC: HO.HMCC 11:43
PROVIDERS: PCP Internal Medicine; Visit Provider Internal Medicine
DX: R05.9 Cough, unspecified (principal); J45.909 Unspecified asthma, uncomplicated

== ENCOUNTER 2024-10-25 11:42 | Outpatient (REF) | payer BC, SELFPAY ==
--- NOTE | ~2024-10-25 | XR_ITS ---
EXAMINATION: XR CHEST CLINICAL INFORMATION: R05.9 - Cough, unspecified COMPARISON: March 23, 2024. TECHNIQUE: 2 views of the chest were obtained. FINDINGS: No hyperinflation. Pulmonary reticular pattern. No consolidation pleural effusion or pneumothorax. Cardiomediastinal silhouette demonstrates a round opacity in the center lower heart. Tortuosity of the thoracic spine. Multilevel thoracolumbar spondylosis and kyphotic deformity. Osteopenia versus osteoporosis. XR/XR chest 2V IMPRESSION: No acute airspace disease. Probable hiatal hernia, moderate volume. Electronically signed by: Dieter Blas MD 10/25/2024 03:02 PM EDT
--- OUTSIDE RECORDS SUMMARY | 2024-10-25 15:14 | XMS_ITS | Clinical Summary ---
Author Organization [facility] Address [address] [place] [address] Care Team Providers Care Medical Records Administrator Name Role Phone Gogo Grier MD Primary Care Provider [phone] Allergies Active Allergy Reactions Criticality Noted Date [...] History Surgery Date Site/Laterality Comments SECTION PROCEDURE: NE DELIVERY ONLY HERNIA REPAIR PROCEDURE: NE REPAIR FIRST ABDOMINAL WALL HERNIA Social History [...] Description 11/28/2024 9:20 AM EDT Office Visit [facility] [address] [place] [address] Trent Mandujano MD [address] [place] [address] [address],[facility] [address] [place] [address] Health Maintenance Due Date Last Done Comments [...] patient's age to complete this topic Insurance [facility] Care Teams Medical Records Administrator Relationship Specialty Start Date End Date Gogo Grier MD PCP - General 12/03/17
== END 2024-10-25 11:43 | disposition home or self-care (01) ==
LOC: HO.HMGCX 11:42
PROVIDERS: PCP Internal Medicine; Visit Provider Internal Medicine
DX: J45.909 Unspecified asthma, uncomplicated (principal); R05.9 Cough, unspecified
CPT/HCPCS: 71046

== ENCOUNTER → 2024-10-25 13:04 | Outpatient (BNV) | payer BC, SELFPAY | PROVIDERS: PCP Internal Medicine; Visit Provider Radiology Diagnostic Radiology | DX: R05.9 Cough, unspecified (principal) | CPT/HCPCS: 71046 ==

== ENCOUNTER 2025-01-25 08:29 | Outpatient (REF) | payer OTHER, SELFPAY ==
--- NOTE | 2025-01-25 08:50 | PFT_ITS ---
Flows: FEV1: 68 % of predicted at 1.34 L FVC: 65 % of predicted at 1.68 L FEV1/FVC: 80 % Bronchodilator response: Patient declined bronchodilator treatment. Volumes: Total lung capacity: 76 % of predicted at 3.72 L Residual volume: 96 % of predicted at 2.04 L Slow vital capacity: 63 % of predicted at 1.68 L Expiratory reserve volume: 37 % of predicted at 0.24 L Diffusion capacity: Mildly decreased, corrects to normal after adjustment for alveolar ventilation. Impression: Moderate restrictive ventilatory defect. Patient declined bronchodilator treatment. Decreased expiratory reserve volume suggests extrathoracic restriction likely secondary to abdominal obesity. Combination of restrictive ventilatory defect with decreased diffusion capacity suggests pulmonary parenchymal disease. Clinical correlation is advised. MTDD
== END 2025-01-25 08:30 | disposition home or self-care (01) ==
LOC: HO.RESP 08:29
PROVIDERS: PCP Internal Medicine; Visit Provider Internal Medicine
DX: J45.909 Unspecified asthma, uncomplicated (principal)
CPT/HCPCS: 94010; 94727; 94729

== ENCOUNTER → 2025-01-25 08:50 | Outpatient (BNV) | payer OTHER, SELFPAY | PROVIDERS: PCP Internal Medicine; Visit Provider Internal Medicine Pulmonary Disease | DX: J45.909 Unspecified asthma, uncomplicated (principal) | CPT/HCPCS: 94060; 94727; 94729 ==

== ENCOUNTER 2025-02-10 11:59 | Outpatient (AMB) | payer OTHER, SELFPAY ==
[2025-02-10 12:02] VITALS: BP 124/72; PULSE 63; RESP 18; TEMP 36.7; O2SAT 98
--- NOTE | 2025-02-10 12:02 | MHC.PC.OV ---
Vital Signs 02/10/25 12:02 Height 5 ft 4 in BMI Reason not done Patient refused/unable BP 124/72 Blood Pressure Location Lt brachial Position Sitting Respiration 18 Pulse 63 Pulse Source Pulse Oximeter Temp 98.0 F Temp Source Oral Pulse Oximetry (%) 98 Oxygen Delivery Method Room Air Intake Visit Reasons: PE Allergies sulfamethoxazole (From Bactrim) Allergy (Mild, Verified 07/28/24 09:51) RASH trimethoprim (From Bactrim) Allergy (Mild, Verified 07/28/24 09:51) RASH Sulfa (Sulfonamide Antibiotics) Allergy (Unknown, Verified 07/28/24 09:51) rash amoxicillin Adverse Reaction (Unknown, Verified 07/28/24 09:51) nausea and vomiting lisinopril Adverse Reaction (Unknown, Verified 07/28/24 09:51) cough Medication List - Last Reconciled 02/10/25 by Gogo Grier MD codeine-guaifenesin 10-200 mg/5 mL 5 mL PO Q6H PRN ibuprofen 800 mg PO Q8H PRN metoprolol succinate ER 100 mg PO DAILY sumatriptan 20 mg/actuation (Imitrex) 20 mg intranasal Q2H PRN [Vitamin D (with calcium) 1 tab PO DAILY] Tobacco use date assessed: 10/25/24 Fall risk assessment: No Falls in past year Last assessed Fall Risk: 02/10/25 Dental Screening Dental Screen Date: 10/25/24 HPI PE HPI Details Pt presents for PE PFSH Medical History (Updated 02/10/25 @ 15:23 by Gogo Grier MD) Asthma Annual physical exam Hyperglycemia Hyperlipidemia Morbid obesity Atrial fibrillation Migraine Surgical History History of section History of incisional hernia repair S/P colon resection Family History Father CHF (congestive heart failure) Mother No problems noted. Son No problems noted. Son No problems noted. Social History Household Members: Other Housing: House Do you presently have visiting nurse or other home services: No Alcohol intake: never Patient Tobacco Use Status: Never used Tobacco e-Cigarette/Vaping Use: Never Used service: No Current occupational status: employed Cognitive needs: No Hearing needs: No Vision needs: Yes Questionnaire PHQ-9 Over the last 2 weeks, how often have you been bothered by any of the following problems? 1. Little interest or pleasure in doing things: not at all 2. Feeling down, depressed, or hopeless: not at all 3. Trouble falling or staying asleep, or sleeping too much: not at all 4. Feeling tired or having little energy: not at all 5. Poor appetite or overeating: not at all 6. Feeling bad about yourself - or that you are a failure or have let yourself or your family down: not at all 7. Trouble concentrating on things, such as reading the newspaper or watching television: not at all 8. Moving or speaking so slowly that other people could have noticed. Or the opposite - being so fidgety or restless that you have been moving around a lot more than usual: not at all 9. Thoughts that you would be better off or of hurting yourself in some way: not at all Total score: 0 Depression Screening Interpretation: Negative Depression Screening Done: Yes 98926 - PHQ-9 Billing: Yes Source: Developed by Drs. González Rubi, Tuyet Cabello, Constantine Bernal and colleagues, with an educational yesica from [employer]). Thrive Questionnaire Date Thrive assessed: 10/25/24 AUDIT C Alcohol Use Questionnaire (AUDIT-C) 1. How often do you have a drink containing alcohol?: Monthly or less 2. How many drinks containing alcohol do you have on a typical day when you are drinking?: 1 or 2 3. How often do you have six or more drinks on one occasion?: Never Total Score: 1 HE-7 AMB Questionnaire HE-7 Date HE - 7 assessed: 02/10/25 Feeling nervous, anxious, or on edge: 0 = Not at all Not being able to stop or control worryin = Not at all Worrying too much about different things: 0 = Not at all Trouble relaxin = Not at all Being so restless that it is hard to sit still: 0 = Not at all Becoming easily annoyed or irritable: 0 = Not at all Feeling afraid as if something awful might happen: 0 = Not at all Total HE-7 score (0-4 normal; 5-9 mild; 10-14 moderate; 15-21 severe): 0 Source: Developed by Drs. González Rubi, Tuyet Cabello, Constantine Bernal and colleagues, with an educational yesica from [employer]). HE-7 Assessment Billing HE-7 Assessment Tool: HE-7 Assessment 03422 Review of Systems Const All systems reviewed & are unremarkable except as noted in HPI and below Eyes Reports no additional complaints ENT Reports no additional complaints Card Reports no additional complaints Resp Reports no additional complaints GI Reports no additional complaints Reports no additional complaints Musc Reports no additional complaints Physical exam (Primary Care) Vital Signs: Last Vital Signs Temp 98.0 F 02/10/25 12:02 Pulse 63 02/10/25 12:02 Resp 18 02/10/25 12:02 BP 124/72 02/10/25 12:02 Pulse Ox 98 02/10/25 12:02 Oxygen Delivery Method Room Air 02/10/25 12:02 Tobacco/Smoking Status: Tobacco use Status Tobacco use date assessed 10/25/24 02/10/25 12:05 Patient Tobacco Use Status Never used Tobacco 02/10/25 12:05 e-Cigarette/Vaping Use Never Used 02/10/25 12:05 PHQ-9: PHQ-9 Score PHQ-9: Total score 0 02/10/25 12:42 Depression Screening Interpretation: Negative Thrive Assessment: Date of Thrive Assessment Date Thrive assessed 10/25/24 02/10/25 12:05 Const General: no acute distress HENMT Head: Yes normal to inspection Ears: hearing grossly normal bilaterally General nose exam: Normal external nose present Face and sinus: Yes normal facial exam Mouth: Normal oral and palatal mucosa present Throat: Yes posterior oropharynx normal Eyes General: appearance normal, both eyes and all related structures Neck Neck: Yes no lymphadenopathy and Yes supple Resp Effort & Inspection: normal respiratory effort Auscultation: clear to auscultation bilaterally Cardio Rhythm: regular rhythm Heart sounds: S1 normal heart sound present and S2 normal heart sound present GI Inspection: Yes normal to inspection Palpation (GI): Soft to palpation Percussion: Yes normal to percussion Auscultation: normal bowel sounds Coding Level of Care Code Est Pt Prev Care >65y(84277) Diagnoses Atrial fibrillation I48.91 Vitamin D deficiency E55.9 Vitamin B 12 deficiency E53.8 Morbid obesity E66.01 Annual physical exam Z00.00 Asthma J45.909 Additional Codes HE-7 Assessment Billing - HE-7 Assessment Tool: HE-7 Assessment 40425 ([id number]) PHQ-9 - 66957 - PHQ-9 Billing: Yes ([id number]) Assessment & Plan Assessment & Plan (1) Atrial fibrillation: Comment: f/u Dr. Mandujano, pt declined anticoagulation, in 2019, nl Echo Code(s): I48.91 - Unspecified atrial fibrillation Category: Medical Plan: Established with Cardiology, continue metoprolol patient declined anticoagulation (2) Vitamin D deficiency: Code(s): E55.9 - Vitamin D deficiency, unspecified Category: Medical Plan: Continue vitamin-D (3) Vitamin B 12 deficiency: Code(s): E53.8 - Deficiency of other specified B group vitamins Category: Medical Plan: Continue vitamin B12 (4) Morbid obesity: Code(s): E66.01 - Morbid (severe) obesity due to excess calories Category: Medical Plan: Decrease caloric intake increasing physical activity weight loss discussed with the patient (5) Annual physical exam: Comment: Patient refused colonoscopy mammogram and Pap smear Code(s): Z00.00 - Encounter for general adult medical examination without abnormal findings Category: Medical Plan: Check fasting blood work (6) Asthma: Comment: Controlled on Breo inhaler, PFTs January 2025 moderate restrictive ventilatory defect extrathoracic restriction due to abdominal obesity question pulmonary parenchymal disease Code(s): J45.909 - Unspecified asthma, uncomplicated Category: Medical Plan: Continue Breo, weight loss discussed with the pt, patient declined immunization Orders: Orders Complete Blood Count Auto Diff Today I48.91 - Unspecified atrial fibrillation Lipid Panel Today I48.91 - Unspecified atrial fibrillation TSH reflex Free T4 Today I48.91 - Unspecified atrial fibrillation Magnesium Today E53.8 - Deficiency of other specified B group vitamins, E55.9 - Vitamin D deficiency, unspecified Vitamin B12 and Folate Today E53.8 - Deficiency of other specified B group vitamins, E55.9 - Vitamin D deficiency, unspecified Vitamin D 25-OH Total Today E53.8 - Deficiency of other specified B group vitamins, E55.9 - Vitamin D deficiency, unspecified Comprehensive [place]. Panel Fast Today I48.91 - Unspecified atrial fibrillation Hemoglobin A1c Today I48.91 - Unspecified atrial fibrillation Medications: New Breo Ellipta 100-25 mcg/dose (fluticasone furoate-vilanterol) 1 inh inhalation DAILY 180 ea 3RF NS Discontinued codeine-guaifenesin 10-200 mg/5 mL Discontinued Reason: Doctor's Order 5 mL PO Q6H PRN 473 mL 0RF cough
--- OUTSIDE RECORDS SUMMARY | 2025-02-10 12:59 | XMS_ITS | Data Portability ---
Author Organization [place] [facility], [facility] Address [address] [place] [address] Care Team Providers Care Conservation Coordinator Name Role Phone SHEEBA RAMOS Contract Technician Assessment No assessment recorded. Plan of Treatment Reminders Order Date Submit Date Provider Last Modified By Organization Details Last Modified Time Details Appointments None recorded. Lab None recorded. Referral occupationa l therapist referral - Diagnosis:G rade 3 RCL MCP rt middle finger Custom molded hand base orthosis protecting rt middle finger MCP in mild flexion, prevent ulnar deviation 2023 024 [email or web address] Not available 13:28:13 Procedures None recorded. Surgeries None recorded. Imaging XR, hand, 3 or more view - 3v rt hand, radiator fitter, rm 118 2023 024 [email or web address] [facility], [address], [address], [place], [address], 13:28:13 XR, wrist, 3 or more view - 3v rt wrist, radiator fitter, rm 118 2023 024 [email or web address] [facility], [address], [address], [place], [address], 13:28:13 Medication Orders None recorded. Patient TargetsNo targets recorded. Patient Instructions Encounter Date Encounter Id Patient Instructions Last Modified By Organization Details Last Modified Time 05/16/2024 [id number] [facility] Custom Hand Orthosis Information Sheet [address] [place] [address] Name: Marija Tompkins Right Diagnosis: Middle finger MCP joint MCL ligament grade 3 sprain Orthosis Code: Finger Hand HFO L 3913 Orthosis Style: Hand-based MCP immobilization orthosis The PURPOSE for this custom orthosis is to: Provide stability and reduce movement at the middle finger MCP joint PRECAUTIONS to consider include: HEAT SOURCES: including, but not limited to, the manager summer, dryer, stove, furnace, heater, car (on a hot summer day). PETS: they like to chew the plastic. SKIN: watch for redness, blisters or any skin irritations. CLEANING: use warm soapy water, wipes or log haul operator to keep the plastic clean, cotton socks [...] orthosis has been custom fabricated by: Ludmila DELEON/L, CHT I understand the purpose, precautions and plan for this custom orthosis Patient Signature: [email or web address] Not available 05/16/2024 12:06:16 Reason for Referral [...] a4ajBk vP9nXo QUaueC m3YtLR FvZlgJ JJ8mAn HZtai3 5g3876 AC0Kqa 32GV6e lKiQtr MwF INTERFACE [facility] [address], [place], [address], 05/16/2024 11:42:23 05/16/20 24 05/16/2024 XR, hand, 3 or more view [email or web address] ?Encry pted=s hAaTro YD8dLq bEUv6g %2BXZw aYqtaq 0bqfl% 2Fg9IQ a4ajBk vP9nXo QUaueC m3YtLR FvZlJ JJ8mAn HZtai3 0q4356 AC0Kqa 32GV6e lKiQtr MwF INTERFACE [facility] [address], [place], [address], 05/16/2024 11:42:26 05/16/20 24 05/16/2024 XR, wrist , 3 or more view [email or web address] ?Encry pted=s hAaTro YD8dLq bEUv6g %2BXZw aYqtaq 0bqfl% 2Fg9IQ a4ajBk vP9nXo QUaueC m3YtLR FvZlgJ JJ8mAn HZtai3 9o3371 AC0Kqa 32GV6S mKiQtr MwF INTERFACE [facility] [address], [place], [address], 05/16/2024 11:46:09 05/16/20 24 05/16/2024 XR, wrist , 3 or more view [email or web address] ?Encry pted=s hAaTro YD8dLq bEUv6g %2BXZw aYqtaq 0bqfl% 2Fg9IQ a4ajBk vP9nXo QUaueC m3YtLR FvZlgJ JJ8mAn HZtai3 2o1146 AC0Kqa 32GV6S mKiQtr MwF INTERFACE [facility] [address], [place], [address], 05/16/2024 11:46:11 Result Notes Documentation Provider Name and Address Organization Details Recorded Time Xr, Hand, 3 Or More View : [email or web address] Encrypted=vkNeQcmQD3dYxlF Uv6g%9YRMmaSvvsg7fecl%2Fg 8MNh2nlAgoG8lKoRYnidAw5Dh CERfTmyDYW7wPcJZkdy74z977 3EU9Peu66JO2gqByRfgVcD Not Available [facility] 05/16/2024 11:42: 24 Xr, Hand, 3 Or More View : [email or web address] Encrypted=cdUrKloNA1sNidS Uv6g%2LKGajFtepz6ekjq%2Fg 5UEf0skUjmV4bFmLIlljYh9Sn PVFtBmpVVJ0oArJHgii38n458 5GL4Hkv96NV1hzKjOuaSbM Not Available [facility] 05/16/2024 11:42: 26 Xr, Wrist, 3 Or More View : [email or web address] Encrypted=uhRyAzyXZ0iGooK Uv6g%7TGGxfOsqlm1auld%2Fg 5NXp8jeDdwP8gHkUBbqfCu9Zf AQRzHroOID1vWaUOqyu96q476 7ET7Odl15MC4QoNsFdeHxY Not Available [facility] 05/16/2024 11:46: 10 Xr, Wrist, 3 Or More View : [email or web address] Encrypted=ovZnEccGS1fGyoK Uv6g%2IHVshNprhy5gbnu%2Fg 5VGk8hmQeyL4lQtMOjqpCd3Gt IJMhFouNYR1fLuXWerf66y498 6HE3Aqf07HW5EjJzQshVtT Not Available [facility] 05/16/2024 11:46: 12 Medical Equipment None Reported. Allergies Allergen ID Allergen Name Allergen Category Reaction Reaction Severity Criticality Documentation Date Start Date Code Code System Note Provider Name and Address Organization Details Recorded Time 43880 Substance with sulfonami de structure and antibacte rial mechanism of action (substanc e) medicatio n Not available Not available Not available 10/19/20232005 33866 8003 SNOMED Aller gyRea ction : 'Skin React ion'; Not Available [facility] 13:51:52 06708 Bactrim medicatio n Not available Not available Not available 10/19/20232011 22050 9 RxNorm Aller gyRea ction : 'Skin React ion'; Not Available [facility] 13:51:52 Medications Name Sig Start Date Stop Date Status Note LastModified by Organization Details LastModified Time metoprolol succinate ER 100 mg tablet,exte nded release 24 hr TAKE 1 TABLET DAILY BY INGENUS active Not Available Not Available No t [...] Last Updated DateTime 08/19/2024 162.56 cm RAJ Pastrana [facility] 08/19/2024 09:18:39 Date Recorded Body height Provider Name an d Address Organization Details Last Updated DateTime 05/16/2024 162.56 cm RAJ HAIRSTON [facility] Victoriano [facility] 05/16/2024 13:30:15 Date Recorded Body height Provider Name an d Address Organization Details Last Updated DateTime 07/01/2024 162.56 cm YECENIA OHARA [facility] 07/01/2024 09:36:56 Social History None recorded. Functional Status None recorded. Mental Status None recorded. Family History Nothing Reported. Medical History No medical history recorded. Gynecological HistoryNo gynecological history recorded. Obstetrics History GPAL:G 0 P 0 0 0 0 Past Encounters Encounter ID Performer Location Encounter Start Date Encounter Closed Date Diagnosis/Indication Diagnosis SNOMED-CT Code Diagnosis ICD10 Code Diagnosis Note [id number] Joshua Evans MD [facility] [address] [facility] [address] [place] [address] 05/16/2024 11:12:23 06/11/2024 06:39:21 Pain in right hand 1886147247 52141 M79.641 Pain of right wrist 3169 072566 75134 M25.531 Injury of extensor tendon of hand 674648581 S66.801A Sprain fin rea, metacarpophalangeal joint, radial collateral ligament 914070837 S63.652A [id number] Ludmila Leblanc, OTR/L,CHT [facility] [address] [facility] [address] [place] [address] 05/16/2024 12:00:33 05/16/2024 12:36:15 Injury of extensor tendon of hand 189914528 S66.801A Today to protect the injured finger [...] maintain alignment of the involved structures . [id number] Elan Hawkins PA-C [facility] [address] [place], [place] [address] 07/01/2024 09:14:14 07/19/2024 14:13:14 Osteoarthritis of finger joint of right hand 5663632418 5079313 M19.738 [id number] Ludmila Leblanc, OTR/L,CHT [facility] [address] [place] [address] 07/04/2024 10:17:16 07/04/2024 10:30:46 Sprain of ligament of metacarpophalangeal joint of right middle finger 1915029045 6236588 S63.652D The previous custom orthosis that I [...] been provided some Coban by the physician content assistant. I have provided the patient today with a jesús loop that she could easily remove for hand hygiene and then reapplied. She finds this to be more comfortabl e than the Coban tape. With further discussion about her daily routine activities at home and after work. I am recommendi ng that she begin to allow this right [...] itis of finger joint of right hand 8071063433 1955335 M15.1 Further discussion with this patient and [...] specifical ly with tripod pinch as in handwritin g. The interestin g anatomical analysis finds that with a tripod [...] Such modificati ons would include a larger vault service mechanic pen. [id number] MD JULIEN Johnson [facility] [address] [place] [address] 08/19/2024 09:05:34 09/05/2024 14:48:53 Sprain of ligament of metacarpophalangeal joint of right middle finger 0549644663 1313077 S63.652D Health Concerns Section Related Observation LastModified by Organization Detai ls LastModified Time None Recorded Concern Status LastModified by Organization Details LastModified Time None Recorded Advance Directives Directive None Recorded Payers Insurance Date Sequence Insurance Name Policy Number Policy Pope Covered Member ID Pope Member ID Guarantor Name 06/15/2024 [employer] Marija Cantrell Turner 06/15/2024 [facility] Marija Tompkins Notes Date Note Type Note Provider Name and Address Organization Details Recorded Time 05/16/2024 text/html Diagnosis: Grade 3 RCL injury MCP joint right middle [id number] female who injured her right hand when [...] reviewed, updated and is located in the patient s chart.Examination: Healthy appearing patient in no [...] digitsX-rays ordered, obtained, and reviewed today at [facility]: PA, lateral, oblique views of the right [...] follow up as directed. Joshua Evans MD [address], [place], [address], [facility] 05/18/2024 08:00:37 05/16/2024 text/html recent fall at w ork injured right hand, saw Dr Evans today. This patient has a grade 3 MCL sprain of the MCP joint of the right middle finger Ludmila Leblanc, OTR/L,CHT [address], [place], [address], [facility] 05/16/2024 12:36:09 07/01/2024 text/html I am seeing the patient under the general supervision of Dr. Evans diagnosis: Grade 3 RCL injury MCP joint right middle finger May 02, 2024Severe DIP joint osteoarthritis right middle [id number] female who injured her right hand when [...] reviewed, updated and is located in the patient s chart.Examination: Alert and oriented x 3. [...] in 4 to 6 weeks for reexamination. JOE Greene-Janelle [address], [place], [address], [facility] 07/01/2024 10:07:11 07/01/2024 text/html 05/02/24 fall at work injured right hand, saw Dr Evans 05/16/24 who diagnosed a grade 3 MCL sprain of the MCP joint of the right middle finger. Was referred for a custom orthosis to protect the ligament. pt returns to the office today to meet with the JOE to assess the recovery at 6 weeks post injury . Subsequently, she is referred for DME for further consultation on the overall recovery to include the DIP joint pain as well. Ludmila Leblanc, OTR/L,CHT [address], [place], [address], [facility] 07/04/2024 10:30:29 08/19/2024 text/html Diagnosis:1. Sev ere osteoarthritis right hand 2. Grade 3 RCL injury right middle finger MCP joint resolved The patient presents at our request. She is continue describing pain in her finger secondary to arthritis. Past family, medical, social history and review of systems has been reviewed, updated and is located in the patient s chart. Examination: Healthy appearing patient in [...] at her discretion. Joshua Evans MD [address], [place], [address], [facility] 08/19/2024 10:21:22 OBGyn Episode No OBEpisode recorded.
== END 2025-02-10 13:03 | disposition home or self-care (01) ==
PROVIDERS: PCP Internal Medicine; Visit Provider Internal Medicine
DX: Z00.00 Encounter for general adult medical examination without abnormal findings (principal); I48.91 Unspecified atrial fibrillation; E66.01 Morbid (severe) obesity due to excess calories; E55.9 Vitamin D deficiency, unspecified; E53.8 Deficiency of other specified B group vitamins; J45.909 Unspecified asthma, uncomplicated

== ENCOUNTER → 2025-02-10 11:59 | Outpatient (BNVA) | payer OTHER, SELFPAY | PROVIDERS: PCP Internal Medicine; Visit Provider Internal Medicine | DX: Z00.00 Encounter for general adult medical examination without abnormal findings (principal); I48.91 Unspecified atrial fibrillation; E55.9 Vitamin D deficiency, unspecified; E53.8 Deficiency of other specified B group vitamins; E66.01 Morbid (severe) obesity due to excess calories; J45.909 Unspecified asthma, uncomplicated | CPT/HCPCS: 96127 ==

== ENCOUNTER 2025-02-14 10:09 | Outpatient (REF) | payer OTHER, SELFPAY ==
--- OUTSIDE RECORDS SUMMARY | 2023-05-12 11:30 | XMS_ITS | Continuity of Care Document ---
Author Organization [facility] Address [address] [place] [address] Phone Care Team Providers Care Professional Organizer Name Role Phone Ye SCOTT FACS RVT Emanuel KELLY Unavailable Unavailable Allergies, Adverse Reactions, Alerts Substance Reaction Status Criticality PENICILLIN Active No Information trimethoprim Active No Information sulfamethoxazole Active No Informat ion Medications Medication Instructions Dosage Effective Dates (start - stop) Status Comments Excedrin Extra Strength 250 mg-250 mg-65 mg tablet - Active IBUPROFEN (unknown strength) take 1 capsule by oral route every 6 hours as needed Not Available - Active IMITREX (unknown strength) Not Available - Active ZYRTEC (unknown strength) Not Available - Active METOPROLOL SUCCINATE (unknown strength) Not Available - Active Procedures Procedure Date Office/Outpt E&M Established 15 Mins Apr Office/Outpt E&M Established 15 Mins Mar Office/Outpt E&M Established 15 Mins December Duplex Scan-extrem Veins; Comp Offic Cons New/estab Mod-hi 60 Advance Directives Directive Yes / No Effective Date File Name No Information Encounters Encounter Description Practice Location Reason(s) For Visit Diagnoses Date Provider Providers Copied on Encounter Office/Outpt E&M Established 15 Mins [facility], [address], [place], [id number], [place] tel:[phone] CVR - [facility] Chronic venous htn w oth comp of bilateral low extrm 3 Ye SCOTT FACS Scot Thurston. [address], [address], [place], [address], [place]. tel:[phone] Referring Provider: Gogo Grier MD S, [address] [place] [address], [place], [address]. tel:[phone] Office/Outpt E&M Established 15 Mins [facility], [address] [place] [address] Dr Jeffrey [address], [id number], [place] tel:[phone] [facility] - [place] [facility] [place] Chronic venous htn w oth comp of bilateral low extrm 3 Ye SCOTT FACS Scot Thurston. [address] [facility], [address] [facility], [place], [address], [place]. tel:[phone] Referring Provider: Gogo Grier MD S, [address] [place] [address], [place], [address]. tel:[phone] Office/Outpt E&M Established 15 Mins [facility], [address] [place] [address] [address], [id number], [place] tel:[phone] [facility] [place] [facility] [place] Venous insufficiency (chronic) (peripheral) 3 Ye SCOTT FACS Scot Thurston. [address] [place] [address], Suite [facility], [place], [address], [place]. [phone] Referring Provider: Gogo Grier MD S, [address] [place] [address], [place], [address]. tel:[phone] [facility], [address] [place] [address] [address], [id number], [place] tel:[phone] [facility] [place] Venous insufficiency (chronic) (peripheral)Zbigniew n in right legPain in left leg 3 Ye SCOTT FACS Scot Thurston. [address] [facility], [address], [place], [address], [place]. tel:[phone] Referring Provider: Gogo Grier MD S, [address] [place] [address] Drive, [place], [address]. tel:[phone] Offic Cons New/estab Mod-hi 60 [facility], [address], [place], [id number], [place] tel:[phone] [facility] [place] [facility] [place] Essential (primary) hypertensionPru ritus, unspecifiedVeno us insufficiency (chronic) (peripheral)Loc alized edema 3 Ye SCOTT FACS RVT RP Emanuel Thurston. [address] [facility], [address], [place], [address], [place]. tel:[phone] Referring Provider: Gogo Grier MD S, [address] [place] [address], [place], [address]. tel:[phone] Family History Family Member Type Diagnosis Age At Onset No Information Payers Payer name Insurance type Covered democrat ID [facility] [id number] Social History Type Description Quantity Date Captured Comments Alcohol Use Details No Caffeine Use Details Unknown Tobacco Use Status Smoking Status Smoker, current stat unknown Non-Smoking Tobacco Use Details : No Details Available : No Details Available Sex Female Chief Complaint And Reason For Visit No Information Reason For Referral Reason For Referral No Information Plan Of Treatment Date Type Action Status Goal Tobacco cessation counseling completed Goal Tobacco cessation counseling completed Goal Tobacco cessation counseling completed Goal Diet education completed Goal Tobacco cessation counseling completed Referral Ordered: Weight management: Referral to physician timeframe: 3 Months (related to Body mass index (BMI) 34.0-34.9, adult) ordered History Of Present Illness Encounter Date Complaint History Of Prese nt Illness No Information Functional Status Date Functional Assessmen t No Information Instructions Date Instruction Additional Infor mation Diet education Related to Body mass index (BMI) 34.0-34.9, adult Giving Encouragement to exercise Related to Body mass index (BMI) 34.0-34.9, adult Lifestyle education Related to B holly mass index (BMI) 34.0-34.9, adult Patient education booklet given Related to Venous insufficiency (chronic) (peripheral) Compression stocking usage as conservative measure Related to Venous insufficiency (chronic) (peripheral) Assessments Type Assessment Date assessment Chronic venous htn w oth comp of bilateral low extrm Patient Care Teams Name Effective Dates (start - stop) Status Members No Information
--- OUTSIDE RECORDS SUMMARY | 2025-02-14 11:14 | XMS_ITS | Data Portability ---
Author Organization [place] [facility] Address [address] [place] [address] Care Team Providers Care Slot Technician Name Role Phone SHEEBA RAMOS Drawing Box Tender [phone] Assessment No assessment recorded. Plan of Treatment [...] or more view - 3v rt hand, financial management, rm 118 2023 024 [email or web address], [address], [address], [place], [address], 13:28:13 XR, wrist, 3 or more view - 3v rt wrist, financial management, rm 118 2023 024 [email or web address], [address], [address], [place], [address], 13:28:13 Medication Orders None recorded. Patient TargetsNo targets recorded. Patient Instructions Encounter Date Encounter Id Patient Instructions Last Modified By Organization Details Last Modified Time 05/16/2024 [id number] [facility] Custom Hand Orthosis Information Sheet [address] [place] [address] Name: Marija Tompkins Right Diagnosis: Middle finger MCP joint MCL ligament grade 3 sprain Orthosis Code: Finger Hand HFO L 3913 Orthosis Style: Hand-based MCP immobilization orthosis The PURPOSE for this custom orthosis is to: Provide stability and reduce movement at the middle finger MCP joint PRECAUTIONS to consider include: HEAT SOURCES: including, but not limited to, the primary operator, dryer, stove, furnace, heater, car (on a hot summer day). PETS: they like to chew the plastic. SKIN: watch for redness, blisters or any skin irritations. CLEANING: use warm soapy water, wipes or cut and print machine operator to keep the plastic clean, cotton [...] plan for this custom orthosis Patient Signature: [email or web address] Not available 05/16/2024 12:06:16 Reason for Referral [...] a4ajBk vP9nXo QUaueC m3YtLR FvZlgJ JJ8mAn HZtai3 6z3890 AC0Kqa 32GV6e lKiQtr MwF INTERFACE [facility] [address], [place], [address], 05/16/2024 11:42:23 05/16/20 24 05/16/2024 XR, hand, 3 or more view [email or web address] ?Encry pted=s hAaTro YD8dLq bEUv6g %2BXZw aYqtaq 0bqfl% 2Fg9IQ a4ajBk vP9nXo QUaueC m3YtLR FvZlJ JJ8mAn HZtai3 2a9019 AC0Kqa 32GV6e lKiQtr MwF INTERFACE [facility] [address], [place], [address], 05/16/2024 11:42:26 05/16/20 24 05/16/2024 XR, wrist , 3 or more view [email or web address] ?Encry pted=s hAaTro YD8dLq bEUv6g %2BXZw aYqtaq 0bqfl% 2Fg9IQ a4ajBk vP9nXo QUaueC m3YtLR FvZlgJ JJ8mAn HZtai3 8r8202 AC0Kqa 32GV6S mKiQtr MwF INTERFACE [facility] [address], [place], [address], 05/16/2024 11:46:09 05/16/20 24 05/16/2024 XR, wrist , 3 or more view [email or web address] ?Encry pted=s hAaTro YD8dLq bEUv6g %2BXZw aYqtaq 0bqfl% 2Fg9IQ a4ajBk vP9nXo QUaueC m3YtLR FvZlgJ JJ8mAn HZtai3 0s9126 AC0Kqa 32GV6S mKiQtr MwF INTERFACE [facility] [address], [place], [address], 05/16/2024 11:46:11 Result Notes Documentation Provider Name and Address Organization Details Recorded Time Xr, Hand, 3 Or More View : [email or web address] Encrypted=wsPpSlaFD1oIwlU Uv6g%4FUJpwMfcdj3uttv%2Fg 3AHd6trLguX2ePfCFwrwVd2Zy GVXwWogUUA0uBtHPfvc29s942 3ZI2Djc06FR7emDzOknGhB Not Available [facility] 05/16/2024 11:42: 24 Xr, Hand, 3 Or More View : [email or web address] Encrypted=lyIvZvlVB7uDxgK Uv6g%6BTBoiUeorj1tuns%2Fg 1ZQe4ecGzvE2hTwHDnlnTn8Vc AHAyRylQMG4gQgNMsxn63n493 3KQ5Pnl11MW8ovWxCzvViA Not Available [facility] 05/16/2024 11:42: 26 Xr, Wrist, 3 Or More View : [email or web address] Encrypted=qtGuDfrEG6pFdhU Uv6g%7FILyxCymwu4kyvi%2Fg 2VZe4miOjcK1dUcYIbnnTr8Hr VODoNyxZPQ4kGqFKtfh99x118 0GM3Mxp65IA7DgAyXzqIeS Not Available [facility] 05/16/2024 11:46: 10 Xr, Wrist, 3 Or More View : [email or web address] Encrypted=mqCyKytET4uDdpZ Uv6g%7PKPkbImwch1fajy%2Fg 1RTl0gaAozV0hRnUDhweXz3Ok UBNfPuiJLV6iOaQYlpt96b970 4TJ5Yih22XZ9QeMdMnvExG Not Available [facility] 05/16/2024 11:46: 12 Medical Equipment None Reported. Allergies Allergen ID Allergen Name Allergen Category Reaction Reaction Severity Criticality Documentation Date Start Date Code Code System Note Provider Name and Address Organization Details Recorded Time 32112 Substance with sulfonami de structure and antibacte rial mechanism of action (substanc e) medicatio n Not available Not available Not available 10/19/20232005 88100 8003 SNOMED Aller gyRea ction : 'Skin React ion'; Not Available [facility] 13:51:52 30615 Bactrim medicatio n Not available Not available Not available 10/19/20232011 99394 9 RxNorm Aller gyRea ction : 'Skin React ion'; Not Available [facility] 13:51:52 Medications Name Sig Start Date Stop [...] Updated DateTime 08/19/2024 162.56 cm RAJ Past[facility] 08/19/2024 09:18:39 Date Recorded Body height Provider Name an d Address Organization Details Last Updated DateTime 05/16/2024 162.56 cm RAJ HAIRSTON [facility] [place] [facility] 05/16/2024 13:30:15 Date Recorded Body height Provider Name an d Address Organization Details Last Updated DateTime 07/01/2024 162.56 cm YECENIA OHARA [facility] Christina [facility] 07/01/2024 09:36:56 Social History None recorded. Functional Status None recorded. Mental Status None recorded. Family History Nothing Reported. Medical History No medical history recorded. Gynecological HistoryNo gynecological history recorded. Obstetrics History GPAL:G 0 P 0 0 0 0 Past Encounters Encounter ID Performer Location Encounter Start Date Encounter Closed Date Diagnosis/Indication Diagnosis SNOMED-CT Code Diagnosis ICD10 Code Diagnosis Note [id number] Joshua Evans MD [facility] [address] [place] [address] 05/16/2024 11:12:23 06/11/2024 06:39:21 Pain in right hand [id number] 69303 M79.641 Pain of right wrist 3169 417897 72409 M25.531 Injury of extensor tendon of hand 695800314 S66.801A Sprain fin rea, metacarpophalangeal joint, radial collateral ligament 838292322 S63.652A [id number] Ludmila Leblanc, OTR/L,CHT [facility] [address] [place] [address] 05/16/2024 12:00:33 05/16/2024 12:36:15 Injury of extensor tendon of hand 245230130 S66.801A Today to protect the injured finger [...] maintain alignment of the involved structures . [id number] Elan Hawkins PA-C [facility] [address] [place], [place] [address] 07/01/2024 09:14:14 07/19/2024 14:13:14 Osteoarthritis of finger joint of right hand 8801507173 0744647 M19.050 [id number] Ludmila Leblanc, OTR/L,CHT [facility] [address] [place] [address] 07/04/2024 10:17:16 07/04/2024 10:30:46 Sprain of ligament of metacarpophalangeal joint of right middle finger 2335278153 1695603 S63.652D The previous custom orthosis that I [...] been provided some Coban by the physician fitter's assistant. I have provided the patient today [...] itis of finger joint of right hand 4265148257 2133103 M15.1 Further discussion with this patient and [...] Such modificati ons would include a larger tool straightener pen. [id number] MD JULIEN Johnson - [facility] [address] [place] [address] 08/19/2024 09:05:34 09/05/2024 14:48:53 Sprain of ligament of metacarpophalangeal joint of right middle finger [id number] 0673542 S63.652D Health Concerns Section Related Observation LastModified by Organization Detai ls LastModified Time None Recorded Concern Status LastModified by Organization Details LastModified Time None Recorded Advance Directives Directive None Recorded Payers Insurance Date Sequence Insurance Name Policy Number Policy Pope Covered Member ID Pope Member ID Guarantor Name 06/15/2024 [facility] Cantrell Turner 06/15/2024 [facility] Marija Tompkins Notes Date Note Type Note Provider Name and Address Organization Details Recorded Time 05/16/2024 text/html Diagnosis: Grade 3 RCL injury MCP joint right middle -mhdk-tww female who injured her right hand when [...] digitsX-rays ordered, obtained, and reviewed today at [facility]: PA, lateral, oblique views of the right [...] up as directed. Joshua Evans MD [address], [place], [address], [facility] 05/18/2024 08:00:37 05/16/2024 text/html [facility] fall [facility] injured right hand, saw Dr Evans today. This patient has a grade 3 MCL sprain of the MCP joint of the right middle finger Ludmila Leblanc, OTR/L,CHT [address], [place], [address], [facility] 05/16/2024 12:36:09 07/01/2024 text/html I am seeing the patient under the general supervision of Dr. Evans diagnosis: Grade 3 RCL injury MCP joint right middle finger May 02, 2024Severe DIP joint osteoarthritis right middle -xcdz-dei female who injured her right hand when [...] 6 weeks for reexamination. JOE Greene-Janelle [address], [place], [address], [facility] 07/01/2024 10:07:11 07/01/2024 text/html 05/02/24 fall [...] pain as well. Ludmila Leblanc, OTR/L,CHT [address], [place], [address], [facility] 07/04/2024 10:30:29 08/19/2024 text/html Diagnosis:1. Sev [...] at her discretion. Joshua Evans MD [address], [place], [address], [facility] [place] [facility] 08/19/2024 10:21:22 OBGyn Episode No OBEpisode recorded.
--- OUTSIDE RECORDS SUMMARY | 2025-02-14 11:14 | XMS_ITS | Clinical Summary ---
Author Organization [facility] Address [address] [place] [address] Phone Care Team Providers Care Bindery Manager Name Role Phone Gogo Grier MD Primary Care Provider [phone] Allergies Active Allergy Reactions Criticality Noted Date Comments Amoxicillin 11/29/2020 Lisinopril 11/29/2020 Cough Sulfamethoxazole 11/29/2020 rash Trimethoprim 11/29/2020 Medications metoprolol succinate (TOPROL-XL) 100 mg 24 hr tablet Take 1 tablet (100 mg total) by mouth 1 (one) time each day. 01/04/2024 Active ibuprofen (ADVIL,MOTRIN) 200 mg tablet Take 800 mg by mouth as needed. Active cetirizine (ZyrTEC) 10 mg capsule daily. 12/06/2017 Active aspirin/acetamin ophen/caffeine (EXCEDRIN MIGRAINE ORAL) Take 250 mg by mouth as needed. Active cholecalciferol (VITAMIN D-3) 50 mcg (2,000 unit) tablet Take 2,000 mg by mouth daily. Active Active Problems Problem Noted Date Diagnosed Date Dyspnea on exertion 12/03/2023 Assessment & Plan (11/28/2024 1:15 PM EDT): No CHF. To have PFT's in 2 weeks in [place]. She has occasional wheezes. She will need to avoid intense cardiac stimulation from bronchodilators if these are considered in the future. Orders: ECG 12 lead Obesity (BMI 35.0-39.9 without comorbidity) 09/2021 Assessment & Plan (11/28/2024 1:15 PM EDT): Patient continues to have obesity without major intervention. She is reading about semaglutide but is not inclined to give herself a shot. We had a long discussion regarding ways to maintain her present situation we will be writing a narrative to which she has stubbornly adhered. Orders: ECG 12 lead Afib (CMS/HCC V24, CMS/HCC V28) 11/29/2020 Overview (11/25/2024): Initially highly symptomatic with frequent recurrences associated with syncope at extremely rapid rates, favorable response to metoprolol. Patient stopped anticoagulant therapy several years ago. Assessment & Plan (11/28/2024 1:15 PM EDT): Patient has a history of highly symptomatic paroxysmal atrial fibrillation resulting in multiple episodes of syncope due to atrial fibrillation with extremely rapid ventricular response. Ultimately she had a superb response to metoprolol which has been well-tolerated. She is not having any clinical evidence of recurrent atrial fibrillation. She has been off of Eliquis for at least 3 years. She reports only extremely rare and fleeting palpitations lasting less than 5 seconds. She will continue on metoprolol for dysrhythmia suppression. 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 Orders: ECG 12 lead Primary hypertension 11/29/2020 Assessment & Plan (11/28/2024 1:15 PM EDT): Patient has a history of systemic hypertension. Her blood pressure to be elevated in the office setting. She has done home monitoring in the past but less so in the recent past. I encouraged her to keep an eye on her blood pressures and to stay on her present medical regimen. Orders: ECG 12 lead Encounters Date Type Department Care Team Description 12/28/2024 Telephone [facility] [address] [place] [address] Richard Escalante MD Injections 11/28/2024 9:20 AM EDT Office Visit [facility] [address] [place] [address] Richard Escalante MD Paroxysmal atrial fibrillation (CMS/HCC V24, CMS/HCC V28) (Primary Dx); Primary hypertension; Obesity (BMI 35.0-39.9 without comorbidity); Dyspnea on exertion; Deep vein thrombosis (DVT) of lower extremity, unspecified chronicity, unspecified laterality, unspecified vein (CMS/HCC V24, CMS/HCC V28) from Last 3 Months Surgical History Surgery Date Site/Laterality Comments SECTION PROCEDURE: OK DELIVERY ONLY HERNIA REPAIR PROCEDURE: [place] REPAIR FIRST ABDOMINAL WALL HERNIA Social History Tobacco Use Types Packs/Day Years Used Date Smoking Tobacco: Former Cigarettes Q uit: 08/17/1979 Smokeless Tobacco: Never Alcohol Use Standard Drinks/Week Comments Yes 0 (1 standard drink = 0.6 oz pure alcohol) one or two drinks on the weekend Comments Unknown Sex and Gender Information Value Date Recorded Sex Assigned at Not on file Legal Sex Female 4:09 PM EST Gender Identity Not on file Sexual Orientation Not on file Obstetrics History Last Filed Vital Signs Vital Sign Reading Time Taken Comments Blood Pressure 150/90 11/28/2024 9:55 AM EDT Pulse 65 11/28/2024 9:55 AM EDT Temperature - - Respiratory Rate - - Oxygen Saturation 97% 11/28/2024 9:55 AM EDT Inhaled Oxygen Concentration - - Weight - - Height 165.1 cm (5' 5 ) 11/28/2024 9:55 AM EDT Body Mass Index - - Plan of Treatment Health Maintenance Due Date Last Done Comments DTaP,Tdap,and Td Vaccines (1 - Tdap) 1965 Pneumococcal Vaccine: 50+ Ye ars (1 of 1 - PCV) 1996 Zoster Vaccines (1 of 2) 1996 RSV Immunization Adult Patie nts (1 - 1-dose 75+ series) 2021 Cholesterol Screening (Lipid Panel) 07/26/2022 Depression Screening 07/26/2022 Falls Risk Assessment 07/26/2022 Hepatitis C Screening 07/26/2022 Osteoporosis Screening (Bone Density Screening) 07/26/2022 Social Influencers of Health Screening 07/26/2022 Hypertension/CHF/CAD Annual BMP Blood Test 07/27/2022 COVID-19 Vaccine (2 2023-2 5 season) 2024 10/26/2020 Influenza Vaccine (Season Ended) 2025 HIB Vaccines Aged Out No longer eligi [...] age to complete this topic Meningococcal B Vaccine Aged Out No l onger eligible based on patient's age to complete this topic RSV Immunization Patients Un han 20 months Aged Out No longer eligible b ased on patient's age to complete this topic Varicella Vaccines Aged Out No longer eligible based on patient's age to complete this topic Procedures Procedure Name Priority Date/Time Associated Diagnosis Comments ECG 12-LEAD Routine 11/28/2024 10:07 AM EDT Paroxysmal atrial fibrillation (CMS/HCC V24, CMS/HCC V28) Primary hypertension Obesity (BMI 35.0-39.9 without comorbidity) Dyspnea on exertion Deep vein thrombosis (DVT) of lower extremity, unspecified chronicity, unspecified laterality, unspecified vein (CMS/HCC V24, CMS/HCC V28) from Last 3 Months Results * ECG 12 lead (11/28/2024 10:07 AM EDT) Ventricular Rate ECG 65 BPM GEMUSE Atrial Rate 60 BPM GEMUSE QRS Duration 70 ms GEMUSE Q-T Interval 390 ms GEMUSE QTc 405 ms GEMUSE R [place] 0 degrees GEMUSE T [place] 43 degrees GEMUSE ECG Interpretation Normal sinus rhythm Normal ECG When compared with ECG of 16-FEB-2008 10:46, No significant changes are noted Confirmed by RICHARD ESCALANTE ([id number]) on 11/28/2024 12:28:44 PM GEMUSE 11/28/2024 10:0 7 AM EDT 11/28/2024 12:28 PM EDT us Richard Escalante MD ECG ORDERABLES Final Result GEMUSE from Last 3 Months Insurance [facility] Care Teams Bindery Manager Relationship Specialty Start Date End Date Gogo Grier MD [address] [place] [address] PCP - General 12/03/17
--- OUTSIDE RECORDS SUMMARY | 2025-02-14 11:14 | XMS_ITS | Patient Health Record ---
Author Organization [facility] Address [address] [place] [address] Care Team Providers Care Pharmacy Director Name Role Phone Gogo Grier MD Primary Care Provider Shahla Burkett Unavailable [phone] Allergies Allergen (clinical drug ingredient) Drug/Non Drug Allergy documented on EMR Reaction Allergy Type Onset Date Status sulfamethoxazole / trimethoprim Bactrim hives Drug Allergy Active Reason For Referral No Information Medications Medication SIG (Take, Route, Frequency, Duration) Notes Start Date End Date Status Breo Ellipta 100-25 MCG/INH Inhalation; Duration: 90 Active Metoprolol Succinate 100 MG 1 capsule Or ally Once a day; Duration: 30 day(s) Active Excedrin Extra Strength Active Imitrex 25 MG 1 tablet as needed Orally Twice a day PRN Active Ventolin HFA 108 (90 Base) MCG/ACT Inhalation; Duration: 30 Not-Taking methylPREDNISolone 4 MG Oral; Duration: 6 Not-Taking Azithromycin 250 MG Oral; Duration: 5 Not-Taking predniSONE 50 MG Oral; Duration: 5 Not-Taking Voltaren 1 % Transdermal; Duration: 7 Not-Taking ZyrTEC Allergy 10 MG 1 capsule Orally Once a day; Duration: 30 day(s) Active Losartan Potassium 50 MG Oral; Duration: 90 Not-Taking Immunizations Vaccine Route Administration Date [...] W/U Status Risk Notes Problem Plantar wart ([id number]) Plantar wart (B07.0) Active confirmed Problem Hammer toe of left foot (M20.42) Active confirmed Plan Of Treatment Pending Test Test Name Order Date X ray : Foot, left 3V 03/31/2018 82321-Tqnffvzs Plate 03/31/2018 Insurance Providers Payer Name Payer Address Payer Phone Subscriber Number Group Number Insured Name Patient Relationship to Insured Coverage Start Date Coverage End Date [facility] [address] [place] [address] [id number] Marija Tompkins Self - patient is the insured Medical (General) History Medical History History ICD Code Arthritis asthma Back,Hip,and Knee pain Headaches/Migraines High blood pressure Sciatica Vascular phlebitis (clots) Surgical History Surgery Date(Month/Year) Hospitalization History Reason Date(Month/Year) [facility] Afib 04/2018
[2025-02-14 12:58] LABS: MANUAL DIFF FLAG NO
[2025-02-14 13:14] LABS: Hematocrit 45.1 % (37.0-47.0); Hemoglobin 14.5 g/dl (12.0-16.0); Imm Gran Abs Auto 0.02 X10*3/uL (0.00-0.03); Imm Gran Pct Auto 0.4 % (0.0-0.4); Lymphocytes Absolute Auto 1.1 X10*3/uL (1.2-4.9); Mean Corpuscular HGB Conc 32.2 g/dl (31.0-35.0); Mean Corpuscular Hemoglobin 30.3 pg (27.0-33.0); Mean Corpuscular Volume 94.4 fL (80.0-98.0); NRBC Abs Auto 0.000 X10*3/uL (0.0-0.012); NRBC Pct Auto 0.0 /100WBC (0.0-0.2); Platelet Count 210 X10*3/uL (160-400); Red Blood Count 4.78 X10*6/uL (4.20-5.50); White Blood Count 5.4 X10*3/uL (4.8-10.8)
[2025-02-14 13:31] LABS: Hemoglobin A1C 142.3086 umol/L; Total Hemoglobin (HGBA1C) 3847.6116 umol/L
[2025-02-14 13:36] LABS: Alanine Aminotransferase 19 U/L (0-31); Albumin Level 4.1 g/dL (3.5-5.0); Alkaline Phosphatase 84 U/L (39-117); Anion Gap 14 (12-20); Aspartate Amino Transferase 25 U/L (5-31); Blood Urea Nitrogen 24 mg/dL (9-16); Calcium 9.4 mg/dL (8.4-10.2); Carbon Dioxide 26 mmol/L (22-29); Chloride 108 mmol/L (96-108); Cholesterol 197 mg/dL (<200); Estimated Glomerular Filt Rate > 60; HDL Cholesterol 44 mg/dL (>40); Magnesium 2.3 mg/dL (1.6-2.6); Potassium 4.6 mmol/L (3.3-5.1); Sodium 143 mmol/L (135-145); Total Protein 6.8 g/dL (6.5-8.0); Triglycerides 132 mg/dL (<150)
[2025-02-14 14:06] LABS: Folate 9.9 ng/mL (> or = 4.0); Vitamin B12 216 pg/mL (200-900)
== END 2025-02-14 10:10 | disposition home or self-care (01) ==
LOC: HO.HMGCLDS 10:09
PROVIDERS: PCP Internal Medicine; Visit Provider Internal Medicine
DX: I48.91 Unspecified atrial fibrillation (principal); E55.9 Vitamin D deficiency, unspecified; E53.8 Deficiency of other specified B group vitamins
CPT/HCPCS: 36415; 80053; 80061; 82306; 82607; 82746; 83036; 83735; 84443; 85025

== ENCOUNTER 2025-04-11 09:47 | Outpatient (AMB) | payer OTHER, SELFPAY ==
--- OUTSIDE RECORDS SUMMARY | 2025-04-06 14:00 | XMS_ITS | Encounter Summary ---
Author Organization [facility] Address [address] [place] [address] Care Team Providers Care Immigration Services Officer Name Role Phone Gogo Grier MD Primary Care Provider Reason for Referral * Cardiac Stress Testing (Routine) - Pending Review Specialty Diagnoses / Procedures Referred By Sadia hernandez Referred To Contact Cardiology Diagnoses Dyspnea on exertion Paroxysmal atrial fibrillation (CMS/HCC V24, CMS/HCC V28) Procedures Nuclear stress test with myocardial perfusion VT MYOCARDIAL PERFUSION IMAGING TOMOGRAPHIC MULTI STUDIES AT REST OR STRESS VT MYOCARDIAL PERFUSION IMAGING TOMOGRAPHIC SINGLE STUDY AT REST OR STRESS VT CARDIOVASCULAR STRESS TEST GLOBAL VT CV TMST/BIKE MAX/SUBMAX CONTINUOUS ECG MON/PHARM STRESS SUPVSR ONLY VT CV STRESS TEST/BIKE CONT ECG MON/PHARM STRESS INTERP & REPORT ONLY VT TEST STRESS CARDIOVASCULAR TRACING ONLY Trent Mandujano MD [address] [place] [address] [place] [address] Phone: tel: fax: [facility] Referral ID Status Reason Start Date Expiration Date V isits Requested Visits Authorized [id number] Pending Review 04/06/2025 04/06/2026 3 3 * Imaging (Routine) - Authorized Specialty Diagnoses / Procedures Referred By Contac t Referred To Contact Cardiology Diagnoses Paroxysmal atrial fibrillation (CMS/HCC V24, CMS/HCC V28) Procedures Transthoracic echocardiogram (TTE) complete with PRN contrast, bubble, strain, and 3D order panel VT TTE W 2D IMAGE COMPLETE W DOPPLER ECHO & COLOR FLOW DOPPLER ECHO VT ALEJANDRINA 2D COMPLETE W/CONTRAST OR W & WO CONTRAST WITH DOPPLER Trent Mandujano MD [address] [place] [address] [address] [place] [address] Phone: tel: fax: [facility] Referral ID Status Reason Start Date Expiration Date V isits Requested Visits Authorized [id number] Authorized 04/06/2025 05/05/2025 1 1 Reason for Visit * Reason Comments Follow-up Encounter Details Date Type Department Care Team (Late st Contact Info) Description 04/06/2025 2:00 PM EDT Office Visit [facility] Cardiology [address] [place] [address] Trent Mandujano MD [address] [place] [address],[address] [address] Dyspnea on exertion (Primary Dx); Obesity (BMI 35.0-39.9 without comorbidity); Primary hypertension; Paroxysmal atrial fibrillation (CMS/HCC V24, CMS/HCC V28) Social History Tobacco Use Types Packs/Day Years [...] on file Sexual Orientation Not on file documented as of this encounter Last Filed Vital Signs Vital Sign Reading Time Taken Comments Blood Pressure 128/78 04/06/2025 2:01 PM EDT Pulse 64 04/06/2025 2:01 PM EDT Patie nt declined Temperature - - Respiratory Rate - - Oxygen Saturation 96% 04/06/2025 2:01 PM EDT Inhaled Oxygen Concentration - - Weight - - Height 162.6 cm (5' 4 ) 04/06/2025 2:01 PM EDT Body Mass Index - - documented in this encounter Ordered Prescriptions Prescription Sig Dispense Quantity Refills Last Filled Start Date End Date metoprolol succinate (TOPROL-XL) 50 mg 24 hr tabletIndications: Paroxysmal atrial fibrillation (CMS/HCC V24, CMS/HCC V28) Take 1 tablet (50 mg total) by mouth 1 (one) time each day. Do not crush or chew. 90 each 3 04/06/2025 04/06/2026 rivaroxaban (XARELTO) 20 mg tablet Take 1 tablet (20 mg total) by mouth 1 (one) time each day. With meals 90 tablet 3 04/06/2025 documented in this encounter Progress Notes * Trent Mandujano MD - 04/06/2025 2:00 PM EDTAssociated Problem(s): Dyspnea on exertion Exertional dyspnea is likely due to obesity and deconditioning. The patient has recently had episodes of substernal pressure radiating to her neck associated with dyspnea and marked elevation of heart rates in the 122 to 145 range. These episodes appear to correlate with paroxysms of atrial fibrillation as measured on her heart rate phone monitor which indicates heart rate but not rhythm. The patient has historically avoided stepping onto a scale. She is unable to exercise. Given her atrial fibrillation she may be a candidate for antiarrhythmic therapy and I would like to rule out fixed obstructive coronary disease prior to doing so. This of course will require obtaining her body weight prior to nuclear stress testing. Orders: Nuclear stress test with myocardial perfusion; Future * Trent Mandujano MD - 04/06/2025 2:00 PM EDTAssociated Problem(s): Obesity (BMI 35.0-39.9 without comorbidity) The patient has ischemic cardiomyopathy without congestive heart failure. He is on long-acting metoprolol, moderate dose Entresto and Farxiga. These are all well-tolerated. Given his drop in ejectionfraction I am adding spironolactone to his regimen. I will make arrangements for a basic metabolic profile a week after initiation of therapy. * Trent Mandujano MD - 04/06/2025 2:00 PM EDTAssociated Problem(s): Primary hypertension Reasonably well-controlled on her present medical regimen. Will increase metoprolol in an effort toreduce her burden of atrial fibrillation. * Trent Mandujano MD - 04/06/2025 2:00 PM EDTAssociated Problem(s): Afib (CMS/HCC V24, CMS/HCC V28) The patient has had highly symptomatic paroxysmal atrial fibrillation in the past manifest as recurrent episodes of presyncope and syncope. She has had a very favorable response to metoprolol 100 mg a day which until recently has completely suppressed evidence of recurrent atrial fibrillation. In the past few weeks she has had recurrent episodes of substernal discomfort radiating to her neck in concert with tachycardia paroxysms which are almost certainly atrial fibrillation. We reviewed options for ongoing care. My first step will be to reinitiate therapy with Xarelto. I have reviewed the pros and cons of this medication with her. She did have some nosebleeds in the past when she was taking this medication. In addition I am increasing metoprolol from 100 mg up to 150 mg a day. I have recommended a pharmacologic myocardial perfusion study but the patient has so far refused to step on a scale had a pretest weight is necessary in order to schedule testing. I will be repeating her echocardiogram to assessany potential change in underlying structural heart disease. I have reviewed options including antiarrhythmic therapy in the form of propafenone or sotalol (amiodarone would be problematic in the setting of longstanding restrictive lung disease) as well as percutaneous ablation techniques. I will speak to the patient again after testing is performed. I am making arrangements for a follow-up visitwith CARMELLA Berg in a few months. I anticipate that the patient may subsequently follow with Dr. Carmen. Orders: Transthoracic echocardiogram (TTE) complete with PRN contrast, bubble, strain, and 3D order panel; Future metoprolol succinate (TOPROL-XL) 50 mg 24 hr tablet; Take 1 tablet (50 mg total) by mouth 1 (one) time each day. Do not crush or chew. Nuclear stress test with myocardial perfusion; Future * Trent Mandujano MD - 04/06/2025 2:00 PM EDT PCP: Gogo Grier MD HPI: Marija Tompkins is a 79 y.o. old female who presents today for follow-up cardiac evaluation in thesetting of recurrent dysrhythmia. 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 The patient has had extremely symptomatic runs of rapid atrial fibrillation associated with near syncope and syncope. She was initially treated with diltiazem and Xarelto. Recurrent symptoms prompted a transition to metoprolol which proved to be more effective.I saw the patient in December 2019. She reported that her asthma was stable on Breo and that she was tolerating metoprolol succinate 100 mg a day. She had discontinued systemic anticoagulant therapy at that time and was quite pleased with her response to metoprolol. She was doing extremely well when shecame to see me in November 2023. There was no clinical evidence of recurrent dysrhythmia and she was tolerating her medications quite well. She was seen several months ago and appeared clinically stable, without evidence of significant Afib recurrence. Alirio has recently noted three episodes of increased heart rate. She notes a hot sensation in the front of the chest with a little heaviness radiating to the neck. Her last episode occurred 3 weeks ago and lasted 90 minutes. She has measured her HR and it runs in the 110-145 range. Then it drops down to 60 bpm. The patient has generally enjoyed good stamina without evidence of chest pressure or tightness. There has been continued mild to moderate breathlessness with exertional activity but the patient does not report orthopnea or PND. She notes mild peripheral edema. There have been no episodes of recurrent lightheadedness or syncope. She feels that metoprolol has been a miracle but recently she is having breakthrough symptoms. She only gets rare wheezes. PFTs revealed moderate restrictive lung disease without obstruction. ACTIVE MEDICATIONS: Outpatient Medications Marked as Taking for the 04/06/25 encounter (Office Visit) with Trent Mandujano MD Medication Sig Dispense Refill aspirin/acetaminophen/caffeine (EXCEDRIN MIGRAINE ORAL) Take 250 mg by mouth as needed. cetirizine (ZyrTEC) 10 mg capsule daily. cholecalciferol (VITAMIN D-3) 50 mcg (2,000 unit) tablet Take 2,000 mg by mouth daily. fluticasone furoate-vilanteroL (Breo Ellipta) 100-25 mcg/dose inhaler Inhale 1 puff by mouth 1 (one) time each day. ibuprofen (ADVIL,MOTRIN) 200 mg tablet Take 800 mg by mouth as needed. metoprolol succinate (TOPROL-XL) 100 mg 24 hr tablet Take 1 tablet (100 mg total) by mouth 1 (one) time each day. PAST MEDICAL HISTORY: Patient Active Problem List Diagnosis Date Noted Date Diagnosed Dyspnea on exertion 12/03/2023 Obesity (BMI 35.0-39.9 without comorbidity) 12/16/2021 Afib ([facility] V24, [facility] V28) 11/29/2020 Initially highly symptomatic with frequent recurrences associated with syncope at extremely rapid rates, favorable response to metoprolol. Patient stopped anticoagulant therapy several years ago. DVT (deep venous thrombosis) ([facility] V24, [facility] V28) 11/29/2020 Factor II mutation with recurrent DVT Primary hypertension 11/29/2020 Resolved Problems No resolved problems to display. ALLERGIES: Allergies Allergen Reactions Amoxicillin Lisinopril Cough Sulfamethoxazole rash Trimethoprim FAMILY HISTORY: No family history on file. SOCIAL HISTORY: Social History Tobacco Use Smoking status: Former Current packs/day: 0.00 Types: Cigarettes Quit date: 08/17/1979 Years since quittin.6 Smokeless tobacco: Never Substance Use Topics Alcohol use: Yes Comment: one or two drinks on the weekend REVIEW OF SYSTEMS: ROS PHYSICAL EXAM: Vitals: 04/06/25 1401 BP: 128/78 BP Location: Left arm Patient Position: Sitting BP Cuff Size: Large adult Pulse: 64 SpO2: 96% Height: 1.626 m (64 ) APPEARANCE: Alert and in no acute distress, obese. EYES: PERRL, conjunctiva and sclera normal EARS: External ears normal. NOSE/SINUS: Nares normal. Septum midline. Mucosa normal. No drainage or sinus tenderness. MOUTH/THROAT: no erythema or exudates NECK: JVP less then 8cm H2O, No bruits., Neck supple, no adenopathy or mass HEART: RRR with normal S1 and S2, no murmurs, no gallops, no JVD appreciated CHEST: non-tender LUNG: clear to auscultation ABDOMEN: Bowel sounds normoactive, no bruits, soft, non-tender, without organomegaly or palpable masses EXTREMITIES: Extremities warm and well perfused without clubbing. Patient has 1- 2+ peripheral edema, L > R. NEURO: Awake, alert and oriented x 3 and abnormal gait SKIN: Skin color, texture, turgor normal. No rashes or lesions. EKG: LE[facility] CAREGIVER TESTING: Echocardiography in the remote past demonstrated preserved left ventricular size and function. Repeat study is pending. ASSESSMENT/PLAN: Assessment & Plan Dyspnea on exertion Exertional dyspnea is likely due to obesity and deconditioning. The patient has recently had episodes of substernal pressure radiating to her neck associated with dyspnea and marked elevation of heart rates in the 122 to 145 range. These episodes appear to correlate with paroxysms of atrial fibrillation as measured on her heart rate phone monitor which indicates heart rate but not rhythm. The patient has historically avoided stepping onto a scale. She is unable to exercise. Given her atrial fibrillation she may be a candidate for antiarrhythmic therapy and I would like to rule out fixed obstructive coronary disease prior to doing so. This of course will require obtaining her body weight prior to nuclear stress testing. Orders: Nuclear stress test with myocardial perfusion; Future Obesity (BMI 35.0-39.9 without comorbidity) The patient has ischemic cardiomyopathy without congestive heart failure. He is on long-acting metoprolol, moderate dose Entresto and Farxiga. These are all well-tolerated. Given his drop in ejectionfraction I am adding spironolactone to his regimen. I will make arrangements for a basic metabolic profile a week after initiation of therapy. Primary hypertension Reasonably well-controlled on her present medical regimen. Will increase metoprolol in an effort toreduce her burden of atrial fibrillation. Paroxysmal atrial fibrillation (CMS/HCC V24, CMS/HCC V28) The patient has had highly symptomatic paroxysmal atrial fibrillation in the past manifest as recurrent episodes of presyncope and syncope. She has had a very favorable response to metoprolol 100 mg a day which until recently has completely suppressed evidence of recurrent atrial fibrillation. In the past few weeks she has had recurrent episodes of substernal discomfort radiating to her neck in concert with tachycardia paroxysms which are almost certainly atrial fibrillation. We reviewed options for ongoing care. My first step will be to reinitiate therapy with Xarelto. I have reviewed the pros and cons of this medication with her. She did have some nosebleeds in the past when she was taking this medication. In addition I am increasing metoprolol from 100 mg up to 150 mg a day. I have recommended a pharmacologic myocardial perfusion study but the patient has so far refused to step on a scale had a pretest weight is necessary in order to schedule testing. I will be repeating her echocardiogram to assessany potential change in underlying structural heart disease. I have reviewed options including antiarrhythmic therapy in the form of propafenone or sotalol (amiodarone would be problematic in the setting of longstanding restrictive lung disease) as well as percutaneous ablation techniques. I will speak to the patient again after testing is performed. I am making arrangements for a follow-up visitwith CARMELLA Berg in a few months. I anticipate that the patient may subsequently follow with Dr. Carmen. Orders: Transthoracic echocardiogram (TTE) complete with PRN contrast, bubble, strain, and 3D order panel; Future metoprolol succinate (TOPROL-XL) 50 mg 24 hr tablet; Take 1 tablet (50 mg total) by mouth 1 (one) time each day. Do not crush or chew. Nuclear stress test with myocardial perfusion; Future The [facility] team will continue to co-manage this patient following the plan of care as established by my initial visit and as per AHA guidelines for ongoing management and surveillance of 1. Dyspnea on exertion 2. Obesity (BMI 35.0-39.9 without comorbidity) 3. Primary hypertension 4. Paroxysmal atrial fibrillation (CMS/HCC V24, CMS/HCC V28) This will include medication titration, initiation of appropriate medications and further titration, and diagnostic studies to manage this disease process. documented in this encounter Plan of Treatment Scheduled Orders Name Type Priority Associated Diagnoses Orde r Schedule Nuclear stress test with myocardial perfusion Cardiac Nuclear Medicine Routine Dyspnea on exertion Paroxysmal atrial fibrillation (CMS/HCC V24, CMS/HCC V28) 1 Occurrences starting 04/06/2025 until 04/06/2026 documented as of this encounter Results * (ABNORMAL) TRANSTHORACIC ECHOCARDIOGRAM (TTE) COMPLETE (04/07/2025 11:36 AM EDT) Left Atrium Minor [place] 5.1 cm CV PACS Left Atrium Major [place] 5.9 cm CV PACS LA Area Sys (A2C) 19 cm2 CV PACS LA Area Sys (A4C) 25 cm2 CV PACS LA Volume (BP) 74 mL CV PACS AV Mean Gradient 4 mmHg CV PACS Ao VTI 32.8 cm CV PACS AV Peak [place] 1.4 m/s CV PACS AV Peak Gradient 8 mmHg CV PACS AV Area Continuity Equation 2.6 cm2 CV PACS AV Area Peak Velocity 2.6 cm2 CV PACS Aortic Sinus Valsalva 3.1 cm CV PACS Ascending Aorta 3.5 cm CV PACS IVSD 1.6(A) 0.6 - 0.9 cm CV PACS LVIDD 3.3(A) 3.8 - 5.2 cm CV PACS LVIDS 2.1(A) 2.2 - 3.5 cm CV PACS LVOT Diameter 2.0 cm CV PACS LVOT Mean Grad 3 mmHg CV PACS LVOT Peak VTI 27.0 cm CV PACS LVOT Mean [place] 0.8 m/s CV PACS LVOT Peak [place] 1.1 m/s CV PACS LVOT Peak Gradient 5 mmHg CV PACS LVPWD 1.6(A) 0.6 - 0.9 cm CV PACS MV E' Tissue Velocity Lateral 7 cm/s CV PACS MV E' Tissue Velocity Septal 4 cm/s CV PACS LVOT Area 3.1 cm2 CV PACS LVOT Stroke Volume 85 mL CV PACS E Wave Deceleration Time 169 119 - 242 ms CV PACS MV Peak A [place] 0.62 m/s CV PACS MV Peak E [place] 0.69 m/s CV PACS PV Peak Velocity 0.9 m/s CV PACS PV Peak Gradient 3 mmHg CV PACS RV S' 15 cm/s CV PACS TAPSE 18 mm CV PACS E/E' Ratio Septal 17 CV PACS E/E' Ratio Averaged 14 CV PACS LVOT Stroke Index 43 mL/m2 CV PACS Relative Wall Thickness ratio 0.97 CV PACS LVOT:AV VTI Index 0.82 CV PACS FS 36 % CV PACS LV Mass 2D 199 g CV PACS Ascending Aorta Index 1.75 cm/m2 CV PACS LVOT flow 251 mL/s CV PACS ISAIAH Index (VTI) 1.29 cm2/m2 CV PACS ISAIAH Index (Pk [place]) 1.30 cm2/m2 CV PACS LVIDD Index 1.65 cm/m2 CV PACS LVIDS Index 1.05 cm/m2 CV PACS AV Velocity Ratio 0.79 CV PACS E/A Ratio 1.1 CV PACS E/E' Ratio Lateral 10 CV PACS LA Volume Index (BP) 37 mL/m2 CV PACS LV Mass Index 2D 100 g/m2 CV PACS BSA 2.08 m2 CV PACS Est. RA Pressure 3 mmHg CV PACS Anatomical Region Laterality Modality Ultrasound Narrative 04/10/2025 12:05 PM EDT Left ventricle cavity size is normal. There is moderate hypertrophy. Systolic function is normal with an ejection fraction of 55-60%. There are no regional LV wall motion abnormalities. No hemodynamically significant valvular dysfunction There is no prior study available for comparison Left Ventricle Left ventricle cavity size is normal. There is moderate hypertrophy. Systolic function is normal with an ejection fraction of 55-60%. There are no regional LV wall motion abnormalities. Indeterminate diastolic function. Right Ventricle Right ventricle was not well visualized. Systolic function is normal. Left Atrium Left atrium volume index is mildly increased. Right Atrium Right atrium was not well visualized. IVC/SVC RA pressures is estimated to be 3 mmHg (IVC diameter <21 mm and decreases >50% during inspiration). Mitral Valve The leaflets are mildly thickened. There is mild annular calcification. There is mild regurgitation. There is no evidence of mitral valve stenosis. Tricuspid Valve The leaflets exhibit normal excursion. There is trace regurgitation. Cannot assess RVSP. Aortic Valve The aortic valve was not well visualized. There is no regurgitation or stenosis. Pulmonic Valve The pulmonic valve was not well visualized. There is trace pulmonic valve regurgitation. Ascending Aorta The aorta appears normal in size. Pericardium Pericardium appears normal. Study Details Overall the study quality was adequate. us Trent Mandujano MD CV ECHO PROCEDURES Final Resul t documented in this encounter Visit Diagnoses Diagnosis Dyspnea on exertion- Primary Other dyspnea and respiratory abnormality Obesity (BMI 35.0-39.9 without comorbidity) Primary hypertension Unspecified essential hypertension Paroxysmal atrial fibrillation (CMS/HCC V24, CMS/HCC V28) Atrial fibrillation Paroxysmal atrial fibrillation (CMS/HCC V24, CMS/HCC V28) Atrial fibrillation documented in this encounter Historical Medications * This list may reflect changes made after this encounter. fluticasone furoate-vilantero L (Breo Ellipta) 100-25 mcg/dose inhaler Inhale 1 puff by mouth 1 (one) time each day. added in this encounter Care Teams Immigration Services Officer Relationship Specialty Start Date End Date Gogo Grier MD [address] [place] [address] PCP - General 12/03/17 documented as of this encounter
--- OUTSIDE RECORDS SUMMARY | 2025-04-07 11:00 | XMS_ITS | Encounter Summary ---
Author Organization [facility] Address [address] [place] [address] Care Team Providers Care Sample Box Maker Name Role Phone Gogo Grier MD Primary Care Provider [phone] Reason for Visit * Imaging (Routine) - Authorized Specialty Diagnoses / Procedures Referred By Sadia t Referred To Contact Cardiology Diagnoses Paroxysmal atrial fibrillation (CMS/HCC V24, CMS/HCC V28) Procedures Transthoracic echocardiogram (TTE) complete with PRN contrast, bubble, strain, and 3D order panel NH TTE W 2D IMAGE COMPLETE W DOPPLER ECHO & COLOR FLOW DOPPLER ECHO NH ALEJANDRINA 2D COMPLETE W/CONTRAST OR W & WO CONTRAST WITH DOPPLER Trent Mandujano MD [address] [place] [address],[address] [place] [address] Phone: tel: fax: [facility] Referral ID Status Reason Start Date Expiration Date V isits Requested Visits Authorized [id number] Authorized 04/06/2025 05/05/2025 1 1 Encounter Details Date Type Department Care Team (Latest Contact Info) Description 04/07/2025 11:00 AM EDT Ancillary Procedure [facility] [address] [place] [address] Paroxysmal atrial fibrillation (CMS/HCC V24, CMS/HCC V28) [...] Sign Reading Time Taken Comments Blood Pressure 180/100 04/07/2025 11:36 AM EDT Pulse - - Temperature - - Respiratory Rate - - Oxygen Saturation - - Inhaled Oxygen Concentration - - Weight 95.7 kg (211 lb) 04/07/2025 11:36 AM EDT Height 162.6 cm (5' 4 ) 04/07/2025 11:36 AM EDT Body Mass Index 36.22 04/07/2025 11:36 AM EDT documented in this encounter Plan of Treatment Not on file documented as of this encounter Procedures Procedure Name Priority Date/Time Associated Diagnosis Comments TRANSTHORACIC ECHOCARDIOGRAM (TTE) COMPLETE Routine 04/07/2025 11:36 AM EDT Paroxysmal atrial fibrillation (CMS/HCC V24, CMS/HCC V28) documented in this encounter Results * (ABNORMAL) TRANSTHORACIC ECHOCARDIOGRAM (TTE) COMPLETE (04/07/2025 11:36 AM EDT) Left Atrium Minor [place] 5.1 cm CV PACS Left Atrium Major [place] 5.9 cm CV PACS LA Area Sys [...] documented in this encounter Visit Diagnoses Diagnosis Paroxysmal atrial fibrillation (CMS/HCC V24, CMS/HCC V28) Atrial fibrillation documented in this encounter Care Teams Sample Box Maker Relationship Specialty Start Date End Date Gogo Grier MD [address] [place] [address] PCP - General 12/03/17 documented as of this encounter
[2025-04-11 09:50] VITALS: BP 150/104; PULSE 67; O2SAT 94
--- NOTE | 2025-04-11 09:50 | A.OFFVIS_ITS ---
Vital Signs 04/11/25 09:50 Height 5 ft 4 in BMI Reason not done Patient refused/unable BP 150/104 H Blood Pressure Location Lt brachial Position Sitting Pulse 67 Pulse Source Pulse Oximeter Pulse Oximetry (%) 94 Oxygen Delivery Method Room Air Intake Visit Reasons: Interstitial lung disease Advanced Manufacturing Engineer Required: No Accompanied by: Self / Same As Patient Allergies sulfamethoxazole (From Bactrim) Allergy (Mild, Verified 07/28/24 09:51) RASH trimethoprim (From Bactrim) Allergy (Mild, Verified 07/28/24 09:51) RASH Sulfa (Sulfonamide Antibiotics) Allergy (Unknown, Verified 07/28/24 09:51) rash amoxicillin Adverse Reaction (Unknown, Verified 07/28/24 09:51) nausea and vomiting lisinopril Adverse Reaction (Unknown, Verified 07/28/24 09:51) cough HPI Comments Details: The patient is here for pulmonary evaluation. The patient is a 79 year woman with a known history of atrial fibrillation presenting with dyspnea symptoms. Her symptoms symptoms have been getting worse for the last year. She had been noticing that even minimal activities resulting in significant breathlessness. Fjtq-kd-wtydmhuv severity. She does have a history atrial fibrillation and follows up closely with Cardiology. She recently had an echocardiogram demonstrating left ventricular hypertrophy. The patient also underwent pulmonary function studies which I personally reviewed. The patient does have a mild restrictive ventilatory defect. Appears to also have a stxz-dw-nyngguzn diffusion impairment but it does correct to normal when corrected for the alveolar volume. This suggests the likelihood of hypo expansion playing a role. During the visit we did go for a walking oximetry. The patient did desaturate down to 93%. Heart rate was stable at 84 since she takes metoprolol. She does have lower extremity edema. Currently she is taking Breo and she tolerates that well. She is agreeable to starting Incruse to see if we can optimize her respiratory capacity. In the meantime work on low-dose sodium diet and will give her Lasix 20 mg in the morning x3 days to improve her volume status. The patient is also having daytime drowsiness. With the atrial fibrillation other cardiovascular risks and her elevated [place] score of 11/24. The patient should have a sleep study. Will go ahead and arrange for home sleep study this time. Regarding imaging studies we did look at her x-ray that she had normal otherwise. She also had a CT scan of the abdomen from 2019 which I personally reviewed demonstrating normal lung parenchyma of the lung windows. This is overall reassuring I do not foresee that the restrictive ventilatory defect is related to any parenchymal disease at this time. No evidence of any crackles on exam either. [facility] Medical History (Updated 04/11/25 @ 21:00 by Flaco Warren MD) Chronic restrictive lung disease LAUREANO (obstructive sleep apnea) Asthma Annual physical exam Hyperglycemia Hyperlipidemia Morbid obesity Atrial fibrillation Migraine Surgical History History of section History of incisional hernia repair S/P colon resection Family History Father CHF (congestive heart failure) Mother No problems noted. Son No problems noted. Son No problems noted. Social History Household Members: Other Housing: House Do you presently have visiting nurse or other home services: No Alcohol intake: never Patient Tobacco Use Status: Never used Tobacco e-Cigarette/Vaping Use: Never Used service: No Current occupational status: employed Cognitive needs: No Hearing needs: No Vision needs: Yes Review of Systems Const Reports daytime sleepiness Eyes Reports no additional complaints ENT Denies sore throat Card Denies chest pain and Reports dyspnea on exertion Resp Reports cough, Reports dyspnea on exertion and Denies wheezing GI Reports dyspepsia and Reports heartburn Musc Reports myalgias Skin/Breast Denies rash Neuro Reports no additional complaints Oumar/Lymph Reports no additional complaints Aller/Immun Denies wheezing Physical Exam Vital Signs: Last Vital Signs Pulse 67 04/11/25 09:50 BP 150/104 H 04/11/25 09:50 Pulse Ox 94 04/11/25 09:50 Oxygen Delivery Method Room Air 04/11/25 09:50 Const General: comfortable HEENT Head: Yes normocephalic Neck Neck: Yes supple Chest Chest palpation & inspection: normal inspection of the chest Resp Effort & Inspection: normal respiratory effort Auscultation: diminished lung sounds Cardio Heart sounds: S1 normal heart sound present and S2 normal heart sound present GI Palpation (GI): Soft to palpation Skin General skin exam: no rashes or lesions noted Extrem General: Yes clubbing, Yes cyanosis and No edema Assessment & Plan Assessment & Plan (1) BLANCHARD (dyspnea on exertion): Code(s): R06.09 - Other forms of dyspnea Category: Medical (2) Atrial fibrillation: Comment: f/u Dr. Mandujano, pt declined anticoagulation, in 2020, nl Echo Code(s): I48.91 - Unspecified atrial fibrillation Category: Medical Qualifiers: Atrial fibrillation type: unspecified chronic Qualified Code(s): I48.20 - Chronic atrial fibrillation, unspecified (3) LAUREANO (obstructive sleep apnea): Code(s): G47.33 - Obstructive sleep apnea (adult) (pediatric) Category: Medical (4) Asthma: Code(s): J45.909 - Unspecified asthma, uncomplicated Category: Medical Qualifiers: Asthma severity: moderate Asthma persistence: persistent Asthma compl ication type: uncomplicated Qualified Code(s): J45.40 - Moderate persistent asthma, uncomplicated (5) Chronic restrictive lung disease: Code(s): J98.4 - Other disorders of lung Category: Medical (6) Hypertension: Code(s): I10 - Essential (primary) hypertension Category: Medical Qualifiers: Hypertension type: primary hypertension Qualified Code(s): I10 - Essential (primary) hypertension Plan continue Breo Add Incruse Lasix x 3 days Low sodium diet F/U with PCP/Cardiology re: elevated BPs weight management F/U 2-3 months Orders: Orders RT home sleep study Today G47.33 - Obstructive sleep apnea (adult) (pediatric) Medications: New furosemide (Lasix) 20 mg PO DAILY 3 tabs 0RF umeclidinium 62.5 mcg/actuation (Incruse Ellipta) 1 inh inhalation DAILY 30 ea 11RF 30 days J45.909 - Unspecified asthma, uncomplicated Coding Level of Care Code New Pt Level 4 (04211) Diagnoses BLANCHARD (dyspnea on exertion) R06.09 Chronic atrial fibrillation I48.20 Atrial fibrillation type: unspecified chronic LAUREANO (obstructive sleep apnea) G47.33 Moderate persistent asthma without complication J45.40 Asthma severity: moderate Asthma persistence: persistent Asthma complication type: uncomplicated Chronic restrictive lung disease J98.4 Primary hypertension I10 Hypertension type: primary hypertension Time Spent (min) 45
--- OUTSIDE RECORDS SUMMARY | 2025-04-11 10:32 | XMS_ITS | Clinical Summary ---
Author Organization [facility] Address [address] [place] [address] Phone Care Team Providers Care Dive Master Name Role Phone Gogo Grier MD Primary Care Provider [phone] Allergies Active Allergy Reactions Criticality Noted Date Comments Amoxicillin 11/29/2020 Lisinopril 11/29/2020 Cough Sulfamethoxazole 11/29/2020 rash Trimethoprim 11/29/2020 Medications metoprolol succinate (TOPROL-XL) 100 mg 24 hr tablet Take 1 tablet (100 mg total) by mouth 1 (one) time each day. 01/04/2024 Active ibuprofen (ADVIL,MOTRIN) 200 mg tablet Take 800 mg by mouth as needed. Active cetirizine (ZyrTEC) 10 mg capsule daily. 12/06/2017 Active aspirin/acetamino phen/caffeine (EXCEDRIN MIGRAINE ORAL) Take 250 mg by mouth as needed. Active cholecalciferol (VITAMIN D-3) 50 mcg (2,000 unit) tablet Take 2,000 mg by mouth daily. Active fluticasone furoate-vilantero L (Breo Ellipta) 100-25 mcg/dose inhaler Inhale 1 puff by mouth 1 (one) time each day. Active rivaroxaban (XARELTO) 20 mg tablet Take 1 tablet (20 mg total) by mouth 1 (one) time each day. With meals 90 tablet 3 04/06/2025 Active metoprolol succinate (TOPROL-XL) 50 mg 24 hr tabletIndications :Paroxysmal atrial fibrillation (CMS/HCC V24, CMS/HCC V28) Take 1 tablet (50 mg total) by mouth 1 (one) time each day. Do not crush or chew. 90 each 3 04/06/2025 04/06/20 26 Active Active Problems Problem Noted Date Diagnosed Date Dyspnea on exertion 12/03/2023 Assessment & Plan (04/06/2025 5:07 PM EDT): Exertional dyspnea is likely due to obesity [...] Nuclear stress test with myocardial perfusion; Future Assessment & Plan (11/28/2024 1:15 PM EDT): No CHF. To have PFT's in 2 weeks in [place]. She has occasional wheezes. She will need to avoid intense cardiac stimulation from bronchodilators if these are considered in the future. Orders: ECG 12 lead Obesity (BMI 35.0-39.9 without comorbidity) 09/2021 Assessment & Plan (04/06/2025 5:07 PM EDT): The patient has ischemic cardiomyopathy without congestive heart failure. He is on long-acting metoprolol, moderate dose Entresto and Farxiga. These are all well-tolerated. Given his drop in ejection fraction I am adding spironolactone to his regimen. I will make arrangements for a basic metabolic profile a week after initiation of therapy. Assessment & Plan (11/28/2024 1:15 PM EDT): Patient continues to have obesity without major intervention. She is reading about semaglutide but is not inclined to give herself a shot. We had a long discussion regarding ways to maintain her present situation we will be writing a narrative to which she has stubbornly adhered. Orders: ECG 12 lead Afib ([facility] V24, [facility] V28) 11/29/2020 Overview (11/25/2024): Initially highly symptomatic with frequent recurrences associated with syncope at extremely rapid rates, favorable response to metoprolol. Patient stopped anticoagulant therapy several years ago. Assessment & Plan (04/06/2025 5:07 PM EDT): The patient has had highly symptomatic paroxysmal [...] I will be repeating her echocardiogram to assess any potential change in underlying structural heart disease. I have reviewed options including antiarrhythmic therapy in the form of propafenone or sotalol (amiodarone would be problematic in the setting of longstanding restrictive lung disease) as well as percutaneous ablation techniques. I will speak to the patient again after testing is performed. I am making arrangements for a follow-up visit with CARMELLA Berg in a few months. I [...] Nuclear stress test with myocardial perfusion; Future Assessment & Plan (11/28/2024 1:15 PM EDT): [...] lead Primary hypertension 11/29/2020 Assessment & Plan (04/06/2025 5:07 PM EDT): Reasonably well-controlled on her present medical regimen. Will increase metoprolol in an effort to reduce her burden of atrial fibrillation. Assessment & Plan (11/28/2024 1:15 PM EDT): [...] Encounters Date Type Department Care Team Description 04/07/2025 11:00 AM EDT Ancillary Procedure [facility] [address] [place] [address] Paroxysmal atrial fibrillation (CMS/HCC V24, CMS/HCC V28) 04/06/2025 2:00 PM EDT Office Visit [facility] [address] [place] [address] Trent Mandujano MD Dyspnea on exertion (Primary Dx); Obesity (BMI 35.0-39.9 without comorbidity); Primary hypertension; Paroxysmal atrial fibrillation (CMS/HCC V24, CMS/HCC V28) 03/24/2025 Telephone [facility] [address] [place] [address] Trent Mandujano MD 03/22/2025 Telephone [facility] [address] [place] [address] [place] [address] Trent Mandujano MD 02/14/[address] [place] [address] Trent Mandujano MD from Last 3 Months Surgical History Surgery Date Site/Laterality Comments SECTION PROCEDURE: LA DELIVERY ONLY HERNIA REPAIR PROCEDURE: LA REPAIR FIRST ABDOMINAL WALL HERNIA Social History [...] Pressure 180/100 04/07/2025 11:36 AM EDT Pulse 64 04/06/2025 2:01 PM EDT Patie nt declined Temperature - - Respiratory Rate - - Oxygen Saturation 96% 04/06/2025 2:01 PM EDT Inhaled Oxygen Concentration - - Weight 95.7 kg (211 lb) 04/07/2025 11:3 6 AM EDT Height 162.6 cm (5' 4 ) 04/07/2025 11:3 6 AM EDT Body Mass Index 36.22 04/07/2025 11:36 AM EDT Plan of Treatment Health Maintenance Due Date Last Done Comments DTaP,Tdap,and Td Vaccines (1 - Tdap) 1964 Pneumococcal Vaccine: 50+ Years (1 of 2 - PCV) 1965 Zoster Vaccines (1 of 2) 1996 RSV Immunization Adult Patients (1 - 1-dose 75+ series) 2021 Cholesterol Screening (Lipid Panel) 07/26/2022 Falls Risk Assessment 07/26/2022 Hepatitis C Screening 07/26/2022 Osteoporosis Screening (Bone Density Screening) 07/26/2022 Social Influencers of Health Screening 07/26/2022 Hypertension/CHF/CAD Annual BMP Blood Test 07/27/2022 COVID-19 Vaccine (3 - 2023-2 5 season) 2024 11/14/2020, 10/26/2020 Depression Screening 08/17/2024 Influenza Vaccine (#1) 2025 HIB Vaccines Aged Out No longer [...] to complete this topic RSV Immunization Patients Under 20 months Aged Out No longer eligible b ased on patient's age to complete this topic Varicella Vaccines Aged Out No longer eligible based on patient's age to complete this topic Procedures Procedure Name Priority Date/Time Associated Diagnosis Comments TRANSTHORACIC ECHOCARDIOGRAM (TTE) COMPLETE Routine 04/07/2025 11:36 AM EDT Paroxysmal atrial fibrillation (CMS/HCC V24, CMS/HCC V28) from Last 3 Months Results * (ABNORMAL) TRANSTHORACIC ECHOCARDIOGRAM (TTE) COMPLETE (04/07/2025 11:36 AM EDT) Left [facility] [place] 5.1 cm CV PACS Left [facility] [place] 5.9 cm CV PACS [place] Area Sys [...] Details Overall the study quality was adequate. Trent Mandujano MD CV ECHO PROCEDURES Final Resul t from Last 3 Months Insurance [facility] [place] [id number] Care Teams Dive Master Relationship Specialty Start Date End Date Gogo Grier MD [address] [place] [address] PCP - General 12/03/17
--- OUTSIDE RECORDS SUMMARY | 2025-04-11 10:33 | XMS_ITS | Patient Health Record ---
Author Organization [facility] [place] Address [address] [place] [address] Care Team Providers Care Park Maintainer Name Role Phone Gogo Grier MD Primary Care Provider Shahla Burkett Unavailable [phone] Allergies Allergen (clinical drug ingredient) Drug/Non Drug [...] W/U Status Risk Notes Problem Plantar wart (96674872) Plantar wart (B07.0) Active confirmed Problem Acquired hammer toe of left foot ([id number] 103) Hammer toe of left foot (M20.42) Active confirmed Plan Of Treatment Pending Test Test Name Order Date X ray : Foot, left 3V 03/31/2018 [id number] Plate 03/31/2018 Next Appt Details Provider Name:Shahla zapien, 05/03/2025 12:00:00 PM, [address] [place] [address], [phone], Insurance Providers Payer Name Payer Address Payer Phone Subscriber Number Group Number Insured Name Patient Relationship to Insured Coverage Start Date Coverage End Date [facility] [address] [place] [id number] Marija Tompkins Self - patient is the insured Medical (General) History Medical History History ICD Code Arthritis asthma Back,Hip,and Knee pain Headaches/Migraines High blood pressure Sciatica Vascular phlebitis (clots) Surgical History Surgery Date(Month/Year) Hospitalization History Reason Date(Month/Year) [facility] Afib 04/2018
== END 2025-04-11 10:30 | disposition home or self-care (01) ==
LOC: HO.HPS 09:48
PROVIDERS: PCP Internal Medicine; Visit Provider Hospitalist
DX: R06.09 Other forms of dyspnea (principal); I48.20 Chronic atrial fibrillation, unspecified; G47.33 Obstructive sleep apnea (adult) (pediatric); J45.40 Moderate persistent asthma, uncomplicated; J98.4 Other disorders of lung; I10 Essential (primary) hypertension
CPT/HCPCS: 99204

== ENCOUNTER 2025-04-25 11:16 | Outpatient (AMB) | payer OTHER, SELFPAY ==
[2025-04-25 11:23] VITALS: BP 126/82; PULSE 61; RESP 18; TEMP 36.6; O2SAT 99
--- NOTE | 2025-04-25 11:23 | A.OFFPC_ITS ---
Vital Signs 04/25/25 11:23 Height 5 ft 4 in BMI Reason not done Patient refused/unable BP 126/82 Blood Pressure Location Lt brachial Position Sitting Respiration 18 Pulse 61 Pulse Source Pulse Oximeter Temp 97.8 F Temp Source Oral Pulse Oximetry (%) 99 Oxygen Delivery Method Room Air Intake Visit Reasons: Stomach hurts Intake Note: Pt is here today for a sick visit. Pt c/o abdominal pain. Allergies sulfamethoxazole (From Bactrim) Allergy (Mild, Verified 04/25/25 11:23) RASH trimethoprim (From Bactrim) Allergy (Mild, Verified 04/25/25 11:23) RASH Sulfa (Sulfonamide Antibiotics) Allergy (Unknown, Verified 04/25/25 11:23) rash amoxicillin Adverse Reaction (Unknown, Verified 04/25/25 11:23) nausea and vomiting lisinopril Adverse Reaction (Unknown, Verified 04/25/25 11:23) cough Medication List - Last Reconciled 04/25/25 by Gogo Grier MD Breo Ellipta 100-25 mcg/dose (fluticasone furoate-vilanterol) 1 inh inhalation DAILY NS furosemide (Lasix) 20 mg PO DAILY ibuprofen 800 mg PO Q8H PRN metoprolol succinate ER 150 mg PO DAILY sumatriptan 20 mg/actuation (Imitrex) 20 mg intranasal Q2H PRN [Vitamin D (with calcium) 1 tab PO DAILY] Tobacco use date assessed: 04/25/25 Fall risk assessment: No Falls in past year Last assessed Fall Risk: 04/25/25 Dental Screening Dental Screen Date: 04/25/25 Did you have a dental visit in the last 12 months?: Yes Did you have a dental problem in the last 6 months where you did not have access to dental care?: No Was dental information given to patient?: Patient has dentist HPI Stomach hurts HPI Details Pt presents c/o persistent lower abd pain, pressure like, bloating, intermittent constipation for 2 weeks. The pain has been getting more intense over the last few days Pt denies N/V/fever/hematochezia melena dysuria hematuria. HTN and chronic asthma is stable on Breo PFSH Medical History Chronic restrictive lung disease LAUREANO (obstructive sleep apnea) Asthma Annual physical exam Hyperglycemia Hyperlipidemia Morbid obesity Atrial fibrillation Migraine Surgical History History of section History of incisional hernia repair S/P colon resection Family History Father CHF (congestive heart failure) Mother No problems noted. Son No problems noted. Son No problems noted. Social History Household Members: Other Housing: House Do you presently have visiting nurse or other home services: No Alcohol intake: never Patient Tobacco Use Status: Never used Tobacco e-Cigarette/Vaping Use: Never Used service: No Current occupational status: employed Cognitive needs: No Hearing needs: No Vision needs: Yes Questionnaire PHQ-9 Over the last 2 weeks, how often have you been bothered by any of the following problems? 1. Little interest or pleasure in doing things: not at all 2. Feeling down, depressed, or hopeless: not at all 3. Trouble falling or staying asleep, or sleeping too much: not at all 4. Feeling tired or having little energy: not at all 5. Poor appetite or overeating: not at all 6. Feeling bad about yourself - or that you are a failure or have let yourself or your family down: not at all 7. Trouble concentrating on things, such as reading the newspaper or watching television: not at all 8. Moving or speaking so slowly that other people could have noticed. Or the opposite - being so fidgety or restless that you have been moving around a lot more than usual: not at all 9. Thoughts that you would be better off or of hurting yourself in some way: not at all Total score: 0 Depression Screening Interpretation: Negative Depression Screening Done: Yes Source: Developed by Drs. González Rubi, Tuyet Cabello, Constantine Bernal and colleagues, with an educational yesica from [employer]. Thrive Questionnaire Date Thrive assessed: 04/25/25 I am a: Patient What is your living situation today?: I have a steady place to live Within the past 12 months, did the food you bought not last and you didn't have the money to get more?: Never true Within the past 12 months, did you worry whether your food would run out before you got money to buy more?: Never true Do you have trouble paying for medicines?: No Do you have trouble getting transportation to medical appointments?: No Do you have trouble paying your heating and electricity bill?: No Do you have trouble taking care of your child, family member or friend?: No Do you have trouble with day-to-day activities such as bathing, preparing meals, shopping, managing finances, etc.?: No Are you currently unemployed and looking for a job?: No Are you interested in more education?: No Please select the resources that you would like help with: None THRIVE Score: 0 HE-7 AMB Questionnaire HE-7 Date HE - 7 assessed: 04/25/25 Feeling nervous, anxious, or on edge: 0 = Not at all Not being able to stop or control worryin = Not at all Worrying too much about different things: 0 = Not at all Trouble relaxin = Not at all Being so restless that it is hard to sit still: 0 = Not at all Becoming easily annoyed or irritable: 0 = Not at all Feeling afraid as if something awful might happen: 0 = Not at all Total HE-7 score (0-4 normal; 5-9 mild; 10-14 moderate; 15-21 severe): 0 Source: Developed by Drs. González Rubi, Tuyet Cabello, Constantine Bernal and colleagues, with an educational yesica from [employer]. Review of Systems Const All systems reviewed & are unremarkable except as noted in HPI and below Eyes Reports no additional complaints ENT Reports no additional complaints Card Reports no additional complaints Resp Reports no additional complaints GI Reports no additional complaints Reports no additional complaints Physical exam (Primary Care) Vital Signs: Last Vital Signs Temp 97.8 F 04/25/25 11:23 Pulse 61 04/25/25 11:23 Resp 18 04/25/25 11:23 BP 126/82 04/25/25 11:23 Pulse Ox 99 04/25/25 11:23 Oxygen Delivery Method Room Air 04/25/25 11:23 Tobacco/Smoking Status: Tobacco use Status Tobacco use date assessed 04/25/25 04/25/25 11:31 Patient Tobacco Use Status Never used Tobacco 04/25/25 11:31 e-Cigarette/Vaping Use Never Used 04/25/25 11:31 PHQ-9: PHQ-9 Score PHQ-9: Total score 0 04/25/25 13:10 Depression Screening Interpretation: Negative Thrive Assessment: Date of Thrive Assessment Date Thrive assessed 04/25/25 04/25/25 11:31 Const General: no acute distress HENMT Head: Yes normal to inspection Face and sinus: Yes normal facial exam Mouth: Normal oral and palatal mucosa present Eyes General: appearance normal, both eyes and all related structures Resp Effort & Inspection: normal respiratory effort Auscultation: clear to auscultation bilaterally Cardio Rhythm: regular rhythm Heart sounds: S1 normal heart sound present and S2 normal heart sound present GI Other: Left and right lower quadrants tenderness, no rebound or guarding Inspection: Yes normal to inspection Palpation (GI): Soft to palpation Auscultation: normal bowel sounds Coding Level of Care Code Est Pt Level 3 (18251) Diagnoses Diverticulitis K57.92 Abdominal pain R10.9 Assessment & Plan Assessment & Plan (1) Diverticulitis: Code(s): K57.92 - Diverticulitis of intestine, part unspecified, without perforation or abscess without bleeding Category: Medical Plan: Obtain CT of the abdomen and pelvis to rule out diverticulitis (2) Abdominal pain: Code(s): R10.9 - Unspecified abdominal pain Category: Medical Plan: Check UA and culture and obtain CT of the abdomen and pelvis as above Orders: Orders Creatinine Today K57.92 - Diverticulitis of intestine, part unspecified, without perforation or abscess without bleeding CT abdomen pelvis w IV con Today K57.92 - Diverticulitis of intestine, part unspecified, without perforation or abscess without bleeding UA w Microscopic Today R10.9 - Unspecified abdominal pain Blood Urea Nitrogen Today K57.92 - Diverticulitis of intestine, part unspecified, without perforation or abscess without bleeding Urine Culture Today R10.9 - Unspecified abdominal pain Referrals Cologuard Test Z12.11 - Encounter for screening for malignant neoplasm of colon, Z12.12 - Encounter for screening for malignant neoplasm of rectum Medications: Changed From metoprolol succinate ER 100 mg PO DAILY 90 tabs 3RF To metoprolol succinate ER 150 mg PO DAILY
--- OUTSIDE RECORDS SUMMARY | 2025-04-25 13:40 | XMS_ITS | Clinical Summary ---
Author Organization [facility] [employer] [facility] Address [address] [place] [address] Phone Care Team Providers Care Acid Filler Name Role Phone Gogo Grier MD Primary Care Provider [phone] Allergies Active Allergy Reactions Criticality Noted Date [...] To have PFT's in 2 weeks in [place]. She has occasional wheezes. She will need [...] stubbornly adhered. Orders: ECG 12 lead Afib ([facility] V24, [facility] V28) 11/29/2020 Overview (11/25/2024): Initially highly symptomatic [...] lead DVT (deep venous thrombosis) (CMS/HCC V24, CMS/H CC V28) 11/29/2020 Overview (09/09/2024): Factor II [...] Encounters Date Type Department Care Team Description 04/11/2025 Telephone [facility] Cardiology [facility] [address] [place] [address] Trent Mandujano MD 04/07/2025 11:00 AM EDT Ancillary Procedure [facility] Cardiology [facility] [address] [place] [address] Paroxysmal atrial fibrillation (CMS/HCC V24, CMS/HCC V28) 04/06/2025 2:00 PM EDT Office Visit [facility] Cardiology [facility] [address] [place] [address] Trent Mandujano MD Dyspnea on exertion (Primary Dx); Obesity (BMI 35.0-39.9 without comorbidity); Primary hypertension; Paroxysmal atrial fibrillation (CMS/HCC V24, CMS/HCC V28) 03/24/2025 Telephone [facility] [address] [place] [address] Trent Mandujano MD 03/22/2025 Telephone [facility] [address] [place] [address] Trent Mandujano MD 02/14/2025 Telephone [facility] [address] [place] [address] Trent Mandujano MD from Last 3 Months Surgical History Surgery Date Site/Laterality Comments SECTION PROCEDURE: [place]IV[place] HERNIA REPAIR PROCEDURE: [place] REPAIR FIRST ABDOMINAL WALL HERNIA Social History [...] 07/26/2022 Hypertension/CHF/CAD Annual BMP Blood Test 07/27/2022 Depression Screening 08/17/2024 COVID-19 Vaccine (3 - 2024-2 6 season) 2025 11/14/2020, 10/26/2020 Influenza Vaccine (#1) 2025 HIB Vaccines Aged [...] (04/07/2025 11:36 AM EDT) Left Atrium Minor [place] 5.1 cm CV PACS Left Atrium Major [place] 5.9 cm CV PACS [place] Area Sys [...] [place] 0.8 m/s CV PACS LVOT Peak [place] 1.1 m/s CV PACS LVOT Peak Gradient [...] Resul t from Last 3 Months Insurance [facility] [place] [id number] Care Teams Acid Filler Relationship Specialty Start Date End Date Gogo Grier MD [address] [place] [address] PCP - General 12/03/17
--- OUTSIDE RECORDS SUMMARY | 2025-04-25 13:40 | XMS_ITS | Patient Health Record ---
Author Organization [facility] Kanu daniel Gene Address [address] [facility] [place] [address] Care Team Providers Care Electronic Transaction Implementer Name Role Phone Gogo Grier MD Primary Care Provider Shahla Burkett Unavailable [phone] Allergies Allergen (clinical drug ingredient) Drug/Non Drug [...] W/U Status Risk Notes Problem Plantar wart (08236609) Plantar wart (B07.0) Active confirmed Problem Acquired hammer toe of left foot (7427407164275 103) Hammer toe of left foot (M20.42) Active confirmed Plan Of Treatment Pending Test Test Name Order Date X ray : Foot, left 3V 03/31/2018 [id number] Plate 03/31/2018 Next Appt Details Provider Name:Shahla zapien, 05/03/2025 12:00:00 PM, [address] [place] [address], [phone], Insurance Providers Payer Name Payer Address Payer Phone Subscriber Number Group Number Insured Name Patient Relationship to Insured Coverage Start Date Coverage End Date [facility] [address] [place] [id number] [phone] [id number] Marija Tompkins Self - patient is the insured Medical (General) History Medical History History ICD Code Arthritis asthma Back,Hip,and Knee pain Headaches/Migraines High blood pressure Sciatica Vascular phlebitis (clots) Surgical History Surgery Date(Month/Year) Hospitalization History Reason Date(Month/Year) [facility] Afib 04/2018
== END 2025-04-25 12:16 | disposition home or self-care (01) ==
LOC: HO.HMCC 11:17
PROVIDERS: PCP Internal Medicine; Visit Provider Internal Medicine
DX: K57.92 Diverticulitis of intestine, part unspecified, without perforation or abscess without bleeding (principal); R10.9 Unspecified abdominal pain

== ENCOUNTER 2025-05-15 12:26 | Outpatient (REF) | payer OTHER, SELFPAY ==
--- NOTE | ~2025-05-15 | CT_ITS ---
EXAMINATION: CT ABDOMEN PELVIS WITHOUT IV CONTRAST HISTORY: K57.92 - Diverticulitis of intestine, part unspecified, without perforation... COMPARISON: Comparison is made with the prior examination dated 08/03/2020. TECHNIQUE: CT scan of the abdomen and pelvis was performed without contrast using standard departmental protocol. Coronal and sagittal reformatted images were generated and reviewed. The patient received oral contrast material. This CT exam was performed with one or more of the following dose reduction techniques: automated exposure control, adjustment of the mA and/or kV according to patient size, use of iterative reconstruction technique. DLP: 62 mGy-cm FINDINGS: LOWER CHEST: The visualized lung bases are clear. There is no pleural effusion. CARDIOVASCULATURE: The heart is normal in size. There is no pericardial effusion. LIVER: The liver is normal in size and contour. The liver has an unremarkable unenhanced appearance. GALLBLADDER / BILE DUCTS: The gallbladder is unremarkable. There is no intra or extrahepatic biliary ductal dilatation. SPLEEN: The spleen is normal in size and has an unremarkable unenhanced appearance. PANCREAS: The pancreas has an unremarkable unenhanced appearance. ADRENAL GLANDS: Unremarkable. KIDNEYS/RETROPERITONEUM: No renal calculi are identified. There is no hydronephrosis. Again seen is a cyst at the lower pole of the right kidney measuring 6.3 cm. LYMPH NODES: No retroperitoneal lymphadenopathy is identified in the abdomen or pelvis. VASCULATURE: The abdominal aorta is normal in caliber. MESENTERY/PERITONEUM: No free fluid. No masses. There is no free intraperitoneal gas. STOMACH: There is a large hiatal hernia. The remainder of the stomach is collapsed. SMALL BOWEL: The small bowel is normal in caliber. COLON: There are scattered diverticula of the of the sigmoid colon. There is no pericolonic inflammatory stranding to suggest diverticulitis. APPENDIX: Normal. URINARY BLADDER/PELVIC ORGANS: The urinary bladder is collapsed, limiting evaluation. The uterus has an unremarkable unenhanced appearance. BONES / SOFT TISSUES: An abdominal wall mesh is seen in place. There is severe degenerative disc disease of the spine. There is slight spondylolisthesis of L4 on L5 and L5 on S1. CT/CT abdomen pelvis wo IV con IMPRESSION: 1. Sigmoid diverticulosis without evidence of diverticulitis. 2. Large hiatal hernia. Electronically signed by: González Sequeira MD 05/15/2025 03:06 PM EDT RP
[2025-05-15 13:15] LABS: Blood Urea Nitrogen 23 mg/dL (9-16); Estimated Glomerular Filt Rate > 60
--- OUTSIDE RECORDS SUMMARY | 2025-05-15 13:38 | XMS_ITS | Clinical Summary ---
Author Organization [facility] [employer] [facility] Address [address] [place] [address] Phone Care Team Providers Care Buffer Inflated Pad Name Role Phone Gogo Grier MD Primary Care Provider [phone] Allergies Active Allergy Reactions Criticality Noted Date [...] To have PFT's in 2 weeks in [place]. She has occasional wheezes. She will need [...] stubbornly adhered. Orders: ECG 12 lead Afib ([facility] V24, [facility] V28) 11/29/2020 Overview (11/25/2024): Initially highly [...] Type Department Care Team Description 04/11/2025 Telephone [facility] Cardiology [facility] [address] [place] [address] Trent Mandujano MD 04/07/2025 11:00 AM EDT Ancillary Procedure [facility] Cardiology [facility] [address] [place] [address] Paroxysmal atrial fibrillation (CMS/HCC V24, CMS/HCC V28) 04/06/2025 2:00 PM EDT Office Visit [facility] Cardiology [facility] [address] [place] [address] Trent Mandujano MD Dyspnea on exertion (Primary Dx); Obesity (BMI 35.0-39.9 without comorbidity); Primary hypertension; Paroxysmal atrial fibrillation (CMS/HCC V24, CMS/HCC V28) 03/24/2025 Telephone [facility] [address] [place] [address] Trent Mandujano MD 03/22/2025 Telephone [facility] [address] [place] [address] Trent Mandujano MD 02/14/2025 Telephone [facility] [address] [place] [address] Trent Mandujano MD from Last 3 Months Surgical History Surgery Date Site/Laterality Comments SE[place] PROCEDURE: [place]ERNIA REPAIR PROCEDURE[place]PA[place] FIRST ABDOMINAL WALL HERNIA Social History [...] (04/07/2025 11:36 AM EDT) Left Atrium Minor [place] 5.1 cm CV PACS Left Atrium Major [place] 5.9 cm CV PACS LA Area Sys [...] Resul t from Last 3 Months Insurance [facility] [place] [id number] Care Teams Buffer Inflated Pad Relationship Specialty Start Date End Date Gogo Grier MD [address] [place] [address] PCP - General 12/03/17
--- OUTSIDE RECORDS SUMMARY | 2025-05-15 13:38 | XMS_ITS | Data Portability ---
Author Organization [place] [facility] Address [address] [place] [address] Care Team Providers Care Handbag Parts Cutter Name Role Phone SHEEBA RAMOS Hose Mender Assessment No assessment recorded. Plan of Treatment [...] or more view - 3v rt hand, wheelman, rm 118 2023 024 [email or web address] [facility], [address], [address], [place], [address], 13:28:13 XR, wrist, 3 or more view - 3v rt wrist, wheelman, rm 118 2023 024 [email or web address] [facility], [address], [address], [place], [address], 13:28:13 Medication Orders None recorded. Patient TargetsNo targets recorded. Patient Instructions Encounter Date Encounter Id Patient Instructions Last Modified By Organization Details Last Modified Time 05/16/2024 [id number] [facility] Custom Hand Orthosis Information Sheet [address] [place] [address] Name: Marija Tompkins Right Diagnosis: Middle finger MCP joint MCL ligament grade 3 sprain Orthosis Code: Finger Hand HFO L 3913 Orthosis Style: Hand-based MCP immobilization orthosis The PURPOSE for this custom orthosis is to: Provide stability and reduce movement at the middle finger MCP joint PRECAUTIONS to consider include: HEAT SOURCES: including, but not limited to, the website programmer, dryer, stove, furnace, heater, car (on a hot summer day). PETS: they like to chew the plastic. SKIN: watch for redness, blisters or any skin irritations. CLEANING: use warm soapy water, wipes or piston maker to keep the plastic clean, cotton socks [...] plan for this custom orthosis Patient Signature: [email or web address] Not available 05/16/2024 12:06:16 Reason for Referral [...] a4ajBk vP9nXo QUaueC m3YtLR FvZlgJ JJ8mAn HZtai3 3d0217 AC0Kqa 32GV6e lKiQtr MwF INTERFACE [facility] [address], [place], [address], 05/16/2024 11:42:23 05/16/20 24 05/16/2024 XR, hand, 3 or more view [email or web address] ?Encry pted=s hAaTro YD8dLq bEUv6g %2BXZw aYqtaq 0bqfl% 2Fg9IQ a4ajBk vP9nXo QUaueC m3YtLR FvZlJ JJ8mAn HZtai3 3n5428 AC0Kqa 32GV6e lKiQtr MwF INTERFACE [facility] [address], [place], [address], 05/16/2024 11:42:26 05/16/20 24 05/16/2024 XR, wrist , 3 or more view [email or web address] ?Encry pted=s hAaTro YD8dLq bEUv6g %2BXZw aYqtaq 0bqfl% 2Fg9IQ a4ajBk vP9nXo QUaueC m3YtLR FvZlgJ JJ8mAn HZtai3 0y1326 AC0Kqa 32GV6S mKiQtr MwF INTERFACE [facility] [address], [place], [address], 05/16/2024 11:46:09 05/16/20 24 05/16/2024 XR, wrist , 3 or more view [email or web address] ?Encry pted=s hAaTro YD8dLq bEUv6g %2BXZw aYqtaq 0bqfl% 2Fg9IQ a4ajBk vP9nXo QUaueC m3YtLR FvZlgJ JJ8mAn HZtai3 4j8325 AC0Kqa 32GV6S mKiQtr MwF INTERFACE [facility] [address], [place], [address], 05/16/2024 11:46:11 Result Notes Documentation Provider Name and Address Organization Details Recorded Time Xr, Hand, 3 Or More View : [email or web address] Encrypted=ajBuVhbVT2xHgtN Uv6g%4PQJrcQqwjw9yruj%2Fg 9PFg9ywPzqH0uXwYZypjHs2Si RTGrCahNJG1wUiOFasd98e612 0IS5Gjh36YV2hzQoAkeAkV Not Available [facility] 05/16/2024 11:42: 24 Xr, Hand, 3 Or More View : [email or web address] Encrypted=daVtWnlNR4rDbdB Uv6g%4AXZypTnudr6mofq%2Fg 3CEt2eyFafM0sKgDDagtWc0Cz YORxDepZBP6gSdLAyqc70a135 5JS8Lfp44XH1arBuSsmBwU Not Available [facility] 05/16/2024 11:42: 26 Xr, Wrist, 3 Or More View : [email or web address] Encrypted=jlMxWzyGH8jQuqA Uv6g%9WGBzrEwsmw4jhgv%2Fg 3SMy1pxRptM2fWrBSseiEg1Tq NOTgRyxIJE2pMnYBctv22t902 7EB4Ajr04IP9ApHtNddXuT Not Available [facility] 05/16/2024 11:46: 10 Xr, Wrist, 3 Or More View : [email or web address] Encrypted=zqOrIyaKX7zIeiV Uv6g%5AMXwbDqigj2tyvo%2Fg 6EHt0pbXysT3yRuTPztwJm9Up KFWmKgoXBK4yIiGCals91t825 0BS1Gha47JJ4UnFgWurAiU Not Available [facility] 05/16/2024 11:46: 12 Medical Equipment None Reported. Allergies Allergen ID Allergen Name Allergen Category Reaction Reaction Severity Criticality Documentation Date Start Date Code Code System Note Provider Name and Address Organization Details Recorded Time 25531 Substance with sulfonami de structure and antibacte rial mechanism of action (substanc e) medicatio n Not available Not available Not available 10/19/20232005 56294 8003 SNOMED Aller gyRea ction : 'Skin React ion'; Not Available [facility] 13:51:52 15327 Bactrim medicatio n Not available Not available Not available 10/19/20232011 02537 9 RxNorm Aller gyRea ction : 'Skin React ion'; Not Available [facility] 13:51:52 Medications Name Sig Start Date Stop [...] Updated DateTime 08/19/2024 162.56 cm RAJ [facility] 08/19/2024 09:18:39 Date Recorded Body height Provider Name an d Address Organization Details Last Updated DateTime 05/16/2024 162.56 cm RA[facility] Nahun Victoriano [facility] 05/16/2024 13:30:15 Date Recorded Body height Provider Name an d Address Organization Details Last Updated DateTime 07/01/2024 162.56 cm YECENIA OHARA [facility] 07/01/2024 09:36:56 Social History None recorded. Functional Status None recorded. Mental Status None recorded. Family History Nothing Reported. Medical History No medical history recorded. Gynecological HistoryNo gynecological history recorded. Obstetrics History GPAL:G 0 P 0 0 0 0 Past Encounters Encounter ID Performer Location Encounter Start Date Encounter Closed Date Diagnosis/Indication Diagnosis SNOMED-CT Code Diagnosis ICD10 Code Diagnosis IMO Codes Diagnosis Note [id number] Joshua Evans MD [facility] [address] [facility] [address] [facility] [place] [address] 05/16/2024 11:12:23 06/11/2024 06:39:21 Pain in right hand 5626032777 10522 M79.641 Pain of right wrist 3169 846980 15400 M25.531 Injury of extensor tendon of hand 991770209 S66.801A Sprain fin rea, metacarpophalangeal joint, radial collateral ligament 374855496 S63.652A [id number] Ludmila Leblanc, OTR/L,CHT [address] [facility] [place] [address] 05/16/2024 12:00:33 05/16/2024 12:36:15 Injury of extensor tendon of hand 931446271 S66.801A Today to protect the injured finger [...] maintain alignment of the involved structures . [id number] Elan Hawkins PA-C [place] [address], [place] [address] 07/01/2024 09:14:14 07/19/2024 14:13:14 Osteoarthritis of finger joint of right hand 0694559716 2418605 M19.041 [id number] Ludmila Leblanc, OTR/L,CHT [place] [address] [place] [address] 07/04/2024 10:17:16 07/04/2024 10:30:46 Sprain of ligament of metacarpophalangeal joint of right middle finger 4866935993 6718811 S63.652D [id number] The previous custom orthosis that I had [...] been provided some Coban by the physician regulatory affairs assistant. I have provided the patient today [...] itis of finger joint of right hand 8663380854 6397754 M15.6 [id number] Further discussion with this patient and an [...] Such modificati ons would include a larger game designer pen. [id number] MD JULIEN Johnson [facility] [place] [address] [place] [address] 08/19/2024 09:05:34 09/05/2024 14:48:53 Sprain of ligament of metacarpophalangeal joint of right middle finger 8081019543 5503464 S63.652D [id number] Health Concerns Section Related Observation LastModified by Organization Detai ls LastModified Time None Recorded Concern Status LastModified by Organization Details LastModified Time None Recorded Advance Directives Directive None Recorded Payers Insurance Date Sequence Insurance Name Policy Number Policy Pope Covered Member ID Pope Member ID Guarantor Name 06/15/2024 [facility] Marija Tompkins 06/15/2024 [facility] Marija Tompkins Notes Date Note Type Note Provider Name and Address Organization Details Recorded Time 05/16/2024 text/html ROS as noted in the HPI Diagnosis: Grade 3 RCL injury MCP joint right middle [id number] female who injured her right hand when [...] digitsX-rays ordered, obtained, and reviewed today at [facility]: PA, lateral, oblique views of the [...] up as directed. Joshua Evans MD [address], [place], [address], [facility] 05/18/2024 08:00:37 05/16/2024 text/html recent fall at work injured right hand, saw Dr Evans today. This patient has a grade 3 MCL sprain of the MCP joint of the right middle finger Ludmila Leblanc, OTR/L,CHT [address], [place], [address], [facility] 05/16/2024 12:36:09 07/01/2024 text/html ROS as noted in the HPI I am seeing the patient under the general supervision of Dr. Evans diagnosis: Grade 3 RCL injury MCP joint right middle finger May 02, 2024Severe DIP joint osteoarthritis right middle [id number] female who injured her right hand when [...] 6 weeks for reexamination. JOE Greene-Janelle [email or web address], [place], [address], [facility] 07/01/2024 10:07:11 07/01/2024 text/html 05/02/24 fall at [...] pain as well. Ludmila Leblanc, OTR/L,CHT [email or web address], [place], [address], [facility] 07/04/2024 10:30:29 08/19/2024 text/html ROS as noted in the HPI Diagnosis:1. Severe osteoarthritis right hand 2. Grade 3 RCL [...] me at her discretion. Joshua Evans MD [address] [place] [address] [address], [place], [address], [facility] 08/19/2024 10:21:22 OBGyn Episode No OBEpisode recorded.
--- OUTSIDE RECORDS SUMMARY | 2025-05-15 13:39 | XMS_ITS | Patient Health Record ---
Author Organization [facility] Address [address] [facility] [place] [address] Care Team Providers Care Retail Associate Name Role Phone Gogo Grier MD Primary Care Provider Shahla Burkett Unavailable [phone] Allergies Allergen (clinical drug ingredient) Drug/Non Drug Allergy documented on EMR Reaction Allergy Type Onset Date Status sulfamethoxazole / trimethoprim Bactrim hives Drug Allergy Active Reason For Referral No Information Medications Medication SIG (Take, Route, Frequency, Duration) Notes Start Date End Date Status Breo Ellipta 100-25 MCG/INH Inhalation; Duration: 90 Active Metoprolol Succinate 50 MG 3 capsule Ora lly Once a day; Duration: 30 days 150mg Active Excedrin Extra Strength Active Imitrex 25 MG 1 tablet as needed Orally Twice a day PRN Active Ventolin HFA 108 (90 Base) MCG/ACT Inhalation; Duration: 30 Not-Taking methylPREDNISolone 4 MG Oral; Duration: 6 Not-Taking Voltaren 1 % Transdermal; Duration: 7 Not-Taking Azithromycin 250 MG Oral; Duration: 5 Not-Taking Losartan Potassium 50 MG Oral; Duration: 90 Not-Taking predniSONE 50 MG Oral; Duration: 5 Not-Taking ZyrTEC Allergy 10 MG 1 capsule Orally Once a day; Duration: 30 day(s) Active Immunizations Vaccine Route Administration Date Status Comme nts COVID-19 Vasyl & Vasyl/Ramu Unknown 11/14/2020 Administered First Dose: 10/16 Social History Tobacco Use: Social History Observation Description Date Details (start date - stop date) Never Smoker NA - NA Alcohol Screen Question Answer Notes Did you have a drink contain ing alcohol in the past year? Yes How often did you have a dri nk containing alcohol in the past year? Monthly or less (1 point) Points 1 Interpretation Negative Tobacco use other than smoking: Question Answer Notes Are you an other tobacco user? No Tobacco Control (Standard) Question Answer Notes Tobacco use: Nonsmoker Additional Findings: Tobacco non-user Current no nsmoker AUDIT-C (Standard) Question Answer Notes Did you have a drink contain ing alcohol in the past year? Yes How often did you have a dri nk containing alcohol in the past year? 2 to 3 times a week (3 points) How many drinks did you have on a typical day when you were drinking in the past year? 1 or 2 drinks (0 point) How often did you have six o r more drinks on one occasion in the past year? Never (0 point) Points 3 Interpretation Positive Problems Problem Type SNOMED Code ICD Code Onset Dates Problem Status W/U Status Risk Notes Problem Plantar wart (82900798) Plantar wart (B07.0) Active confirmed Problem Varicose veins of lower limb co-occurrent with edema (707820687) Varicose veins of bilateral lower extremities with pain (I83.813) Active confirmed Problem Acquired hammer toe of lesser toe of left foot (200476763249 15720) Hammer toe of left foot (M20.42) Active confirmed Vital Signs Blood pressure diastolic 80 mm Hg 05/03/2025 Height 5 ft 5 in in 05/03/2025 Blood pressure systolic 128 mm Hg 05/03/2025 Weight 210 lbs 05/03/2025 BMI 34.94 kg/m2 05/03/2025 Encounters Encounter Location Date Provider Diagnosis [facility] [address] [place] [address] 05/03/2025 Shahla Perica Pain in right toe(s) M79.674 ; Onychomycosis B35.1 ; Pain in left toe(s) M79.675 ; Local edema R60.0 and Varicose veins of bilateral lower extremities with pain I83.813 Assessments Encounter Date Diagnosis (ICD Code) Assessment Notes Treatment Notes Treatment Clinical Notes Section Notes 05/03/2025 Pain in right toe(s) (ICD-10 - M79.674) 05/03/2025 Onychomycosis (ICD-10 - B35.1) 05/03/2025 Pain in left toe(s) (ICD-10 - M79.675) 05/03/2025 Local edema (ICD-10 - R60.0) 05/03/2025 Varicose veins of bilateral lower extremities with pain (ICD-10 - I83.813) Plan Of Treatment Pending Test Test Name Order Date X ray : Foot, left 3V 03/31/2018 [id number] Plate 03/31/2018 Insurance Providers Payer Name Payer Address Payer Phone Subscriber Number Group Number Insured Name Patient Relationship to Insured Coverage Start Date Coverage End Date [facility] [address] [place] [id number] Marija Tompkins Self - patient is the insured Medical (General) History Medical History History ICD Code Arthritis asthma Back,Hip,and Knee pain Headaches/Migraines High blood pressure Sciatica Vascular phlebitis (clots) Surgical History Surgery Date(Month/Year) Hospitalization History Reason Date(Month/Year) [facility] Afib 04/2018
[2025-05-15 14:01] LABS: Appearance Urine Clear; Glucose Urine UA Negative (Negative); PH 5.5 (5.0-9.0); Specific Gravity - Urine 1.025 (1.005-1.025); UMIC TRIGGER UA YES
[2025-05-15] MEDS: Barium Sulfate Oral (Mocha) 450 ML ORAL.SUSP 900 ML PO (14:38)
== END 2025-05-15 12:27 | disposition home or self-care (01) ==
LOC: HO.CT 12:26
PROVIDERS: PCP Internal Medicine; Visit Provider Internal Medicine
DX: K57.92 Diverticulitis of intestine, part unspecified, without perforation or abscess without bleeding (principal); R10.9 Unspecified abdominal pain
CPT/HCPCS: 36415; 74176; 81001; 82565; 84520; 87086

== ENCOUNTER → 2025-05-15 12:29 | Outpatient (BNV) | payer OTHER, SELFPAY | PROVIDERS: PCP Internal Medicine; Visit Provider Radiology Diagnostic Radiology | DX: K57.30 Diverticulosis of large intestine without perforation or abscess without bleeding (principal); K44.9 Diaphragmatic hernia without obstruction or gangrene | CPT/HCPCS: 74176 ==

== ENCOUNTER 2025-06-29 13:24 | Outpatient (AMB) | payer OTHER, SELFPAY ==
[2025-06-29 13:27] VITALS: BP 178/104; PULSE 67; O2SAT 94
--- NOTE | 2025-06-29 13:27 | A.OFFVIS_ITS ---
Vital Signs 06/29/25 13:27 06/29/25 13:58 Height 5 ft 4 in BMI Reason not done Patient refused/unable BP 178/104 H 164/80 H Blood Pressure Location Lt brachial Lt brachial Position Sitting Sitting Pulse 67 Pulse Source Pulse Oximeter Pulse Oximetry (%) 94 Oxygen Delivery Method Room Air Intake Visit Reasons: Interstitial lung disease Tobacco Warehouse Manager Required: No Accompanied by: Self / Same As Patient Allergies sulfamethoxazole (From Bactrim) Allergy (Mild, Verified 06/29/25 13:31) RASH trimethoprim (From Bactrim) Allergy (Mild, Verified 06/29/25 13:31) RASH Sulfa (Sulfonamide Antibiotics) Allergy (Unknown, Verified 06/29/25 13:31) rash amoxicillin Adverse Reaction (Unknown, Verified 06/29/25 13:31) nausea and vomiting lisinopril Adverse Reaction (Unknown, Verified 06/29/25 13:) cough HPI Comments Details: The patient is a 79 year woman with a known history of atrial fibrillation presenting with dyspnea symptoms. Her symptoms symptoms have been getting worse for the last year. She had been noticing that even minimal activities resulting in significant breathlessness. Gtht-wo-xirofzmi severity. She does have a history atrial fibrillation and follows up closely with Cardiology. She recently had an echocardiogram demonstrating left ventricular hypertrophy. The patient also underwent pulmonary function studies which I personally reviewed. The patient does have a mild restrictive ventilatory defect. Appears to also have a ikpy-wt-[id number] diffusion impairment but it does correct to normal when corrected for the alveolar volume. This suggests the likelihood of hypo expansion playing a role. During the visit we did go for a walking oximetry. T he patient did desaturate down to 93%. Heart rate was stable at 84 since she takes metoprolol. She does have lower extremity edema. Currently she is taking Breo and she tolerates that well. She is agreeable to starting Incruse to see if we can optimize her respiratory capacity. In the meantime work on low-dose sodium diet and will give her Lasix 20 mg in the morning x3 days to improve her volume status. The patient is also having daytime drowsiness. With the atrial fibrillation other cardiovascular risks and her elevated Trilla score of 11/24. The patient should have a sleep study. Will go ahead and arrange for home sleep study this time. Regarding imaging studies we did look at her x-ray that she had normal otherwise. She also had a CT scan of the abdomen from 2019 which I personally reviewed demonstrating normal lung parenchyma of the lung windows. This is overall reassuring I do not foresee that the restrictive ventilatory defect is related to any parenchymal disease at this time. No evidence of any crackles on exam either. 06/29/2025 the patient is here for pulmonary follow-up visit. The patient overall is doing about the same. She still complains of dyspnea on exertion even with minimal activity. She continues on the Breo. she did not start the Incruse. She is not interested in trying any inhalers at this time. She feels comfortable with the Breo. Therefore she will continue for now. The patient also did have a CT scan of the abdomen we did review together her lung windows are good just showing some mosaic pattern from air trapping. Therefore explained to her the importance of using her inhalers to improve with the air trapping issue that can be affecting her breathing. But she understands that her dyspnea is multifactorial as her abdominal girth is definitely pushing on her diaphragm and not allowing her lungs to expand well. She did have pulmonary function studies demonstrating a mild restriction consistent with her body habitus. in addition to this the patient did have elevations in her blood pressure today significantly 174/108. We did check the blood pressure again and systolic went down to about 168. And we did emphasize to the patient that she needs to follow-up with primary care or Cardiology to have a blood pressure check. 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 She is concerned about the hiatal hernia that is appears to be larger. We did talk about making sure she follows a reflux diet making sure that she sleeps elevated and avoid eating too late. Otherwise the patient will continue with the current therapy will follow-up in 6-8 months if she has any issues she can always call for an earlier assessment Or recommendations. [facility] Medical History Chronic restrictive lung disease LAUREANO (obstructive sleep apnea) Asthma Annual physical exam Hyperglycemia Hyperlipidemia Morbid obesity Atrial fibrillation Migraine Surgical History History of section History of incisional hernia repair S/P colon resection Family History Father CHF (congestive heart failure) Mother No problems noted. Son No problems noted. Son No problems noted. Social History Household Members: Other Housing: House Do you presently have visiting nurse or other home services: No Alcohol intake: never Patient Tobacco Use Status: Never used Tobacco e-Cigarette/Vaping Use: Never Used service: No Current occupational status: employed Cognitive needs: No Hearing needs: No Vision needs: Yes Review of Systems Const Reports daytime sleepiness and Reports weight gain Eyes Reports no additional complaints ENT Denies sore throat Card Denies chest pain and Reports dyspnea on exertion Resp Reports cough, Reports dyspnea on exertion and Denies wheezing GI Reports dyspepsia and Reports heartburn Musc Reports myalgias Skin/Breast Denies rash Neuro Reports no additional complaints Oumar/Lymph Reports no additional complaints Aller/Immun Denies wheezing Physical Exam Vital Signs: Last Vital Signs Pulse 67 06/29/25 13:27 BP 164/80 H 06/29/25 13:58 Pulse Ox 94 06/29/25 13:27 Oxygen Delivery Method Room Air 06/29/25 13:27 Const General: comfortable HEENT Head: Yes normocephalic Neck Neck: Yes supple Chest Chest palpation & inspection: normal inspection of the chest Resp Effort & Inspection: normal respiratory effort Auscultation: diminished lung sounds Cardio Heart sounds: S1 normal heart sound present and S2 normal heart sound present GI Palpation (GI): Soft to palpation Skin General skin exam: no rashes or lesions noted Extrem General: Yes clubbing, Yes cyanosis and No edema Assessment & Plan Assessment & Plan (1) BLANCHARD (dyspnea on exertion): Code(s): R06.09 - Other forms of dyspnea Category: Medical (2) Atrial fibrillation: Code(s): I48.91 - Unspecified atrial fibrillation Category: Medical Qualifiers: Atrial fibrillation type: unspecified chronic Qualified Code(s): I48.20 - Chronic atrial fibrillation, unspecified (3) LAUREANO (obstructive sleep apnea): Code(s): G47.33 - Obstructive sleep apnea (adult) (pediatric) Category: Medical (4) Asthma: Code(s): J45.909 - Unspecified asthma, uncomplicated Category: Medical Qualifiers: Asthma complication type: uncomplicated Asthma persistence: persistent Asthma severity: moderate Qualified Code(s): J45.40 - Moderate persistent asthma, uncomplicated (5) Chronic restrictive lung disease: Code(s): J98.4 - Other disorders of lung Category: Medical (6) Hypertension: Code(s): I10 - Essential (primary) hypertension Category: Medical Qualifiers: Hypertension type: primary hypertension Qualified Code(s): I10 - Essential (primary) hypertension Plan continue Breo consider Incruse Low sodium diet F/U with PCP/Cardiology re: elevated BPs weight management F/U 6-8 months Coding Level of Care Code Est Pt Level 4 (74339) Complex EM visit Add On G2211 Diagnoses BLANCHARD (dyspnea on exertion) R06.09 Chronic atrial fibrillation I48.20 Atrial fibrillation type: unspecified chronic LAUREANO (obstructive sleep apnea) G47.33 Moderate persistent asthma without complication J45.40 Asthma complication type: uncomplicated Asthma persistence: persistent Asthma severity: moderate Chronic restrictive lung disease J98.4 Primary hypertension I10 Hypertension type: primary hypertension Time Spent (min) 17
[2025-06-29 13:58] VITALS: BP 164/80
--- OUTSIDE RECORDS SUMMARY | 2025-06-29 16:41 | XMS_ITS | Clinical Summary ---
Author Organization [facility] Address [address] [place] [address] Phone Care Team Providers Care Rectifying Operator Name Role Phone Gogo Grier MD Primary Care Provider [phone] Allergies Active Allergy Reactions Criticality Noted Date [...] To have PFT's in 2 weeks in [place]. She has occasional wheezes. She will need [...] adhered. Orders: ECG 12 lead Afib ([facility] V24, [facility] V28) 11/29/2020 Overview (11/25/2024): Initially highly symptomatic [...] Type Department Care Team Description 04/11/2025 Telephone [facility] [address] [place] [address] Trent Mandujano MD 04/07/2025 11:00 AM EDT Ancillary Procedure [facility] [address] [place] [address] Paroxysmal atrial fibrillation (CMS/HCC V24, CMS/HCC V28) 04/06/2025 2:00 PM EDT Office Visit [facility] [address] [place] [address] Trent Mandujano MD Dyspnea on exertion (Primary Dx); Obesity (BMI 35.0-39.9 without comorbidity); Primary hypertension; Paroxysmal atrial fibrillation (CMS/HCC V24, CMS/HCC V28) from Last 3 Months Surgical History Surgery Date Site/Laterality Comments SECTION PROCEDURE: [facility] DELIVERY ONLY HERNIA REPAIR PROCEDURE: [facility] REPAIR FIRST ABDOMINAL WALL HERNIA Social History Tobacco Use Types Packs/Day Years Used Date Smoking Tobacco: Former Cigarettes 0 Q uit: 08/17/1979 Smokeless Tobacco: Never Alcohol [...] Test 07/27/2022 Depression Screening 08/17/2024 COVID-19 Vaccine (2024-2 6 season) 2025 11/14/2020, 10/26/2020 Influenza Vaccine [...] (04/07/2025 11:36 AM EDT) Left [facility] [place] 5.1 cm CV PACS Left At[facility] Major [place] 5.9 cm CV PACS [place] [facility] Sys [...] Resul t from Last 3 Months Insurance [facility] Care Teams Rectifying Operator Relationship Specialty Start Date End Date Gogo Grier MD [address] [place] [address] PCP - General 12/03/17
--- OUTSIDE RECORDS SUMMARY | 2025-06-29 16:41 | XMS_ITS | Patient Health Record ---
Author Organization [facility] Address [address] [place] [address] Care Team Providers Care Band Machine Operator Name Role Phone Gogo Grier MD Primary Care Provider Shahla Burkett Unavailable [phone] Allergies Allergen (clinical drug ingredient) Drug/Non Drug [...] W/U Status Risk Notes Problem Plantar wart (51790301) Plantar wart (B07.0) Active confirmed Problem Varicose veins of lower limb co-occurrent with edema (050499262) Varicose veins of bilateral lower extremities with pain (I83.813) Active confirmed Problem Acquired hammer toe of lesser toe of left foot ([id number]) Hammer toe of left foot (M20.42) Active confirmed Vital Signs Blood pressure diastolic 80 mm Hg 05/03/2025 Height 5 ft 5 in in 05/03/2025 Blood pressure systolic 128 mm Hg 05/03/2025 Weight 210 lbs 05/03/2025 BMI 34.94 kg/m2 05/03/2025 Encounters Encounter Location Date Provider Diagnosis [facility] [address] [place] [address] 05/03/2025 Shahla Perica Pain in right toe(s) [...] X ray : Foot, left 3V 03/31/2018 [id number] Plate 03/31/2018 Insurance Providers Payer Name Payer Address Payer Phone Subscriber Number Group Number Insured Name Patient Relationship to Insured Coverage Start Date Coverage End Date [employer] [facility] [employer] [address] [place] [address] [id number] Marija Tompkins Self - patient is the insured Medical (General) History Medical History History ICD Code Arthritis asthma Back,Hip,and Knee pain Headaches/Migraines High blood pressure Sciatica Vascular phlebitis (clots) Surgical History Surgery Date(Month/Year) Hospitalization History Reason Date(Month/Year) [facility] Afib 04/2018
--- OUTSIDE RECORDS SUMMARY | 2025-06-29 16:41 | XMS_ITS | Data Portability ---
Author Organization [place] - [facility], [facility] Address [address] [place] [address] Care Team Providers Care Reinsurance Analyst Name Role Phone SHEEBA RAMOS Car Tester Assessment No assessment recorded. Plan of Treatment [...] or more view - 3v rt hand, manpower development manager, rm 118 2023 024 [email or web address] [facility], [address], [address], [place], [address], 13:28:13 XR, wrist, 3 or more view - 3v rt wrist, manpower development manager, rm 118 2023 024 [email or web address] [facility], [address], [address], [place], [address], 13:28:13 Medication Orders None recorded. Patient TargetsNo targets recorded. Patient Instructions Encounter Date Encounter Id Patient Instructions Last Modified By Organization Details Last Modified Time 05/16/2024 [id number] [facility] Custom Hand Orthosis Information Sheet [address] [place] [address] Name: Marija Tompkins Right Diagnosis: Middle finger MCP joint MCL ligament grade 3 sprain Orthosis Code: Finger Hand HFO L 3913 Orthosis Style: Hand-based MCP immobilization orthosis The PURPOSE for this custom orthosis is to: Provide stability and reduce movement at the middle finger MCP joint PRECAUTIONS to consider include: HEAT SOURCES: including, but not limited to, the product development chemist, dryer, stove, furnace, heater, car (on a hot summer day). PETS: they like to chew the plastic. SKIN: watch for redness, blisters or any skin irritations. CLEANING: use warm soapy water, wipes or carbide powder processor to keep the plastic clean, cotton socks [...] plan for this custom orthosis Patient Signature: [email or web address] Not available 05/16/2024 12:06:16 Reason for Referral [...] a4ajBk vP9nXo QUaueC m3YtLR FvZlgJ JJ8mAn HZtai3 1o7391 AC0Kqa 32GV6e lKiQtr MwF INTERFACE [facility] [address], [place], [address], 05/16/2024 11:42:23 05/16/20 24 05/16/2024 XR, hand, 3 or more view [email or web address] ?Encry pted=s hAaTro YD8dLq bEUv6g %2BXZw aYqtaq 0bqfl% 2Fg9IQ a4ajBk vP9nXo QUaueC m3YtLR FvZlJ JJ8mAn HZtai3 2f6889 AC0Kqa 32GV6e lKiQtr MwF INTERFACE [facility] [address], [place], [address], 05/16/2024 11:42:26 05/16/20 24 05/16/2024 XR, wrist , 3 or more view [email or web address]:/ [email or web address] ?Encry pted=s hAaTro YD8dLq bEUv6g %2BXZw aYqtaq 0bqfl% 2Fg9IQ a4ajBk vP9nXo QUaueC m3YtLR FvZlgJ JJ8mAn HZtai3 4m0647 AC0Kqa 32GV6S mKiQtr MwF INTERFACE [facility] [address], [place], [address], 05/16/2024 11:46:09 05/16/20 24 05/16/2024 XR, wrist , 3 or more view [email or web address] ?Encry pted=s hAaTro YD8dLq bEUv6g %2BXZw aYqtaq 0bqfl% 2Fg9IQ a4ajBk vP9nXo QUaueC m3YtLR FvZlgJ JJ8mAn HZtai3 2f4224 AC0Kqa 32GV6S mKiQtr MwF INTERFACE [facility] [place] [facility] [address], [place], [address], 05/16/2024 11:46:11 Result Notes Documentation Provider Name and Address Organization Details Recorded Time Xr, Hand, 3 Or More View : [email or web address] Encrypted=fhBxCtlLX8rJpxB Uv6g%7PWOywUmolh5pxei%2Fg 6AFg8oxPbjM5aSwFCkvmMi1Dd KNZoNpkLHC1mHpDLbvw47t882 6XO9Xac83WH1vfYaBfpLqL Not Available [facility] 05/16/2024 11:42: 24 Xr, Hand, 3 Or More View : [email or web address] Encrypted=wcNoFbhPL0lWmjQ Uv6g%4YMZmdMfjnf8eesr%2Fg 9PGu4cxRjfG8cFpPSgcoDp6Fx SFIlYgxEAJ1vKdVJmcu35t586 7ED9Ctr11UI6ntVpWxqWtR Not Available [facility] 05/16/2024 11:42: 26 Xr, Wrist, 3 Or More View : [email or web address] Encrypted=fsOoXwwGM5mJfkG Uv6g%4HNKhsGtevr1yrft%2Fg 9NKd6wiIclH3gIkOXmloJr1Rn DBLsWinUEX5hFcWEgzs35t884 5HU1Wfx09ZI8FhFgLhrAeC Not Available [facility] 05/16/2024 11:46: 10 Xr, Wrist, 3 Or More View : [email or web address] Encrypted=jmXmEtvSJ3lDbjP Uv6g%3FWYwjEsmtu6ienk%2Fg 9IQw1mzMkyH0aXjDOqkqCc7Bi MLLrWxnCFP8vFyGQgad38l412 8PL5Ndo59BE7VzCrAwwOqJ Not Available [facility] 05/16/2024 11:46: 12 Medical Equipment None Reported. Allergies Allergen ID Allergen Name Allergen Category Reaction Reaction Severity Criticality Documentation Date Start Date Code Code System Note Provider Name and Address Organization Details Recorded Time 35345 Substance with sulfonami de structure and antibacte rial mechanism of action (substanc e) medicatio n Not available Not available Not available 10/19/20232005 02672 8003 SNOMED Aller gyRea ction : 'Skin React ion'; Not Available [facility] 13:51:52 64013 Bactrim medicatio n Not available Not available Not available 10/19/20232011 19967 9 RxNorm Aller gyRea ction : 'Skin React ion'; Not Available [facility] 13:51:52 Medications Name Sig Start Date Stop [...] Updated DateTime 08/19/2024 162.56 cm RAJ Past[facility] 08/19/2024 09:18:39 Date Recorded Body height Provider Name an d Address Organization Details Last Updated DateTime 05/16/2024 162.56 cm RAJ HAIRSTON [facility] Nahun Victoriano [facility] 05/16/2024 13:30:15 Date Recorded Body height Provider Name an d Address Organization Details Last Updated DateTime 07/01/2024 162.56 cm YECENIA OHARA [facility] Marva [facility] 07/01/2024 09:36:56 Social [...] ICD10 Code Diagnosis IMO Codes Diagnosis Note [id number] Joshua vEans MD [facility] [place] [facility] [facility] [address] [facility] [place] [address] 05/16/2024 11:12:23 06/11/2024 06:39:21 Pain of right hand 2427486080 78249 M79.641 Pain of right wrist 3169 696679 70294 M25.531 Injury of extensor tendon of hand 803985496 S66.801A Sprain fin rea, metacarpophalangeal joint, radial collateral ligament 230566524 S63.652A [id number] Ludmila Leblanc, OTR/L,CHT [address] [facility] [place] [address] 05/16/2024 12:00:33 05/16/2024 12:36:15 Injury of extensor tendon of hand 402256260 S66.801A Today to protect the injured finger [...] maintain alignment of the involved structures . [id number] Elan Hawkins PA-C [facility] [address], [place] [address] 07/01/2024 09:14:14 07/19/2024 14:13:14 Osteoarthritis of finger joint of right hand 0455391414 8058814 M19.041 [id number] Ludmila Leblanc, OTR/L,CHT [facility] [address] [place] [address] 07/04/2024 10:17:16 07/04/2024 10:30:46 Sprain of ligament of metacarpophalangeal joint of right middle finger [id number] 1751510 S63.652D [id number] The previous custom orthosis that I had [...] been provided some Cob[place] by the physician law office assistant. I have provided the patient today [...] itis of finger joint of right hand [id number] 3383757 M15.5 [id number] Further discussion with this patient and an [...] Such modificati ons would include a larger metal technician pen. [id number] MD JULIEN Johnson - [place] [address] [place] [address] 08/19/2024 09:05:34 09/05/2024 14:48:53 Sprain of ligament of metacarpophalangeal joint of right middle finger 5585361271 7040913 S63.652D [id number] Health Concerns Section Related Observation LastModified by Organization Detai ls LastModified Time None Recorded Concern Status LastModified by Organization Details LastModified Time None Recorded Advance Directives Directive None Recorded Payers Insurance Date Sequence Insurance Name Policy Number Policy Pope Covered Member ID Pope Member ID Guarantor Name 06/15/2024 [facility] Marija Tompkins 06/15/2024 [facility] Marija Tompkins Notes Date Note Type Note Provider Name and Address Organization Details Recorded Time 05/16/2024 text/html ROS as noted in the HPI Diagnosis: Grade 3 RCL injury MCP joint right middle [id number] female who injured her right hand when [...] digitsX-rays ordered, obtained, and reviewed today at [facility]: PA, lateral, oblique views of [...] up as directed. Joshua Evans MD [address], [place], [address], [facility] 05/18/2024 08:00:37 05/16/2024 text/html recent fall at work injured right hand, saw Dr Evans today. This patient has a grade 3 MCL sprain of the MCP joint of the right middle finger Ludmila Leblanc, OTR/L,CHT [address], [place], [address], [facility] 05/16/2024 12:36:09 07/01/2024 text/html ROS as noted in the HPI I am seeing the patient under the general supervision of Dr. Evans diagnosis: Grade 3 RCL injury MCP joint right middle finger May 02, 2024Severe DIP joint osteoarthritis right middle -jqut-cqy female who injured her right hand when [...] 6 weeks for reexamination. JOE Greene-Janelle [address], [place], [address], [facility] 07/01/2024 10:07:11 07/01/2024 text/html 05/02/24 [...] pain as well. Ludmila Leblanc, OTR/L,CHT [address], [place], [address], [facility] 07/04/2024 10:30:29 08/19/2024 text/html ROS [...] me at her discretion. Joshua Evans MD [address] [place] [address] [address], [place], [address], [facility] 08/19/2024 10:21:22 OBGyn Episode No OBEpisode recorded.
== END 2025-06-29 14:03 | disposition home or self-care (01) ==
LOC: HO.HPS 13:25
PROVIDERS: PCP Internal Medicine; Visit Provider Hospitalist
DX: R06.09 Other forms of dyspnea (principal); I48.20 Chronic atrial fibrillation, unspecified; G47.33 Obstructive sleep apnea (adult) (pediatric); J45.40 Moderate persistent asthma, uncomplicated; J98.4 Other disorders of lung; I10 Essential (primary) hypertension
CPT/HCPCS: 99214